=== PATIENT | male | born 1940 | race Caucasian/White ===

== ENCOUNTER 2018-06-23 11:19 | Emergency (ER) | payer MEDICARE ==
[2018-06-23 13:47] LABS: #Eosinphils 0.1 thou/uL (0.0-0.7); #Monocytes 0.5 thou/uL (0.11-0.59); #Neutrophils 3.9 thou/uL (1.40-6.50); %Basophils 0.3 % (0.0-1.0); %Eosinophils 1.2 % (0.0-10.0); %Lymphocytes 18.3 % (21.0-51.0); %Monocytes 8.7 % (0.0-10.0); %Neutrophils 71.5 % (42.0-75.0); Hemoglobin 11.5 g/dL (14.0-18.0); Mean Corpuscular HGB CONC 32.9 g/dL (32.0-36.0); Mean Corpuscular Hemoglobin 33.1 pg (27.0-31.0); Mean Platelet Volume 6.7 fL (7.4-10.4); Platelet Count 187 thou/uL (130-400); RBC Distribution Width 12.8 % (11.5-14.5); Red Blood Cell (RBC) Count 3.49 mill/uL (4.70-6.10); White Blood Cell (WBC) Count 5.5 thou/uL (4.8-10.8)
[2018-06-23 14:09] LABS: ALT (SGPT) 20 U/L (8-55); AST (SGOT) 19 U/L (5-34); Alkaline Phosphatase 98 U/L (40-150); Anion Gap 12 mmol/L (10-20); BUN (Urea Nitrogen) 18 mg/dL (8.4-25.7); Bilirubin, Total 1.4 mg/dL (0.2-1.2); CRP (Inflammatory) Less than 0.50 mg/dL (= or < 0.5); Calc. Creatinine Clearance 0 mL/min (70-130); Calcium 9.4 mg/dL (7.8-10.44); Carbon Dioxide 28 mmol/L (23-31); Chloride 101 mmol/L (98-107); Estimated GFR-MDRD Greater than 90; Globulin 2.3 g/dL (2.4-3.5); Glucose 89 mg/dL (83-110); Potassium 3.9 mmol/L (3.5-5.1); Protein, Total 6.3 g/dL (5.8-8.1); Sodium 137 mmol/L (136-145)
--- NOTE | 2018-06-23 14:11 | RAD ---
THREE VIEWS LUMBOSACRAL SPINE: COMPARISON: None. HISTORY: Back pain for 4 months. FINDINGS: Three views lumbosacral spine show a wedge-compression deformity of the L1, L3, and L4 vertebral bodi es. The L1 vertebral body demonstrates approximately 75% height loss. The L3 and L4 vertebral ene s demonstrate approximately 50% height loss. No significant subluxation of the vertebral bodies is se en. Small osteophytes are seen throughout the lumbar spine. Vascular calcifications are seen. IMPRESSION: Wedge compression deformities of L1, L3, and L4 are likely secondary to chronic compression deformity . POS: [facility]
[2018-06-23] MEDS ORDERED: HYDROcodone/Acetaminophen 5/325 mg Tablet ONE (14:29)
[2018-06-23] MEDS ORDERED: Bacitracin Zinc 1 Packet ONE (14:40)
== END 2018-06-23 14:23 | disposition home or self-care (01) ==
LOC: ERS 11:19
DX: I87.2 Venous insufficiency (chronic) (peripheral) (principal); M54.5 Low back pain; I25.10 Atherosclerotic heart disease of native coronary artery without angina pectoris; I25.2 Old myocardial infarction; I48.91 Unspecified atrial fibrillation; I11.0 Hypertensive heart disease with heart failure; I50.9 Heart failure, unspecified; E78.5 Hyperlipidemia, unspecified; Z87.891 Personal history of nicotine dependence; Z79.899 Other long term (current) drug therapy
CPT/HCPCS: 36415; 72100; 80053; 85025; 85652; 86140

== ENCOUNTER 2018-07-01 09:03 | Outpatient (CLI) | payer MEDICARE ==
[2018-07-01] MEDS ORDERED: Sodium Chloride 0.9% 15 ML NEB ONE (10:00)
--- NOTE | 2018-07-02 07:10 | HP ---
DATE OF SERVICE: 07/01/2018 HISTORY OF PRESENT ILLNESS: Ms. Rut Dejesus is a very pleasant 78-year-old who presents to the [facility] for evaluation of an ulceration of the left anterior lower leg. The patient and his wif e state that Mr. Dejesus was being seen in the Emergency Department for back pain and the ulceration o f the left lower leg was noted. At this time, arrangements were made for the patient to be seen in [facility] [place]. The patient's states that for the past 2 weeks, the wound has been cleansed with Cetaphil and dressed with an antibiotic ointment followed by either a Band-Aid or more recently gauze secured with paper tape. The patient's states that the patient was prescribed co mpression garments several years ago which he uses on an intermittent basis. PAST MEDICAL HISTORY: 1. Coronary artery disease. 2. History of supraventricular tachycardia, status post ablation x5. 3. Osteoarthritis. 4. Ischemic cardiomyopathy. 5. History of ventricular tachycardia. 6. Hypothyroidism. 7. Hypertension. 8. Nephrolithiasis. 9. Reactive airway disease. PAST SURGICAL HISTORY: 1. Coronary artery bypass grafting x4/redo coronary artery bypass gafting. 2. Excision of right wrist ganglion. 3. Right knee arthroplasty. 4. Surgery for left olecranon bursitis. 5. Left ankle surgery. 6. Bilateral herniorrhaphy. 7. Pacemaker/defibrillator implantation. 8. Appendectomy/herniorrhaphy. MEDICATIONS: 1. Levothyroxine. 2. Amiodarone. 3. Coreg. 4. Clopidogrel. 5. Folic acid. 6. Lasix. 7. Spironolactone. 8. Methotrexate. 9. Atorvastatin. 10. Lisinopril. 11. Risedronate Sodium. 12. Multivitamin. 13. Vitamin D3. 14. Turmeric curcumin. 15. Probiotics. 16. Melatonin. ALLERGIES: No known diagnosed allergies. SOCIAL HISTORY: Significant for tobacco use in the past. The patient states that he smoked a pipe f or 25 years, but stopped smoking in 1984. The patient also admits to the consumption of 3-4 drinks p er day for the past 60 years. He states he is not consuming alcohol at the present time because of h is use of p.o. pain medication. FAMILY HISTORY: Significant for coronary artery disease. The patient's mother was diagnosed with co ronary artery disease. Family history is negative for diabetes mellitus. PHYSICAL EXAMINATION: VITAL SIGNS: Temperature 97.8, pulse 89, respirations 19, blood pressure 129/78. GENERAL: A 78-year-old gentleman sitting on chair in examination room in no acute distress. HEENT: Normocephalic, atraumatic. NECK: No nuchal rigidity. CHEST: Clear to auscultation. CARDIAC: Regular rate and rhythm. ABDOMEN: Soft. EXTREMITIES: An ulceration of the left anterior lower leg is present which measures approximately 1. 1 x 1.8 cm. Granulation tissue is present within the wound margins. Nonviable tissue present within the wound margins was debrided with an excisional full-thickness debridement. No purulent drainage is associated with the wound. No erythema of the skin surrounding the wound is present. No macerati on of the skin of the periwound is noted. A posterior tibial pulse is palpable on the left. Mild to moderate edema of the left foot and lower leg is present on exam today. NEUROLOGIC: Grossly nonfocal. ASSESSMENT AND PLAN: 1. Chronic venous hypertension with ulceration, Medihoney, 4 x 4s, ABD, Webril, and 3M Coban 2-layer compression system will be applied to the ulceration of the left anterior lower leg today. I will s ee Mr. Dejesus again in 1 week. No antibiotics will be prescribed today based upon the appearance of the wound. 2. Coronary artery disease. 3. History of supraventricular tachycardia, status post ablation x5. 4. Osteoarthritis. 5. Ischemic cardiomyopathy. 6. History of ventricular tachycardia. 7. Hypothyroidism. 8. Nephrolithiasis. 9. Reactive airway disease. 10. Hypertension.
== END 2018-07-01 09:04 | disposition home or self-care (01) ==
LOC: WCC 09:03
PROVIDERS: ATTEND Family Medicine
DX: I87.312 Chronic venous hypertension (idiopathic) with ulcer of left lower extremity (principal); L97.929 Non-pressure chronic ulcer of unspecified part of left lower leg with unspecified severity; I25.10 Atherosclerotic heart disease of native coronary artery without angina pectoris; M19.90 Unspecified osteoarthritis, unspecified site; I25.5 Ischemic cardiomyopathy; E03.9 Hypothyroidism, unspecified; N20.0 Calculus of kidney; J45.909 Unspecified asthma, uncomplicated; I10 Essential (primary) hypertension; Z86.79 Personal history of other diseases of the circulatory system
CPT/HCPCS: A4218

== ENCOUNTER 2018-07-08 11:29 | Outpatient (CLI) | payer MEDICARE ==
[~2018-07-08 11:29] MED LIST: Sodium Chloride 0.9% 15 ML NEB ONE
--- NOTE | 2018-07-08 11:43 | PRG ---
DATE OF SERVICE: 07/08/2018 HISTORY: Mr. Rut Dejesus is a very pleasant 78-year-old gentleman who presents to the [facility] for evaluation of an ulceration of the left anterior lower leg. The patient and his morenita gorman stated that Mr. Dejesus was being seen in the Emergency Department for back pain and the ulceratio n of the left lower leg was noted. At this time, arrangements were made for the patient to be seen i n the [facility]. Prior to being seen in the Wound Center, the patient's stated th e wound had been cleansed with Cetaphil and dressed with an antibiotic ointment followed by either a Band-Aid or subsequently gauze secured with paper tape for the 2 weeks prior to the patient's initial visit. The patient's stated that the patient was prescribed compression garments several years ago which he uses on an intermittent basis. After being seen in the Wound Center, Medihoney, 4 x 4s , ABD, Webril, and 3M Coban 2 layer compression system were applied to the ulceration of the left ant erior lower leg. PHYSICAL EXAMINATION: VITAL SIGNS: Temperature 97.8, pulse 84, respirations 19, blood pressure 111/56. EXTREMITIES: An ulceration of the left anterior lower leg is present which measures approximately 0. 8 x 0.6 cm. The dimensions of the wound at the time of the patient's visit on 07/01/2018 were approx imately 1.1 x 1.8 cm. Granulation tissue is present within the wound margins. Nonviable tissue pres ent within the wound margins was debrided with an excisional full-thickness debridement. No purulent drainage is associated with the wound. No erythema of the skin surrounding the wound is present. N o maceration of the skin of the periwound is noted. A posterior tibial pulse is easily palpable on t he left. Mild to moderate edema of the left foot and lower leg is again present on today's exam. ASSESSMENT AND PLAN: 1. Chronic venous hypertension with ulceration. Medihoney, 4 x 4s, Webril, and 3M Coban 2-layer com pression system will be applied to the ulceration of the left anterior lower leg today. I will see Radha Dejesus again in 1 week. 2. Coronary artery disease. 3. History of supraventricular tachycardia, status post ablation x5. 4. Osteoarthritis. 5. Ischemic cardiomyopathy. 6. History of ventricular tachycardia. 7. Hypothyroidism. 8. Nephrolithiasis. 9. Reactive airway disease. 10. Hypertension.
== END 2018-07-08 11:30 | disposition home or self-care (01) ==
LOC: WCC 11:29
PROVIDERS: ATTEND Family Medicine
DX: I87.312 Chronic venous hypertension (idiopathic) with ulcer of left lower extremity (principal); L97.929 Non-pressure chronic ulcer of unspecified part of left lower leg with unspecified severity; I25.10 Atherosclerotic heart disease of native coronary artery without angina pectoris; M19.90 Unspecified osteoarthritis, unspecified site; I25.5 Ischemic cardiomyopathy; E03.9 Hypothyroidism, unspecified; N20.0 Calculus of kidney; J45.909 Unspecified asthma, uncomplicated; I10 Essential (primary) hypertension; Z98.890 Other specified postprocedural states
CPT/HCPCS: 11042

== ENCOUNTER 2018-07-15 10:44 | Outpatient (CLI) | payer MEDICARE ==
--- NOTE | 2018-07-15 11:27 | PRG ---
DATE OF SERVICE: 07/15/2018 HISTORY: Mr. Rut Dejesus is a very pleasant 78-year-old gentleman who presents to the [facility] for evaluation of an ulceration of the left anterior lower leg. The patient and his morenita gorman stated that Mr. Dejesus was being seen in the Emergency Department for back pain and the ulceratio n of the left lower leg was noted. At this time, arrangements were made for the patient to be seen i the [facility]. Prior to being seen in the Wound Center, the patient's stated th e wound has been cleansed with Cetaphil and dressed with an antibiotic ointment followed by either a Band-Aid or subsequently gauze secured with paper tape for the 2 weeks prior to being seen in the [facility]. The patient's stated that the patient was prescribed compression garments several ye ars ago which he uses on an intermittent basis. After being seen in the Wound Center, Medihoney, 4 x 4s, ABD, Webril, and 3M Coban 2 layer compression system were applied to the ulceration of the left anterior lower leg. The patient received dressing changes of Medihoney on a weekly basis in conjunct ion with the 3M Coban 2 layer compression system. PHYSICAL EXAMINATION: VITAL SIGNS: Temperature 98.1, pulse 91, respirations 18, blood pressure 124/62. EXTREMITIES: The ulceration of the left anterior lower leg has healed completely. A posterior tibia l pulse is palpable on the left. Mild to moderate edema of the left foot and lower leg is again pres ent on exam today. ASSESSMENT AND PLAN: 1. Chronic venous hypertension with ulceration. As stated above, the ulceration has healed complete ly and Mr. Dejesus will be discharged from clinic today with followup on a p.r.n. basis. The patient states he will resume utilizing his compression garments consistently. 2. Coronary artery disease. 3. History of supraventricular tachycardia, status post ablation x5. 4. Osteoarthritis. 5. Ischemic cardiomyopathy. 6. History of ventricular tachycardia. 7. Hypothyroidism. 8. Nephrolithiasis. 9. Reactive airway disease. 10. Hypertension.
== END 2018-07-15 10:45 | disposition home or self-care (01) ==
LOC: WCC 10:44
PROVIDERS: ATTEND Family Medicine
DX: I87.312 Chronic venous hypertension (idiopathic) with ulcer of left lower extremity (principal); L97.929 Non-pressure chronic ulcer of unspecified part of left lower leg with unspecified severity; I25.10 Atherosclerotic heart disease of native coronary artery without angina pectoris; M19.90 Unspecified osteoarthritis, unspecified site; I25.5 Ischemic cardiomyopathy; E03.9 Hypothyroidism, unspecified; N20.0 Calculus of kidney; J45.909 Unspecified asthma, uncomplicated; I10 Essential (primary) hypertension
CPT/HCPCS: 97602

== ENCOUNTER 2018-08-26 16:24 | Observation (INO) | payer MEDICARE ==
[2018-08-26 18:17] LABS: #Lymphocytes 1.1 thou/uL (1.20-3.40); #Monocytes 0.4 thou/uL (0.11-0.59); #Neutrophils 2.2 thou/uL (1.40-6.50); %Basophils 0.3 % (0.0-1.0); %Lymphocytes 29.7 % (21.0-51.0); %Monocytes 11.3 % (0.0-10.0); %Neutrophils 57.8 % (42.0-75.0); Hemoglobin 10.7 g/dL (14.0-18.0); Mean Corpuscular HGB CONC 34.6 g/dL (32.0-36.0); Mean Platelet Volume 7.1 fL (7.4-10.4); Platelet Count 169 thou/uL (130-400); RBC Distribution Width 13.7 % (11.5-14.5); Red Blood Cell (RBC) Count 3.07 mill/uL (4.70-6.10); White Blood Cell (WBC) Count 3.8 thou/uL (4.8-10.8)
[2018-08-26 18:37] LABS: ALT (SGPT) 12 U/L (8-55); AST (SGOT) 15 U/L (5-34); Albumin 4.2 g/dL (3.4-4.8); Alkaline Phosphatase 74 U/L (40-150); Anion Gap 11 mmol/L (10-20); BUN (Urea Nitrogen) 33 mg/dL (8.4-25.7); Bilirubin, Total 1.2 mg/dL (0.2-1.2); Calc. Creatinine Clearance 0 mL/min (70-130); Calcium 9.3 mg/dL (7.8-10.44); Carbon Dioxide 32 mmol/L (23-31); Chloride 99 mmol/L (98-107); Estimated GFR-MDRD 42; Globulin 2.3 g/dL (2.4-3.5); Glucose 98 mg/dL (83-110); Potassium 4.2 mmol/L (3.5-5.1); Protein, Total 6.5 g/dL (5.8-8.1); Sodium 138 mmol/L (136-145)
[2018-08-26 18:42] LABS: CKMB 1.5 ng/mL (0-6.6)
[2018-08-26] MEDS ORDERED: Aspirin 325 MG TAB ONE (19:39)
--- NOTE | 2018-08-26 19:50 | RAD ---
FRONTAL AND LATERAL IMAGING OF THE CHEST: Date: 08-26-18 Comparison: 06-16-07 History: Weight loss, pain around defibrillator. FINDINGS: Multi-lead transvenous AICD noted, inserted via left subclavian approach. Midline sternotomy wires an d mediastinal clips are present. There is atherosclerotic calcification in the aortic arch. There is increased linear interstitial density with pulmonary hyperinflation, stable. No pneumothorax, pleural fluid, lobar consolidation or alveolar edema. The lateral examination demonstrates evidence of fract ure deformities of upper lumbar spine and at the thoracolumbar junction, not well characterized on th is examination, of indeterminate age. IMPRESSION: No acute findings - stable appearance of the chest. POS: [facility]
[2018-08-26] MEDS ORDERED: Acetaminophen 325 MG TAB PO PRN (20:42)
[2018-08-26] MEDS ORDERED: Ondansetron PF 4 MG/2 ML Vial IVP PRN (20:42)
[2018-08-26] MEDS ORDERED: Nitroglycerin 0.4 MG TAB (25 Tab Bottle) PO PRN (20:42)
[2018-08-26] MEDS ORDERED: Ondansetron ODT 4 MG TAB PO PRN (20:42)
[2018-08-26] MEDS ORDERED: Senokot S 8.6-50 MG TAB PO PRN (20:42)
[2018-08-26] MEDS ORDERED: Bisacodyl 5 MG TAB PO PRN (20:42)
[2018-08-26] MEDS ORDERED: Sodium Chloride 0.9% 1,000 ML IV SCH (20:45)
[2018-08-26] MEDS ORDERED: Atorvastatin Calcium 40 MG TAB PO SCH (21:00)
[2018-08-26] MEDS ORDERED: Famotidine 20 MG TAB PO SCH (21:00)
[2018-08-26] MEDS ORDERED: Famotidine/PF 20 mg/2ml Vial SLOW IVP SCH (21:00)
[2018-08-26 21:26] VITALS: BMI 27.3
[2018-08-26 22:11] LABS: #Lymphocytes 1.1 thou/uL (1.20-3.40); #Monocytes 0.3 thou/uL (0.11-0.59); #Neutrophils 2.2 thou/uL (1.40-6.50); %Basophils 0.4 % (0.0-1.0); %Lymphocytes 29.5 % (21.0-51.0); %Monocytes 8.5 % (0.0-10.0); %Neutrophils 60.5 % (42.0-75.0); Mean Corpuscular HGB CONC 34.7 g/dL (32.0-36.0); Mean Corpuscular Hemoglobin 35.3 pg (27.0-31.0); Mean Platelet Volume 7.1 fL (7.4-10.4); Platelet Count 155 thou/uL (130-400); RBC Distribution Width 13.8 % (11.5-14.5); Red Blood Cell (RBC) Count 2.85 mill/uL (4.70-6.10); White Blood Cell (WBC) Count 3.6 thou/uL (4.8-10.8)
[2018-08-26] MEDS: Folic Acid 1 MG TAB PO SCH (22:15)
[2018-08-26 22:37] LABS: Iron 49 ug/dL (65-175); Iron Binding Capacity, Total 264 mcg/dL (261-462)
[2018-08-26 23:08] LABS: Vitamin B12 322 pg/mL (211-911)
[2018-08-26] MEDS ORDERED: Simethicone Chewable 80 MG TAB PO PRN (23:19)
[2018-08-27 01:05] LABS: Folate (Folic Acid) Greater than 76.00 ng/mL (7.0-31.4)
[2018-08-27 01:28] LABS: Troponin I 0.011 ng/mL (< 0.028)
[2018-08-27] MEDS: HYDROcodone/Acetaminophen 5/325 mg Tablet PO PRN ×2 (02:10→09:21)
[2018-08-27 02:26] LABS: #Lymphocytes 1.2 thou/uL (1.20-3.40); #Monocytes 0.4 thou/uL (0.11-0.59); #Neutrophils 2.7 thou/uL (1.40-6.50); %Basophils 0.2 % (0.0-1.0); %Eosinophils 0.9 % (0.0-10.0); %Lymphocytes 27.3 % (21.0-51.0); %Monocytes 8.5 % (0.0-10.0); %Neutrophils 63.1 % (42.0-75.0); Hemoglobin 10.8 g/dL (14.0-18.0); Mean Corpuscular HGB CONC 34.3 g/dL (32.0-36.0); Mean Corpuscular Hemoglobin 35.2 pg (27.0-31.0); Mean Platelet Volume 6.9 fL (7.4-10.4); Platelet Count 166 thou/uL (130-400); RBC Distribution Width 13.5 % (11.5-14.5); Red Blood Cell (RBC) Count 3.07 mill/uL (4.70-6.10); White Blood Cell (WBC) Count 4.3 thou/uL (4.8-10.8)
[2018-08-27 02:51] LABS: Troponin I 0.018 ng/mL (< 0.028)
[2018-08-27 02:54] LABS: Anion Gap 10 mmol/L (10-20); BUN (Urea Nitrogen) 29 mg/dL (8.4-25.7); BUN/Creatinine Ratio 19.46; Calc. Creatinine Clearance 50 mL/min (70-130); Calcium 9.3 mg/dL (7.8-10.44); Carbon Dioxide 30 mmol/L (23-31); Cardiac Risk 3.1 (Less than 4.5); Chloride 101 mmol/L (98-107); Cholesterol 122 mg/dl (< 200 Desired); Estimated GFR-MDRD 46; Glucose 102 mg/dL (83-110); HDL Cholesterol 39 mg/dL (>60 Neg Risk); LDL Cholesterol, Calculated 55 mg/dL; Phosphorus 3.6 mg/dL (2.3-4.7); Potassium 3.9 mmol/L (3.5-5.1); Sodium 137 mmol/L (136-145); Triglycerides 139 mg/dL (Less than 150)
[2018-08-27] MEDS ORDERED: Iron Sucrose Complex 200 MG in Sodium Chloride 0.9% 250 ML 250 ML IVPB SCH (04:45)
[2018-08-27] MEDS ORDERED: Iron, Sodium Ferric Gluconate 250 MG in Sodium Chloride 0.9% 250 ML 250 ML IVPB SCH (06:00)
--- NOTE | 2018-08-27 07:49 | HP ---
CHIEF COMPLAINT: Left-sided chest soreness. HISTORY OF PRESENT ILLNESS: This is a 78-year-old pleasant male with a past medical history of coronary artery disease, CHF, DE, atrial fibrillation, status post AICD since 2006, hyperlipidemia, hypertension, osteoarthritis, chronic back pain, and scoliosis, presenting with left-sided soreness. Per the patient, the soreness is around where his pacemaker is. The patient states that the pain is intermittent and it has been ongoing for the past week and pressing around the region makes the pain worse. Since the pain has not been resolving, it prompted him to come to the ED to be evaluated because the patient states that in 1992, he had chest pain and he had to go to an urgent care center, and when he was there, that is when a physician found that he had a serious heart disease. Therefore, he was transferred to [facility] and that is when he met Dr. Gann, who performed open heart surgery on him and saved his life. At this point, the patient states that chest pain has resolved and he denies any fever, cough, dizziness, abdominal pain, shortness of breath, dysuria, hematuria, hematochezia, or melena. Of note, the patient was seen in our hospital on 12/14/2014 for lightheadedness and near syncope and during that time, the patient was having multiple episodes of nonsustained ventricular tachycardia. The patient was transferred to [facility] in [place] for higher level of care during that hospital visit, and the patient required 3D ablation for persistent ventricular tachycardias. The patient's previous echo, which was done, showed that the patient had left ventricular ejection fraction of 30% with inferior akinesis, mild mitral regurgitation. Cardiac catheterization was done in 2014, which showed left anterior descending 100% occluded proximally, the saphenous vein graft to the LAD was approximately 50% narrowed, so the patient had to get like CABG revision. REVIEW OF SYSTEMS: Positive for chest discomfort, otherwise as documented in the HPI. All other systems were reviewed and are negative. PAST MEDICAL HISTORY: Coronary artery disease, congestive heart failure, DE in the past, atrial fibrillation, AICD placement, hyperlipidemia, hypertension, osteoarthritis, chronic back pain, scoliosis. FAMILY HISTORY: Reviewed and noncontributory to today's visit. PAST SURGICAL HISTORY: The patient had right knee replacement, left leg repair, appendectomy, CABG x4, status post cardiac arrest in 1992, hernia repair x3, hemorrhoids, CABG x3 in July 2016, and 4 ablations done. PSYCHIATRIC HISTORY: No previous psych history. SOCIAL HISTORY: The patient drinks occasionally. The patient denies drug use. The patient is a former tobacco user, smoked cigarettes, the patient quit more than 10 years ago. Per the patient's , the patient has been drinking a lot during the night to go to sleep. The patient drinks [place]. KNOWN ALLERGIES: The patient is allergic to cephalosporins, methacarb. CURRENT MEDICATIONS: The patient takes: 1. Lasix 40 mg. 2. Spironolactone 25 mg. 3. Folic acid 2.5 mg. 4. Methotrexate 2.5 mg. 5. Clopidogrel 75 mg. 6. Carvedilol 12.5 mg. 7. Atorvastatin 40 mg. 8. Levothyroxine 50 mcg. 9. Amiodarone 100 mg. 10. Entresto 24/26 mg. PHYSICAL EXAMINATION: VITAL SIGNS: Blood pressure is 92/55, pulse of 70, respiratory rate of 18, temperature of 98.1, and O2 saturation of 94 on room air. GENERAL: The patient is awake, alert, and oriented x3, not in acute distress. The patient is very pleasant, appears his stated age. HEENT: Normocephalic and atraumatic. Pupils are equally round and reactive to light. Mucous membranes are moist. Extraocular movements are intact. No scleral icterus. No conjunctival pallor. NECK: Trachea is midline. Full range of motion. No JVD is noted. Supple. LUNGS: Clear to auscultation bilaterally. No wheezing, no rales, no rhonchi is appreciated. CARDIAC: Positive S1 and S2. Regular rate and rhythm. No murmurs, no gallops, no rubs appreciated. ABDOMEN: Soft, nontender, and nondistended. Positive bowel sounds in all quadrants. EXTREMITIES: The patient has 5/5 upper extremity strength and 5/5 lower extremity strength. The patient also has 1+ pitting edema of the lower extremities. Good pulses bilaterally. NEUROLOGIC: Cranial nerves 2 through 12 grossly intact. No neurologic deficits noted. SKIN: Warm, dry, and intact. PSYCHIATRIC: The patient is awake, alert, and oriented x3. Normal affect. DIAGNOSTIC STUDIES: EKG that was done shows AV dual-paced rhythm. LABORATORY DATA: WBC is 3.8, hemoglobin is 10.7, hematocrit is 31.1, and platelet count is 169,000. Sodium is 138, potassium is 4.2, chloride is 99, carbon dioxide of 32, anion gap of 11, BUN is 33, and creatinine is 1.6. Iron is 49 and TIBC 264. AST is 15 and ALT is 12. ASSESSMENT AND PLAN: This is a 78-year-old male with multiple comorbidities and extensive cardiac history, being admitted for; 1. Left-sided chest discomfort. At this point, we will rule out acute coronary syndrome. We have ordered troponins and trending troponins if troponins have been negative x2. We have ordered an echo to follow up on . We have also consulted Cardiology and we will follow up Cardiology's recommendation. 2. Acute kidney injury, likely due to diuretic use and dehydration. The patient's baseline creatinine is 0.82. At this point, it has been elevated to 1.6. We will do the patient gentle hydration and we will get renal panel. We will follow up on renal panel and we will monitor the patient's morning BMP, and we will hold the patient's diuretics at this time. 3. Macrocytic anemia, likely due to a combination of iron deficiency and B12 deficiency. At this point, we have ordered anemia panel. We will start the patient on Venofer and B12 supplements. 4. History of coronary artery disease. We will continue the patient on home medications. 5. Deep venous thrombosis and gastrointestinal prophylaxis. 6. History of hypertension, hyperlipidemia, and arthritis. We will continue the patient on home medications. Job ID: [id number]
[2018-08-27] MEDS ORDERED: Cyanocobalamin (Vitamin B-12) 1,000 MCG TAB PO SCH (09:00)
[2018-08-27] MEDS ORDERED: Enoxaparin Sodium 30 MG/0.3 ML SYRINGE SC SCH (09:00)
[2018-08-27] MEDS ORDERED: Clopidogrel Bisulfate 75 MG TAB PO SCH (09:00)
[2018-08-27] MEDS ORDERED: Aspirin 325 MG TAB PO SCH (09:00)
[2018-08-27] MEDS ORDERED: ADENOSINE 60 MG/20 ML VIAL ONE (09:03)
[2018-08-27] MEDS ORDERED: Sodium Chloride 0.9% 1,000 ML IV SCH (09:17)
[2018-08-27] MEDS: Carvedilol 6.25 MG TAB PO SCH ×2 (13:16→18:27)
[2018-08-27] MEDS: Folic Acid 1 MG TAB PO SCH (13:17)
--- NOTE | 2018-08-27 14:04 | NM ---
CARDIAC SPECT: CLINICAL HISTORY: 78-year-old male with chest pain, coronary artery disease, NC, CABG, CHF, atrial fibrillation, hypert ension, and dyslipidemia. TECHNIQUE: A myocardial perfusion scan was performed using the single isotope one day protocol with technetium-9 9m sestamibi. 10 mCi were injected intravenously for the rest exam followed by 31 mCi for the stress exam. Pharmacologic stress with Adenosine was monitored and interpreted by Estelita Michaud NP. FINDINGS: There are large fixed defects involving the inferior and lateral denson. No reversible defects are see n. GATED SPECT LVEF: 26%. WALL MOTION EXAM: Global hypokinesis with severe inferolateral wall hypokinesis. IMPRESSION: 1. No evidence of reversible ischemia. 2. Scarring of lateral and inferior denson. POS: [facility]
[2018-08-27 17:01] LABS: Anion Gap 9 mmol/L (10-20); BUN (Urea Nitrogen) 22 mg/dL (8.4-25.7); Calc. Creatinine Clearance 67 mL/min (70-130); Calcium 9.1 mg/dL (7.8-10.44); Carbon Dioxide 31 mmol/L (23-31); Chloride 105 mmol/L (98-107); Estimated GFR-MDRD 64; Glucose 90 mg/dL (83-110); Potassium 4.1 mmol/L (3.5-5.1); Sodium 141 mmol/L (136-145)
[2018-08-27 17:24] VITALS: BP 91/52; TEMP 98.3
--- NOTE | 2018-08-27 18:35 | PRG ---
DATE OF SERVICE: 08/27/2018 SUBJECTIVE: Mr. Dejesus is feeling better. He has not had any further chest pain. He was admitted to the hospital yesterday with some atypical chest pain, left lateral. OBJECTIVE: VITAL SIGNS: Blood pressure 107/55, pulse 72 and regular. LUNGS: Clear. CARDIAC: Normal S1. Normal S2. ABDOMEN: Soft and nontender. EXTREMITIES: Moderate edema. inferior scar with no ischemia. ASSESSMENT: 1. Chest pain, atypical for angina. 2. Bypass on 2 occasions. 3. Renal failure with creatinine 1.61 yesterday, 1.49 today. PLAN: 1. Reduce torsemide to 20 mg twice a day starting tomorrow. 2. . 3. We will check defibrillator. 4. If creatinine is continuing to improve, he can be released home. 5. Increase Entresto. Job ID: [id number]
[2018-09-02] MEDS ORDERED: Methotrexate Sodium 2.5 MG TAB PO SCH (09:00)
== END 2018-08-27 18:29 | disposition home or self-care (01) ==
LOC: ERS 16:24 → 2SW 21:15
PROVIDERS: ADMIT Family Medicine; ATTEND Family Medicine
DX: R07.89 Other chest pain (principal); E78.5 Hyperlipidemia, unspecified; M19.90 Unspecified osteoarthritis, unspecified site; I11.0 Hypertensive heart disease with heart failure; I50.9 Heart failure, unspecified; G89.29 Other chronic pain; M54.9 Dorsalgia, unspecified; M41.9 Scoliosis, unspecified; I48.91 Unspecified atrial fibrillation; I25.2 Old myocardial infarction; N17.9 Acute kidney failure, unspecified; D53.9 Nutritional anemia, unspecified; Z95.810 Presence of automatic (implantable) cardiac defibrillator; Z87.891 Personal history of nicotine dependence; Z88.8 Allergy status to other drugs, medicaments and biological substances; Z88.1 Allergy status to other antibiotic agents; Z79.83 Long term (current) use of bisphosphonates; Z79.02 Long term (current) use of antithrombotics/antiplatelets; Z79.899 Other long term (current) drug therapy
CPT/HCPCS: 71046; 78452; 80048; 80053; 80061; 80069; 82553; 82607; 82746; 83540; 83550; 84484 ×3; 85025 ×3; 93005; 93017; 93306; 94760; 96360; 96361 ×2; 99285; A9500; G0378 ×2; 36415; J0153; J2916; J7050

== ENCOUNTER 2019-01-09 12:28 | Observation (INO) | payer MEDICARE ==
--- NOTE | 2019-01-09 13:16 | RAD ---
CHEST 1 VIEW: Date; 01/09/19 INDICATION: Chest pain. COMPARISON: Prior exam dated 08/26/18. FINDINGS: There is stable cardiomegaly. The lungs are clear. AICD post CABG change is stable. No pleural effusi on or pneumothorax evident. IMPRESSION: Stable cardiomegaly. No definite acute cardiopulmonary abnormality. POS: [facility]
[2019-01-09 13:22] LABS: ALT (SGPT) 13 U/L (8-55); AST (SGOT) 15 U/L (5-34); Albumin 4.3 g/dL (3.4-4.8); Alkaline Phosphatase 66 U/L (40-150); Anion Gap 13 mmol/L (10-20); BUN (Urea Nitrogen) 15 mg/dL (8.4-25.7); Bilirubin, Total 0.9 mg/dL (0.2-1.2); Calc. Creatinine Clearance 0 mL/min (70-130); Calcium 9.8 mg/dL (7.8-10.44); Carbon Dioxide 33 mmol/L (23-31); Chloride 101 mmol/L (98-107); Estimated GFR-MDRD 65; Globulin 2.3 g/dL (2.4-3.5); Glucose 117 mg/dL (83-110); Lipase 38 U/L (8-78); Potassium 3.5 mmol/L (3.5-5.1); Protein, Total 6.6 g/dL (5.8-8.1); Sodium 143 mmol/L (136-145)
[2019-01-09 13:25] LABS: Hemoglobin 11.8 g/dL (14.0-18.0); Mean Corpuscular HGB CONC 32.9 g/dL (32.0-36.0); Mean Corpuscular Hemoglobin 34.5 pg (27.0-31.0); Mean Platelet Volume 6.7 fL (7.4-10.4); Platelet Count 197 thou/uL (130-400); RBC Distribution Width 12.5 % (11.5-14.5); Red Blood Cell (RBC) Count 3.43 mill/uL (4.70-6.10); White Blood Cell (WBC) Count 3.6 thou/uL (4.8-10.8)
[2019-01-09 13:31] LABS: #Lymphocytes 0.9 thou/uL (1.20-3.40); #Monocytes 0.4 thou/uL (0.11-0.59); #Neutrophils 2.3 thou/uL (1.40-6.50); %Basophils 1.2 % (0.0-1.0); %Lymphocytes 24.5 % (21.0-51.0); %Neutrophils 63.3 % (42.0-75.0); Platelet Morphology Comment Appears Adequate
[2019-01-09] MEDS ORDERED: Furosemide 40 MG/4 ML VIAL ONE (13:46)
[2019-01-09] MEDS ORDERED: Nitroglycerin 2% Ointment 1 INCH/1 GM Packet ONE (13:46)
[2019-01-09] MEDS ORDERED: HYDROcodone/Acetaminophen 5/325 mg Tablet PO PRN (14:18)
[2019-01-09] MEDS ORDERED: Aspirin 325 mg Enteric Coated Tablet PO SCH (14:30)
--- NOTE | 2019-01-09 15:15 | HP ---
PRIMARY CARE PROVIDER: Dr. Carmichael in [place]. PROFILING MACHINE OPERATOR: Dr. Gann. HISTORY OF PRESENT ILLNESS: The patient complains of left mammary area chest pain lasted about 1-1/2 hours a day about 5 minutes yesterday, described more as aching than anything else. No shortness of breath, nausea, sweats, or radiation. He says it did make him nervous. PAST MEDICAL HISTORY: Complicated. He has coronary artery disease; cardiomyopathy, 20% to 25%; paroxysmal atrial fibrillation; AICD placement; dyslipidemia; hypertension; osteoarthritis; chronic back pain. CURRENT MEDICATIONS: 1. Spironolactone 25 mg a day. 2. Plavix 75 mg a day. 3. Atorvastatin 40 mg a day. 4. Levothyroxine 50 mcg a day. 5. Amiodarone 100 mg once a day. 6. Folic acid 2 mg two times a day. 7. Torsemide 20 mg twice a day. 8. Methotrexate 12.5 mg once a day Thursday. 9. [place] 5/325 one every 4 hours as needed for pain, three a day limit. 10. Entresto 49/51 one p.o. b.i.d. and some [id number] medicines. ALLERGIES: 1. CEPHALOSPORINS. 2. METHOCARBAMOL. PAST SURGICAL HISTORY: Right total knee replacement, left leg surgery, appendectomy, coronary artery bypass graft done in 1992 and 2016, hernia repair x3, hemorrhoidectomy. He has had 4 ablations for atrial fibrillation. FAMILY HISTORY: Significant for multiple members with coronary artery disease. SOCIAL HISTORY: . at bedside. Full code status. She is a next of kin. Has occasional alcohol. Quit smoking greater than 10 years ago. REVIEW OF SYSTEMS: GENERAL: No headaches, dizziness, fainting. EYES: Recent cataract surgery. No double vision, flashing lights, some blurring. EARS, NOSE, AND THROAT: He has had a runny nose. No bleeding. Clear fluid. No ear pain or drainage. No trouble swallowing. CARDIAC: No pressure, chest pain. No orthopnea. No paroxysmal nocturnal dyspnea. RESPIRATION: No cough, wheezing, or asthma. GASTROINTESTINAL: He has soft, but not fluid stools. He takes a probiotic. He has no nausea, vomiting, or abdominal pain. Several days ago, he regurgitated 2 hours after a meal and there were large chunks of food. He apparently does not chew his food well. GENITOURINARY: No hematuria, dysuria. MUSCULOSKELETAL: Occasional swelling in the left leg post vein donation for coronary artery bypass graft. Otherwise, no pain or swelling. NEUROLOGICAL: No strokes, seizures, or focal weakness. PSYCHIATRIC: No anxiety or depression. SKIN: Bruises easily. No rash. HEME/LYMPH: No tender or swollen lymph nodes in the axilla, inguinal, or cervical area. BACK: He has had three compression fractures. He has chronic back pain. Feels better. Sleeping in a recliner. He has been told to sleep on his back with his legs elevated. PHYSICAL EXAMINATION: GENERAL: Alert, oriented, cooperative pleasant gentleman. VITAL SIGNS: Blood pressure 126/68, pulse 63, respirations 18, room air sat 97%, temperature 98.1. HEAD, EYES, EARS, NOSE, AND THROAT: Revealed pupils equal and round with implants. Extraocular movements are intact. Sclerae are white. Tympanic membranes are clear. Nose clear. Oral mucous membranes are wet. He has multiple missing teeth. NECK: No jugular venous distention, adenopathy, or thyromegaly. CHEST: Clear to auscultation and percussion with no focal findings. HEART: Regular rate and rhythm. First and second heart sounds clear. No murmurs or gallops. ABDOMEN: Soft. Bowel sounds normal. No hepatosplenomegaly. No mass. No rebound. No bruits. EXTREMITIES: Reveal no cyanosis, clubbing, or edema. He does have some skin changes of vascular stasis on his left lower leg. PULSES: Carotid, radial, femoral, and dorsalis pedis pulses are intact and symmetric. SKIN: Warm and dry with bruises on his forearms. HEME/LYMPH: No tender or swollen lymph nodes in the axilla, inguinal, cervical area. No petechial hemorrhages. NEUROLOGICAL: Cranial nerves 2 through 12 are intact. Deep tendon reflexes symmetric. Moves all extremities. IMAGING: Chest x-ray; no cardiomegaly, CHF, or infiltrate, reviewed by me. EKG; biventricular pacemaker, reviewed by me. LABORATORY DATA: White cell count 3.6, hemoglobin 11.8, platelet count 197,000. Comprehensive metabolic profile normal except for a glucose of 117, CO2 of 33. Cardiac enzymes; troponin 0.015. BNP 278. I reviewed his last echo within the last year, with a 20% to 25% EF. DIAGNOSES: Atypical chest pain; coronary artery disease; paroxysmal atrial fib; hypertension; cardiomyopathy, 20% to 25%; dyslipidemia; biventricular pacemaker. PLAN: 1. Continue aspirin. 2. Continue home medicines. 3. Serial enzymes. If his enzymes are normal, I suspect he can be discharged. I do not see any benefit to a stress test as he had a nonreversible for ischemia stress test done on 08/27/2018. Job ID: [id number]
[2019-01-09 16:15] VITALS: BMI 28.1
[2019-01-09 16:20] LABS: Troponin I 0.012 ng/mL (< 0.028)
[2019-01-09 19:17] LABS: Troponin I 0.012 ng/mL (< 0.028)
[2019-01-09] MEDS ORDERED: Torsemide 20 MG TAB PO SCH (21:00)
[2019-01-09] MEDS ORDERED: Atorvastatin Calcium 40 MG TAB PO SCH (21:00)
[2019-01-09] MEDS ORDERED: Sacubitril 49 MG/Valsartan 51 MG TABLET PO SCH (21:00)
[2019-01-09] MEDS: Folic Acid 1 MG TAB PO SCH (21:13)
[2019-01-10] MEDS ORDERED: Levothyroxine Sodium 50 MCG TAB PO SCH (06:00)
[2019-01-10] MEDS ORDERED: Multivit, Therapeutic 1 TAB PO SCH (09:00)
[2019-01-10] MEDS ORDERED: Torsemide 20 MG TAB PO SCH (09:00)
[2019-01-10] MEDS ORDERED: Spironolactone 25 MG TAB PO SCH (09:00)
[2019-01-10] MEDS ORDERED: Enoxaparin Sodium 40 MG/0.4 ML SYRINGE SC SCH (09:00)
[2019-01-10] MEDS ORDERED: Aspirin 325 mg Enteric Coated Tablet PO SCH (09:00)
[2019-01-10] MEDS ORDERED: Amiodarone 200 MG TAB PO SCH (09:00)
[2019-01-10] MEDS ORDERED: Sacubitril 49 MG/Valsartan 51 MG TABLET PO SCH ×2 (09:00)
[2019-01-10] MEDS ORDERED: Clopidogrel Bisulfate 75 MG TAB PO SCH (09:00)
[2019-01-10] MEDS: Folic Acid 1 MG TAB PO SCH (09:47)
--- NOTE | 2019-01-10 11:35 | PRG ---
DATE OF SERVICE: 01/10/2019 SUBJECTIVE: Mr. Dejesus came to the hospital with some left-sided chest pain. He said at this point feeling well. He had some upset stomach last week. He is feeling better now. No anginal chest pain. OBJECTIVE: VITAL SIGNS: His blood pressure 103/56, pulse 80. LUNGS: Clear. CARDIAC: Normal S1 and normal S2. ABDOMEN: Soft and nontender. EXTREMITIES: No edema. Defibrillator was interrogated. He has a very low burden of atrial fibrillation. His OptiVol is not elevated. ASSESSMENT: 1. Atypical chest pain. 2. Previous bypass on 2 different occasions. 3. History of left ventricular dysfunction. PLAN: 1. Okay to go home on current medical regimen. 2. Come and see us in office in 4 to 6 weeks. Job ID: [id number]
[2019-01-10 11:51] VITALS: BP 106/56; TEMP 98.4
--- NOTE | 2019-01-10 14:01 | DIS ---
DATE OF ADMISSION: 01/09/2019 DATE OF DISCHARGE: 01/10/2019 PRIMARY CARE PHYSICIAN: Dr. Yuli Carmichael. PRIMARY CLIENT ANALYST: Tahir Gann MD DISCHARGE DISPOSITION: Home. CONDITION AT THE TIME OF DISCHARGE: Stable and improved. DISCHARGE DIAGNOSIS: Chest pain, acute coronary syndrome ruled out. SECONDARY DISCHARGE DIAGNOSES: 1. History of coronary artery disease, status post coronary artery bypass grafting in the past. 2. History of cardiomyopathy, likely ischemic status post AICD placement in the past. 3. Paroxysmal atrial fibrillation. 4. Dyslipidemia. 5. Hypertension. 6. Osteoarthritis. 7. Chronic back pain. 8. Chronic alcohol use. DISCHARGE MEDICATIONS: Remain the same as admission medications. No changes were made. Please see admission history and physical dictated by Dr. Montelongo on 01/09/2019 for full list. IN-HOUSE CONSULTATION: Cardiology, Dr. Gann. PROCEDURES DONE IN THE HOSPITAL: Chest x-ray, which shows stable cardiomegaly without any acute cardiopulmonary abnormality. HISTORY OF PRESENTING ILLNESS: Mr. Dejesus is a 78-year-old male with above-mentioned past medical history, who came to the hospital with some left-sided chest pain. He had some upset stomach last week as well. By the time he drove over to the emergency room, his symptoms have resolved. He was found to be hemodynamically stable in the emergency room with normal EKG and normal cardiac enzymes. Given his history of coronary artery disease, he was admitted overnight to evaluate and rule out ACS. Please see admission history and physical dictated by Dr. Montelongo from the date of admission. HOSPITAL COURSE: The patient remained asymptomatic throughout the rest of his hospitalization. Serial cardiac enzymes were trended and they were negative. Home medications were restarted and Dr. Gann was consulted. Dr. Gann has seen the patient this morning and he is back to his baseline. His chest pain was diagnosed as atypical. No changes were made in the medication. Dr. Gann has cleared him for discharge with outpatient followup. I have seen and examined the patient prior to discharge. Discussed his care with his and patient. He drinks heavily and he has been encouraged very strongly to cut back on his alcohol intake and monitor fluid restriction in long-term. PHYSICAL EXAMINATION: VITAL SIGNS: This morning, vital signs, temperature 98.4, pulse of 73, respirations 18, saturating 96% on room air, blood pressure 106/56. GENERAL: No acute distress. Awake, alert, and oriented x3. CHEST: Clear to auscultation bilaterally. HEART: Rhythm is regular. EXTREMITIES: Free of any cyanosis, clubbing, or edema. He has chronic lower extremity erythema since his coronary artery bypass vein grafting in his legs. It is more pronounced in the red lower extremity and to a certain extent, a small patch in the right lower extremity. The patient reports it is chronic. Job ID: [id number]
== END 2019-01-10 14:17 | disposition home or self-care (01) ==
LOC: ERS 12:28 → 2SW 13:44
PROVIDERS: ADMIT Internal Medicine; ATTEND Internal Medicine
DX: R07.89 Other chest pain (principal); I25.10 Atherosclerotic heart disease of native coronary artery without angina pectoris; I42.9 Cardiomyopathy, unspecified; I48.0 Paroxysmal atrial fibrillation; E78.5 Hyperlipidemia, unspecified; I10 Essential (primary) hypertension; M19.90 Unspecified osteoarthritis, unspecified site; G89.29 Other chronic pain; M54.9 Dorsalgia, unspecified; Z79.02 Long term (current) use of antithrombotics/antiplatelets; Z79.899 Other long term (current) drug therapy; Z88.1 Allergy status to other antibiotic agents; Z88.8 Allergy status to other drugs, medicaments and biological substances; Z95.810 Presence of automatic (implantable) cardiac defibrillator; Z95.1 Presence of aortocoronary bypass graft
CPT/HCPCS: 71045; 80053; 83690; 83880; 84484 ×2; 85025; 93005; 94760 ×2; 96374; 99285; G0378; 36415; J1940

== ENCOUNTER 2019-01-31 09:17 | Outpatient (CLI) | payer MEDICARE ==
--- NOTE | 2019-01-31 10:04 | CT ---
LUMBAR SPINE CT WITHOUT CONTRAST: DATE: 01/31/2019. COMPARISON: None available. HISTORY: Back pain, lumbar spine fracture. TECHNIQUE: Axial CT imaging at 2 mm intervals through the lumbar spine with coronal and sagittal reformatted micheal ging. FINDINGS: The bones are demineralized, limiting assessment for nondisplaced fracture. Evaluation for central canal and/or neural foraminal stenosis is limited on routine CT examination. Partially imaged abdominal aorta is markedly abnormal, demonstrating multifocal atherosclerotic calci fication, marked tortuosity, and evidence of multifocal aneurysmal dilation. Abdominal aorta measures at least 4.8 cm transverse dimension on image 77 and up to 4.4 cm in transverse dimension di stally, consistent with extensive prominent abdominal aortic aneurysm formation. There is a nonspecific sclerotic focus within the anterior aspect of the sacrum on the right measurin g 1.4 cm. This likely represents a benign bone island in the absence of metastatic disease/personal history of malignancy. No significant anterolisthesis or retrolisthesis noted. Anterior wedge compression fracture noted at T12 with approximately 25% loss of vertebral body height anteriorly, likely old. There is an L1 burst fracture with severe anterior loss of vertebral body height, measuring at least 80%. There is a burst fracture of L3 with mild retropulsion, primarily involving the superior endplate, wi th at least 70% loss of vertebral body height centrally. There is a burst fracture of L4 with mild retropulsion, primarily involving the superior endplate, wi th at least 60-70% loss of vertebral body height centrally. No evidence for fracture of L2 or L5 vertebral bodies. T12-L1: There is disc space narrowing and bilateral facet hypertrophy. No osseous cause of significan t central canal or neural foraminal stenosis. L1-2: There is disc space narrowing and vacuum disc formation. Osseous retropulsion associated with L 1 fracture causes mild moderate central canal stenosis. Moderate bilateral neural foraminal stenosis. L2-3: There is disc space narrowing with disc osteophyte complex causing probable moderate central ca nal stenosis. Bilateral facet hypertrophy with moderate bilateral neural foraminal stenosis. L3-4: There is disc space narrowing and vacuum disc formation with bilateral facet hypertrophy. Moder ate/severe bilateral neural foraminal stenosis. Moderate central canal stenosis. L4-5: Prominent facet hypertrophy and hypertrophy of the ligamentum flavum with moderate right and se joni left neural foraminal stenosis. Moderate/severe central canal stenosis suspected. L5-S1: Bilateral facet hypertrophy with moderate bilateral neural foraminal stenosis. IMPRESSION: 1. Severe multilevel degenerative change. Multiple fracture deformities, including T12, L1, L3, and L 4. 2. Extensive abnormalities involving the abdominal aorta including multifocal prominent aneurysmal di latation, incompletely assessed on this exam. CT angiogram of abdomen and pelvis is advised. CODE T Transcribed Date/Time: 01/31/2019 10:36 AM
--- NOTE | 2019-01-31 13:30 | NM ---
Whole body bone scan: 01/31/2019 HISTORY: Compression fractures of the lumbar spine. TECHNIQUE: Anterior and posterior whole-body imaging is obtained following the intravenous administra tion of 33 mCi technetium 99m labeled MDP. FINDINGS: Physiologic activity noted within the region of the kidneys and urinary bladder. There is i ncreased radiotracer activity overlying the maxillary region on the right, presumably on the basis of sinus disease. No pelvic abnormality or long bone abnormality. No calvarial lesion. There are 3 areas of increased horizontal diffuse vertebral body radiotracer activity within the lumb ar spine consistent with the fracture deformities noted on recent CT examination at L1, L3, and L4. There is a focus of increased radiotracer activity within the medial aspect of the left 11th rib, lik miranda on the basis of a rib fracture. There is an area of photopenia in the region of the right knee suggesting arthroplasty. Focus of photopenia also noted overlying the left chest which may be associa cyril with a pacing generator IMPRESSION: There are foci of radiotracer activity within the lumbar spine consistent with fractures of L1, L3, and L4 noted on recent CT. Focus of increased radiotracer activity within the medial aspect of the right 11th rib is likely on the basis of fracture. This could be further assessed via r adiographs or CT. Probable maxillary sinus disease on the right.
== END 2019-01-31 09:18 | disposition home or self-care (01) ==
LOC: CT 09:17
PROVIDERS: ATTEND Nurse Practitioner Family
DX: S32.010A Wedge compression fracture of first lumbar vertebra, initial encounter for closed fracture (principal)
CPT/HCPCS: 72131; 78306; A9503

== ENCOUNTER 2019-07-11 10:57 | Emergency (ER) | payer MEDICARE ==
[2019-07-11 12:00] LABS: #Lymphocytes 0.8 thou/uL (1.20-3.40); #Monocytes 0.5 thou/uL (0.11-0.59); #Neutrophils 3.3 thou/uL (1.40-6.50); %Basophils 0.6 % (0.0-1.0); %Eosinophils 0.9 % (0.0-10.0); %Lymphocytes 16.9 % (21.0-51.0); %Monocytes 10.7 % (0.0-10.0); Hemoglobin 10.8 g/dL (14.0-18.0); Mean Corpuscular HGB CONC 35.6 g/dL (32.0-36.0); Mean Corpuscular Hemoglobin 37.4 pg (27.0-31.0); Mean Platelet Volume 7.1 fL (7.4-10.4); Platelet Count 145 thou/uL (130-400); Red Blood Cell (RBC) Count 2.89 mill/uL (4.70-6.10); White Blood Cell (WBC) Count 4.6 thou/uL (4.8-10.8)
[2019-07-11 12:14] LABS: ALT (SGPT) 18 U/L (8-55); AST (SGOT) 18 U/L (5-34); Albumin 4.3 g/dL (3.4-4.8); Alkaline Phosphatase 57 U/L (40-110); Anion Gap 12 mmol/L (10-20); BUN (Urea Nitrogen) 28 mg/dL (8.4-25.7); Bilirubin, Total 0.7 mg/dL (0.2-1.2); CK (CPK) 30 U/L (30-200); Calc. Creatinine Clearance 0 mL/min (70-130); Calcium 9.6 mg/dL (7.8-10.44); Carbon Dioxide 28 mmol/L (23-31); Chloride 103 mmol/L (98-107); Estimated GFR-MDRD 40; Glucose 110 mg/dL (83-110); Potassium 4.4 mmol/L (3.5-5.1); Protein, Total 6.3 g/dL (5.8-8.1); Sodium 139 mmol/L (136-145)
--- NOTE | 2019-07-11 14:42 | RAD ---
UPRIGHT PORTABLE CHEST 1 VIEW: Date: 07/11/19 HISTORY: Syncope. COMPARISON: 01/09/19. FINDINGS: Minimal cardiomegaly. Postop midline sternotomy. Left ICD. No confluent pneumonia, overt edema, or pl eural effusion. IMPRESSION: Stable chest. Atherosclerosis of aorta. No significant new process. POS: [facility]
== END 2019-07-11 14:26 | disposition home or self-care (01) ==
LOC: ERS 10:57
DX: R42 Dizziness and giddiness (principal); I25.2 Old myocardial infarction; I11.0 Hypertensive heart disease with heart failure; I50.9 Heart failure, unspecified; E78.5 Hyperlipidemia, unspecified; I48.91 Unspecified atrial fibrillation; Z87.891 Personal history of nicotine dependence; Z79.899 Other long term (current) drug therapy
CPT/HCPCS: 36415; 71045; 80053; 82550; 84484; 85025; 93005; 94760

== ENCOUNTER 2019-07-11 21:08 | Inpatient (IN) | payer MEDICARE ==
[2019-07-11 21:38] LABS: #Lymphocytes 0.8 thou/uL (1.20-3.40); #Monocytes 0.6 thou/uL (0.11-0.59); #Neutrophils 4.9 thou/uL (1.40-6.50); %Basophils 0.2 % (0.0-1.0); %Eosinophils 0.5 % (0.0-10.0); %Lymphocytes 13.1 % (21.0-51.0); %Monocytes 9.6 % (0.0-10.0); %Neutrophils 76.7 % (42.0-75.0); Hemoglobin 11.3 g/dL (14.0-18.0); Mean Corpuscular HGB CONC 34.4 g/dL (32.0-36.0); Mean Corpuscular Hemoglobin 36.4 pg (27.0-31.0); Mean Platelet Volume 7.2 fL (7.4-10.4); Platelet Count 177 thou/uL (130-400); RBC Distribution Width 13.2 % (11.5-14.5); White Blood Cell (WBC) Count 6.3 thou/uL (4.8-10.8)
--- NOTE | 2019-07-11 21:40 | RAD ---
"PRELIMINARY REPORT" FRONTAL VIEW CHEST: Comparison: Earlier same day CLINICAL HISTORY: Defibrillator activation FINDINGS: Cardiomediastinal silhouette is stable appearing. Left-sided AICD remains in place. Bilateral perihil ar vascular congestion noted. Pleural-based density is present at the left lower hemithorax obscuring left lateral costophrenic sulcus. Para impression bilateral vascular congestion and left pl eural effusion. Transcribed Date/Time: 07/11/2019 9:46 PM
[2019-07-11 21:55] LABS: ALT (SGPT) 21 U/L (8-55); AST (SGOT) 21 U/L (5-34); Albumin 4.5 g/dL (3.4-4.8); Alkaline Phosphatase 63 U/L (40-110); Anion Gap 12 mmol/L (10-20); BUN (Urea Nitrogen) 28 mg/dL (8.4-25.7); Bilirubin, Total 0.8 mg/dL (0.2-1.2); Calc. Creatinine Clearance 0 mL/min (70-130); Calcium 9.7 mg/dL (7.8-10.44); Carbon Dioxide 27 mmol/L (23-31); Chloride 104 mmol/L (98-107); Estimated GFR-MDRD 41; Globulin 2.4 g/dL (2.4-3.5); Glucose 86 mg/dL (83-110); Potassium 4.2 mmol/L (3.5-5.1); Protein, Total 6.9 g/dL (5.8-8.1); Sodium 139 mmol/L (136-145)
[2019-07-11] MEDS ORDERED: Aspirin Chewable 81 MG TAB ONE (22:52)
[2019-07-11] MEDS ORDERED: Amiodarone 200 MG TAB PO SCH (23:00)
--- NOTE | 2019-07-11 23:19 | PDOC.EVN ---
Event Note - Event Note Event Note: [id number] HP
--- NOTE | 2019-07-11 23:51 | HP ---
CHIEF COMPLAINT: AICD shocked him. HISTORY OF PRESENT ILLNESS: Mr. Dejesus is a 79-year-old male, who presents after AICD shocked him at home around 7 p.m. The patient reported that he had a near syncopal episode while sitting, then 4 minutes later, the AICD shocked him. The patient was earlier seen today for syncopal episode in the emergency room. Currently, he denies any chest pain, palpitations, or shortness of breath. An interrogation was done and the patient was found to have V-tach. PAST MEDICAL HISTORY: 1. Coronary artery disease. 2. Congestive heart failure. 3. Myocardial infarction. 4. Atrial fibrillation. 5. AICD. 6. Hyperlipidemia. 7. Hypertension. 8. Osteoarthritis. 9. Chronic back pain. 10. Scoliosis. PAST SURGICAL HISTORY: 1. Knee surgery. 2. Coronary artery bypass graft surgery x4, status post cardiac arrest. 3. Hernia repair x3. 4. Four ablations. SOCIAL HISTORY: Drinks less than 5 drinks per day. He is a former smoker. FAMILY HISTORY: Reviewed and noncontributory. HOME MEDICATIONS: Please see home medication reconciliation form for updated medications. ALLERGIES: HE IS ALLERGIC TO CEPHALOSPORINS AND METHOCARBAMOL. REVIEW OF SYSTEMS: Review of 14 systems negative except what is mentioned in the history of present illness. PHYSICAL EXAMINATION: GENERAL: The patient is awake, alert, does not appear to be in acute distress. VITAL SIGNS: Blood pressure 118/55, pulse is 86, respiratory rate is 17, pulse oximetry 99% on room air, temperature 97.9. HEAD AND NECK: Normocephalic, atraumatic. NECK: Supple. No JVD. CHEST: Fair bilateral air entry. HEART: S1, S2. Regular. ABDOMEN: Soft, nontender. Bowel sounds present. NEUROLOGIC: Awake, alert, oriented x3. PSYCHIATRIC: Normal mood. EXTREMITIES: No clubbing or cyanosis. LABORATORY DATA: BUN is 28, creatinine 1.6, hemoglobin 11.3. Troponin 0.027. EKG showed AV dual paced rhythm. No ST changes. ASSESSMENT: 1. Status post ventricular tachycardia. 2. Syncope. 3. Coronary artery disease. 4. Chronic kidney disease. 5. Congestive heart failure. 6. History of myocardial infarction. 7. Hyperlipidemia. 8. Hypertension. PLAN: 1. Admit. 2. Telemetry monitoring. 3. Serial cardiac enzymes. 4. Consult the patient's sliver lap tender for evaluation and further management. 5. Reconcile home medications. 6. Deep venous thrombosis prophylaxis as appropriate. 7. Expected length of stay at least 1 midnight if the patient is stable and further workup negative. Job ID: [id number]
[2019-07-12 01:07] LABS: Troponin I Less than 0.010 ng/mL (< 0.028)
[2019-07-12 01:25] VITALS: BMI 28.0
[2019-07-12 03:56] LABS: Troponin I Less than 0.010 ng/mL (< 0.028)
[2019-07-12] MEDS: Aspirin 325 mg Enteric Coated Tablet PO SCH (08:25)
[2019-07-12] MEDS: Amiodarone 200 MG TAB PO SCH ×2 (10:54→20:02)
[2019-07-12 11:43] LABS: Anion Gap 10 mmol/L (10-20); BUN (Urea Nitrogen) 21 mg/dL (8.4-25.7); Calc. Creatinine Clearance 59 mL/min (70-130); Calcium 9.4 mg/dL (7.8-10.44); Carbon Dioxide 28 mmol/L (23-31); Chloride 104 mmol/L (98-107); Estimated GFR-MDRD 53; Glucose 100 mg/dL (83-110); Magnesium 1.9 mg/dL (1.6-2.6); Potassium 4.4 mmol/L (3.5-5.1); Sodium 138 mmol/L (136-145)
[2019-07-12] MEDS ORDERED: Artificial Tears 18 DROP/0.9 ML EA EYE PRN (13:06)
--- NOTE | 2019-07-12 18:13 | CON ---
DATE OF CONSULTATION: 07/12/2019 HISTORY OF PRESENT ILLNESS: I am seeing Mr. 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 His problems are: 1. Recurrent ventricular tachycardia with ATP and an ICD shock. a. History of recurrent ventricular tachycardia with a reasonable suppression with ATP and initially sotalol. 2. History of atrial arrhythmias. a. Atrial flutter ablation in 2005. b. Pulmonary venous isolation in 2011. c. AV narciso reentrant tachycardia, slow pathway modification. 3. Chronic systolic congestive heart failure with ischemic cardiomyopathy. a. Prior stent in March 2015. b. History of CABG in the past. 4. Status post dual-chamber ICD implant, post Bi-V upgrade on 07/03/2019, with a Medtronic Viva Quad device. ALLERGIES: 1. CEPHALEXIN. 2. METHOCARBAMOL. MEDICATIONS: At home included: 1. Methotrexate. 2. Folic acid. 3. Lipitor. 4. Clopidogrel. 5. Spironolactone. 6. Amiodarone 100 mg a day. 7. Hydrocodone. 8. Levothyroxine. 9. Ferrous sulfate. 10. Torsemide. 11. Sacubitril calcium. 12. Bacillus coagulans. 13. Turmeric. 14. Cholecalciferol. 15. Multivitamin. 16. Memantine/Namenda. SUBJECTIVE: Mr. Dejesus is here due to an ICD shock. He went to the ER with palpitations, eventually received a defibrillator shock around 7 p.m. ICD was interrogated, found indeed to have an adequate detection and attempted pace termination with eventual shock termination of device. He did have a syncopal spell with that. He has no PND or orthopnea. No signs of angina. No fever, chills, or cough. No stroke-like symptoms. No neurological deficits. No bleeding issues are noted. Rest of 12-point systems is unremarkable. PAST MEDICAL HISTORY: As above. Also, includes hyperlipidemia, hypertension, osteoarthritis, chronic back pain, and scoliosis. PAST SURGICAL HISTORY: Significant for knee surgery, bypass grafting surgery x4 vessels, hernia repair x3, and 4 prior ablations as above. SOCIAL HISTORY: The patient drinks normally. Denies smoking, EtOH, or drug abuse. FAMILY HISTORY: Not contributory. OBJECTIVE DATA: VITAL SIGNS: Blood pressure is 155, heart rate 72, respirations 16, temperature 97.6 degrees Fahrenheit. GENERAL: Alert and oriented man, in no apparent distress. NECK: Supple. Jugular veins are not distended. CHEST: Coarse without crackles. HEART: Sounds are regular to rate and rhythm. No murmur or gallop. ABDOMEN: Benign. Bowel sounds positive. EXTREMITIES: Lower extremities without edema, clubbing, or cyanosis. Pulses are adequate. Skin discoloration of lower extremity heath is noted on both legs. NEUROLOGIC: The patient is nonfocal. MUSCULOSKELETAL: No joint swelling or deformity. SKIN: Without rash. Precordial ICD insertion site is well healed. DATABASE: ICD interrogation reviewed revealing a Medtronic Viva Quad [employer]-D device with longevity 3.2 years. Lead parameters are adequate with sensing 1.3 and 7.9 mV respectively. LV threshold is 1.625 V at 0.8 milliseconds. The fast VT zone noted VT zone at 3 episodes, 16 nonsustained episodes are seen. 1/6 shock termination and 5/6 ATP pace termination are seen since last check in April. Interrogation of the actual events revealed true ventricular tachycardia with clear VA dissociation with cycle lengths up to 290 milliseconds with intermittent success of ATP therapies seen. The EKG on admit shows atrioventricular paced rhythm. The QTc is 510 milliseconds. LABORATORY DATA: White cell count 6.3, hemoglobin 11.3, platelet count is 177. Sodium 138, potassium 4.4, BUN 21, creatinine 1.3. The troponin levels 0.01 x 2. The chest x-ray shows cardiomegaly, pleural-based density, bilateral vascular congestion, and left pleural effusion. ASSESSMENT AND PLAN: Mr. Dejesus is a pleasant 79-year-old man with prior history of congestive heart failure, ischemic cardiomyopathy, reduced left ventricular ejection fraction on last echo, LVEF is at 20% to 25. Previously maintained on sotalol. More recently changed to amiodarone at a low-dose. Now, had a flare-up of his ventricular tachycardia episodes. At this point, I do not see the exact reason for his exacerbation, possibly mild fluid overload is either a possibility, although on clinical exam, it is not very impressive. Optimal measurements also at baseline. He has been in the past suppressed with very low-dose amiodarone. I agree with the increase on the amiodarone for 400 twice a day. IV loading is a consideration if further ventricular tachycardia episodes continue. Monitor QT interval and proarrhythmia. I defer the assessment of need for ischemic evaluation to Dr. Gann's opinion. Future options could also include ventricular tachycardia ablation, although advanced age may put him at some risk of this procedure, but definite consideration if the ventricular tachycardia episode do not sufficiently suppressed with the current regimen. Bi-V ICD otherwise with adequate function. Continue routine monitoring. Heart failure therapy as per Dr. Gann. Thank you again for allowing me to participate in care this patient. Job ID: [id number] [facility]
[2019-07-12] MEDS ORDERED: Potassium Chloride 20 MEQ TAB PO SCH (18:45)
[2019-07-12] MEDS ORDERED: Furosemide 40 MG/4 ML VIAL SLOW IVP SCH (18:45)
[2019-07-12] MEDS: Torsemide 20 MG TAB PO SCH (20:01)
[2019-07-12] MEDS: Folic Acid 1 MG TAB PO SCH (20:02)
[2019-07-12] MEDS: Atorvastatin Calcium 40 MG TAB PO SCH (20:04)
[2019-07-12] MEDS: Ferrous Sulfate 325 MG TAB PO SCH (20:04)
[2019-07-12] MEDS ORDERED: Sacubitril 49 MG/Valsartan 51 MG TABLET PO SCH (21:00)
[2019-07-13] MEDS: Multivit, Therapeutic 1 TAB PO SCH (08:16)
[2019-07-13] MEDS: Spironolactone 25 MG TAB PO SCH (08:16)
[2019-07-13] MEDS: Folic Acid 1 MG TAB PO SCH ×2 (08:17→19:55)
[2019-07-13] MEDS: Aspirin 325 mg Enteric Coated Tablet PO SCH (08:17)
[2019-07-13] MEDS: Clopidogrel Bisulfate 75 MG TAB PO SCH (08:17)
[2019-07-13] MEDS: Ferrous Sulfate 325 MG TAB PO SCH ×2 (08:17→19:56)
[2019-07-13] MEDS: Levothyroxine Sodium 50 MCG TAB PO SCH (08:17)
[2019-07-13] MEDS: Torsemide 20 MG TAB PO SCH ×2 (08:18→19:55)
[2019-07-13] MEDS: Sacubitril 49 MG/Valsartan 51 MG TABLET PO SCH ×2 (08:50→19:55)
[2019-07-13] MEDS ORDERED: Amiodarone 200 MG TAB PO SCH (09:00)
--- NOTE | 2019-07-13 09:20 | PRG ---
DATE OF SERVICE: 07/13/2019 SUBJECTIVE: Mr. Dejesus is doing well today. He had a good diuresis with intravenous Lasix last night. Only a liter of output is recorded, but he said "I was up all night urinating." I suspect he would diurese more. He has no chest pain or pressure. OBJECTIVE: VITAL SIGNS: His blood pressure 116/64, he was 93/55 earlier, pulse 72. LUNGS: Clear. CARDIAC: Normal S1, normal S2. ABDOMEN: Soft, nontender. EXTREMITIES: Mild edema on the left. Minimal edema in the right lower extremity. ASSESSMENT: 1. Ventricular tachycardia prompting defibrillator discharge. 2. Did have a monomorphic episode of ventricular tachycardia yesterday with very rapid rate of 217 beats yesterday afternoon. 3. Coronary artery disease with previous bypass surgery, redo bypass done 09/16/2015. PLAN: 1. Increase amiodarone. 2. Continue heart failure medicines. 3. At this point, I have not recommended a repeat cardiac catheterization. It is not clear to me what else could be really done to revascularize. The patient has already had repeat bypass surgery. He has distal atherosclerosis. We will increase amiodarone and treat medically at this time. Job ID: [id number]
--- NOTE | 2019-07-13 11:15 | PDOC.CPN ---
- Subjective Date: 07/13/19 (EP FOLLOW UP NOTE) Time: 11:13 Interval history: history of VT suppressed with low dose amiodarone. Recurrence of VT resulting in shocks from AICD. Presented to ER for evaluation. Feels well this AM. no recurrent VT overnight. No compliants this AM - Review of Systems General: denies: fever/chills, weight/appetite/sleep changes, night sweats, fatigue Respiratory: denies: cough, congestion, shortness of breath, exercise intolerance Cardiovascular: denies: chest pain, palpitation, edema, paroxysmal nocturnal dyspnea, orthopnea Gastrointestinal: denies: nausea, vomiting, diarrhea, constipation, abd pain, GI bleeding Musculoskeletal: denies: pain, tenderness, stiffness, swelling, arthritis/ arthralgias Neurological: denies: numbness, syncope, seizure, weakness - Objective Allergies/Adverse Reactions: Allergies Allergy/AdvReac Type Severity Reaction Status Date / Time cephalexin Allergy Verified 01/09/19 19:09 methocarbamol Allergy Verified 01/09/19 19:09 Visit Medications: Current Medications Amiodarone HCl (Cordarone) 400 mg PO TID [facility] Last Admin: 07/13/19 08:17 Dose: 400 mg Artificial Tears (Tears Naturale) 1 drop EA EYE QIDPRN PRN PRN Reason: . Last Admin: 07/12/19 18:02 Dose: 1 drop Aspirin (Ecotrin) 325 mg PO DAILY [facility] Last Admin: 07/13/19 08:17 Dose: 325 mg Atorvastatin Calcium (Lipitor) 40 mg PO QPM [facility] Last Admin: 07/12/19 20:04 Dose: 40 mg Cholecalciferol (Vitamin D3) 2,000 units PO DAILY [facility] Last Admin: 07/13/19 08:16 Dose: 2,000 units Clopidogrel Bisulfate (Plavix) 75 mg PO DAILY [facility] Last Admin: 07/13/19 08:17 Dose: 75 mg Ferrous Sulfate (Feosol) 325 mg PO BID [facility] Last Admin: 07/13/19 08:17 Dose: 325 mg Folic Acid (Folvite) 4 mg PO BID [facility] Last Admin: 07/13/19 08:17 Dose: 4 mg Levothyroxine Sodium (Synthroid) 100 mcg PO DAILY [facility] Last Admin: 07/13/19 08:17 Dose: 100 mcg Memantine (Namenda) 5 mg PO BID [facility] Last Admin: 07/13/19 08:17 Dose: 5 mg Multivitamins (Theragran) 1 tab PO DAILY [facility] Last Admin: 07/13/19 08:16 Dose: 1 tab Sacubitril/Valsartan (Entresto 49 Mg-51 Mg Tablet) 1 tab PO BID [facility] Last Admin: 07/13/19 08:50 Dose: 1 tab Spironolactone (Aldactone) 25 mg PO DAILY [facility] Last Admin: 07/13/19 08:16 Dose: 25 mg Torsemide (Demadex) 20 mg PO BID [facility] Last Admin: 07/13/19 08:18 Dose: 20 mg Vital Signs & Weight: Vital Signs Temp Pulse Resp BP BP Pulse Ox 07/13/19 07:31 98.1 F 72 18 116/64 100 07/13/19 04:00 97.8 F 80 18 93/55 L 100 07/12/19 23:30 71 102/55 L Weight 199 lb 5 oz - Physical Exam General: alert & oriented x3, appears well, no apparent distress HEENT: mucus membranes moist, normocephaly Neck: supple neck, midline trachea, no JVD/HJR, no masses, no bruit, no lymphadenopathy, no thromegaly Cardiac: regular rate and rhythm, no murmur, regular rate, regular rhythm Lungs: clear to auscultation, normal breath sounds, normal exam, no wheeze, rales, rhonchi Neuro: grossly intact Abdomen: unremarkable - Labs Result Diagrams: 07/11/19 21:26 07/12/19 11:04 Troponin/CKMB Troponin I Less than 0.010 ng/mL (< 0.028) 07/12/19 03:09 - Telemetry Sinus rhythms and dysrhythmias: sinus rhythm - Assessment/Plan Assessment/Plan: 1. Recurrent ventricular tachycardia with ICD shocks. a. History of ventricular tachycardia with a reasonable suppression with ATP and initially sotalol then low dose amiodarone 2. Bi-V ICD 07/03/2019, Medtronic Viva Quad device. Device functioning normally 3. Chronic amiodarone therapy to suppress VT Recurrent VT, low suspicion for ischemia. K and Mg levels WNL. Increasing amiodarone for improved VT suppression. Recommend 20mg PO TID x 7 days, 200mg BID x7 days, then 200mg daily thereafter.
[2019-07-13] MEDS: Amiodarone 200 MG TAB PO SCH ×2 (16:51→19:57)
[2019-07-13] MEDS: Atorvastatin Calcium 40 MG TAB PO SCH (19:56)
--- NOTE | 2019-07-14 09:25 | PDOC.HOSPP ---
- Subjective Encounter Date: 07/13/19 Encounter Time: 10:30 Subjective: pt up in bed no complains. He did have some v tach last night - Objective Vital Signs & Weight: Vital Signs (12 hours) Temp Pulse Resp BP Pulse Ox 07/14/19 08:00 98 07/14/19 07:42 98.1 F 69 18 92/54 L 96 07/14/19 03:32 98.0 F 78 14 86/54 L 95 Weight Weight 198 lb 11.2 oz I&O: 07/13/19 07/14/19 07/15/19 06:59 06:59 06:59 Intake Total 1200 1060 Output Total 1040 Balance 160 1060 Result Diagrams: 07/11/19 21:26 07/12/19 11:04 Hospitalist ROS - Review of Systems Respiratory: denies: cough, dry, shortness of breath, hemoptysis, SOB with excertion, pleuritic pain, sputum, wheezing, other Cardiovascular: denies: chest pain, palpitations, orthopnea, paroxysmal noc. dyspnea, edema, light headedness, other Gastrointestinal: denies: nausea, vomiting, abdominal pain, diarrhea, constipation, melena, hematochezia, other - Medication Medications: Active Medications Generic Name Dose Route Start Last Admin Trade Name Freq PRN Reason Stop Dose Admin Amiodarone HCl 200 mg 07/13/19 17:00 07/13/19 19:57 Cordarone PO 200 mg TID THADDEUS Administration Artificial Tears 1 drop 07/12/19 13:06 07/12/19 18:02 Tears Naturale EA EYE 1 drop QIDPRN PRN Administration . Aspirin 325 mg 07/12/19 09:00 07/13/19 08:17 Ecotrin PO 325 mg DAILY THADDEUS Administration Atorvastatin Calcium 40 mg 07/12/19 21:00 07/13/19 19:56 Lipitor PO 40 mg QPM THADDEUS Administration Cholecalciferol 2,000 units 07/13/19 09:00 07/13/19 08:16 Vitamin D3 PO 2,000 units DAILY THADDEUS Administration Clopidogrel Bisulfate 75 mg 07/13/19 09:00 07/13/19 08:17 Plavix PO 75 mg DAILY THADDEUS Administration Ferrous Sulfate 325 mg 07/12/19 21:00 07/13/19 19:56 Feosol PO 325 mg BID THADDEUS Administration Folic Acid 4 mg 07/12/19 21:00 07/13/19 19:55 Folvite PO 4 mg BID THADDEUS Administration Levothyroxine Sodium 100 mcg 07/13/19 09:00 07/13/19 08:17 Synthroid PO 100 mcg DAILY THADDEUS Administration Memantine 5 mg 07/12/19 21:00 07/13/19 19:55 Namenda PO 5 mg BID THADDEUS Administration Multivitamins 1 tab 07/13/19 09:00 07/13/19 08:16 Theragran PO 1 tab DAILY THADDEUS Administration Sacubitril/Valsartan 1 tab 07/13/19 09:00 07/13/19 19:55 Entresto 49 Mg-51 Mg Tablet PO 1 tab BID THADDEUS Administration Spironolactone 25 mg 07/13/19 09:00 07/13/19 08:16 Aldactone PO 25 mg DAILY THADDEUS Administration Torsemide 20 mg 07/12/19 21:00 07/13/19 19:55 Demadex PO 20 mg BID THADDEUS Administration - Exam ENT: negative: normocephalic atraumatic, no oropharyngeal lesions, moist mucosa , dry oral mucosa Neck: negative: supple, symmetric, no JVD, no thyromegaly, no lymphadenopathy, no carotid bruit, JVD Heart: negative: RRR, no murmur, no gallops, no rubs, normal peripheral pulses, irregular, diminshed peripheral pulses, murmur present, II/IV, III/IV Respiratory: negative: CTAB, no wheezes, no rales, no ronchi, normal chest expansion, no tachypnea, normal percussion, rales, rhonchi, tachypneic, wheezes Hosp A/P (1) V tach Code(s): I47.2 - VENTRICULAR TACHYCARDIA Status: Acute (2) CAD (coronary artery disease), [place] coronary artery Code(s): I25.10 - ATHSCL HEART DISEASE OF [place] CORONARY ARTERY W/O ANG PCTRS Status: Chronic (3) HLD (hyperlipidemia) Code(s): E78.5 - HYPERLIPIDEMIA, UNSPECIFIED Status: Chronic (4) Hypertension Code(s): I10 - ESSENTIAL (PRIMARY) HYPERTENSION Status: Chronic - Plan pt on higher dose of amio. EP to see pt. discharge when ok with cardio
--- NOTE | 2019-07-14 09:27 | PDOC.HOSPP ---
- Subjective Encounter Date: 07/12/19 Encounter Time: 11:30 Subjective: pt up in bed no complains - Objective Vital Signs & Weight: Vital Signs (12 hours) Temp Pulse Resp BP Pulse Ox 07/14/19 08:00 98 07/14/19 07:42 98.1 F 69 18 92/54 L 96 07/14/19 03:32 98.0 F 78 14 86/54 L 95 Weight Weight 198 lb 11.2 oz I&O: 07/13/19 07/14/19 07/15/19 06:59 06:59 06:59 Intake Total 1200 1060 Output Total 1040 Balance 160 1060 Result Diagrams: 07/11/19 21:26 07/12/19 11:04 Hospitalist ROS - Review of Systems Respiratory: denies: cough, dry, shortness of breath, hemoptysis, SOB with excertion, pleuritic pain, sputum, wheezing, other Cardiovascular: denies: chest pain, palpitations, orthopnea, paroxysmal noc. dyspnea, edema, light headedness, other Gastrointestinal: denies: nausea, vomiting, abdominal pain, diarrhea, constipation, melena, hematochezia, other - Medication Medications: Active Medications Generic Name Dose Route Start Last Admin Trade Name Freq PRN Reason Stop Dose Admin Amiodarone HCl 200 mg 07/13/19 17:00 07/13/19 19:57 Cordarone PO 200 mg TID THADDEUS Administration Artificial Tears 1 drop 07/12/19 13:06 07/12/19 18:02 Tears Naturale EA EYE 1 drop QIDPRN PRN Administration . Aspirin 325 mg 07/12/19 09:00 07/13/19 08:17 Ecotrin PO 325 mg DAILY THADDEUS Administration Atorvastatin Calcium 40 mg 07/12/19 21:00 07/13/19 19:56 Lipitor PO 40 mg QPM THADDEUS Administration Cholecalciferol 2,000 units 07/13/19 09:00 07/13/19 08:16 Vitamin D3 PO 2,000 units DAILY THADDEUS Administration Clopidogrel Bisulfate 75 mg 07/13/19 09:00 07/13/19 08:17 Plavix PO 75 mg DAILY THADDEUS Administration Ferrous Sulfate 325 mg 07/12/19 21:00 07/13/19 19:56 Feosol PO 325 mg BID THADDEUS Administration Folic Acid 4 mg 07/12/19 21:00 07/13/19 19:55 Folvite PO 4 mg BID THADDEUS Administration Levothyroxine Sodium 100 mcg 07/13/19 09:00 07/13/19 08:17 Synthroid PO 100 mcg DAILY THADDEUS Administration Memantine 5 mg 07/12/19 21:00 07/13/19 19:55 Namenda PO 5 mg BID THADDEUS Administration Multivitamins 1 tab 07/13/19 09:00 07/13/19 08:16 Theragran PO 1 tab DAILY THADDEUS Administration Sacubitril/Valsartan 1 tab 07/13/19 09:00 07/13/19 19:55 Entresto 49 Mg-51 Mg Tablet PO 1 tab BID THADDEUS Administration Spironolactone 25 mg 07/13/19 09:00 07/13/19 08:16 Aldactone PO 25 mg DAILY THADDEUS Administration Torsemide 20 mg 07/12/19 21:00 07/13/19 19:55 Demadex PO 20 mg BID THADDEUS Administration - Exam Neck: negative: supple, symmetric, no JVD, no thyromegaly, no lymphadenopathy, no carotid bruit, JVD Heart: negative: RRR, no murmur, no gallops, no rubs, normal peripheral pulses, irregular, diminshed peripheral pulses, murmur present, II/IV, III/IV Respiratory: negative: CTAB, no wheezes, no rales, no ronchi, normal chest expansion, no tachypnea, normal percussion, rales, rhonchi, tachypneic, wheezes Hosp A/P (1) V tach Code(s): I47.2 - VENTRICULAR TACHYCARDIA Status: Acute (2) CAD (coronary artery disease), [place] coronary artery Code(s): I25.10 - ATHSCL HEART DISEASE OF [place] CORONARY ARTERY W/O ANG PCTRS Status: Chronic (3) HLD (hyperlipidemia) Code(s): E78.5 - HYPERLIPIDEMIA, UNSPECIFIED Status: Chronic (4) Hypertension Code(s): I10 - ESSENTIAL (PRIMARY) HYPERTENSION Status: Chronic - Plan 07/12 pt up in bed no complains, will check electrolytes. cardio to see pt. 07/13pt on higher dose of amio. EP to see pt. discharge when ok with cardio
[2019-07-14] MEDS: Amiodarone 200 MG TAB PO SCH ×2 (09:31→15:16)
[2019-07-14] MEDS: Aspirin 325 mg Enteric Coated Tablet PO SCH (09:31)
[2019-07-14] MEDS: Clopidogrel Bisulfate 75 MG TAB PO SCH (09:32)
[2019-07-14] MEDS: Levothyroxine Sodium 50 MCG TAB PO SCH (09:33)
[2019-07-14] MEDS: Folic Acid 1 MG TAB PO SCH (09:33)
[2019-07-14] MEDS: Ferrous Sulfate 325 MG TAB PO SCH (09:33)
[2019-07-14] MEDS: Multivit, Therapeutic 1 TAB PO SCH (09:34)
[2019-07-14] MEDS: Sacubitril 49 MG/Valsartan 51 MG TABLET PO SCH (09:35)
[2019-07-14] MEDS: Spironolactone 25 MG TAB PO SCH (09:35)
[2019-07-14] MEDS: Torsemide 20 MG TAB PO SCH (09:35)
--- NOTE | 2019-07-14 14:05 | PRG ---
DATE OF SERVICE: 07/14/2019 SUBJECTIVE: Mr. Dejesus is doing well. No complaints. OBJECTIVE: VITAL SIGNS: Blood pressure 92/53, pulse 70. LUNGS: Clear. CARDIAC: Normal S1. Normal S2. ASSESSMENT: 1. Congestive heart failure, systolic, chronic, stable. 2. Ventricular tachycardia, suppressed on amiodarone. 3. Previous defibrillator. PLAN: Okay to go home. The only change in the medicine amiodarone 200 mg 3 times a day for 1 week, then 200 mg twice a day for 2 weeks, then 200 mg once a day. Job ID: [id number]
--- NOTE | 2019-07-14 14:07 | PDOC.CPN ---
- Subjective Date: 07/14/19 Time: 08:00 Interval history: EP PROGRESS NOTE: history of VT suppressed with low dose amiodarone. Recurrence of VT resulting in shocks from AICD. Presented to ER for evaluation. Feels well this AM. no recurrent VT overnight. No compliants this AM - Review of Systems General: denies: fever/chills, weight/appetite/sleep changes, night sweats, fatigue Cardiovascular: denies: chest pain, palpitation, edema, paroxysmal nocturnal dyspnea, orthopnea Gastrointestinal: denies: nausea, vomiting, diarrhea, constipation, abd pain, GI bleeding - Objective Allergies/Adverse Reactions: Allergies Allergy/AdvReac Type Severity Reaction Status Date / Time cephalexin Allergy Verified 01/09/19 19:09 methocarbamol Allergy Verified 01/09/19 19:09 Visit Medications: Current Medications Amiodarone HCl (Cordarone) 200 mg PO TID [facility] Last Admin: 07/14/19 09:31 Dose: 200 mg Artificial Tears (Tears Naturale) 1 drop EA EYE QIDPRN PRN PRN Reason: . Last Admin: 07/12/19 18:02 Dose: 1 drop Aspirin (Ecotrin) 325 mg PO DAILY [facility] Last Admin: 07/14/19 09:31 Dose: 325 mg Atorvastatin Calcium (Lipitor) 40 mg PO QPM [facility] Last Admin: 07/13/19 19:56 Dose: 40 mg Cholecalciferol (Vitamin D3) 2,000 units PO DAILY [facility] Last Admin: 07/14/19 09:31 Dose: 2,000 units Clopidogrel Bisulfate (Plavix) 75 mg PO DAILY [facility] Last Admin: 07/14/19 09:32 Dose: 75 mg Ferrous Sulfate (Feosol) 325 mg PO BID [facility] Last Admin: 07/14/19 09:33 Dose: 325 mg Folic Acid (Folvite) 4 mg PO BID [facility] Last Admin: 07/14/19 09:33 Dose: 4 mg Levothyroxine Sodium (Synthroid) 100 mcg PO 0600 [facility] Memantine (Namenda) 5 mg PO BID [facility] Last Admin: 07/14/19 09:34 Dose: 5 mg Multivitamins (Theragran) 1 tab PO DAILY [facility] Last Admin: 07/14/19 09:34 Dose: 1 tab Sacubitril/Valsartan (Entresto 49 Mg-51 Mg Tablet) 1 tab PO BID [facility] Last Admin: 10/17/19 09:35 Dose: 1 tab Spironolactone (Aldactone) 25 mg PO DAILY [facility] Last Admin: 07/14/19 09:35 Dose: 25 mg Torsemide (Demadex) 20 mg PO BID [facility] Last Admin: 07/14/19 09:35 Dose: 20 mg Vital Signs & Weight: Vital Signs Temp Pulse Resp BP Pulse Ox 07/14/19 11:56 98.5 F 72 18 92/53 L 96 07/14/19 11:21 98.5 F 72 92/23 L 96 07/14/19 08:00 98 07/14/19 07:42 98.1 F 69 18 92/54 L 96 07/14/19 03:32 98.0 F 78 14 86/54 L 95 Weight 198 lb 11.2 oz - Physical Exam General: alert & oriented x3, appears well, no apparent distress HEENT: mucus membranes moist, normocephaly Neck: supple neck, midline trachea, no JVD/HJR, no masses, no bruit, no lymphadenopathy, no thromegaly Cardiac: regular rate and rhythm Lungs: normal breath sounds Neuro: grossly intact Abdomen: unremarkable - Labs Result Diagrams: 07/11/19 21:26 07/12/19 11:04 Troponin/CKMB Troponin I Less than 0.010 ng/mL (< 0.028) 07/12/19 03:09 - Telemetry Sinus rhythms and dysrhythmias: sinus rhythm - Assessment/Plan Assessment/Plan: 1. Recurrent ventricular tachycardia with ICD shocks. a. History of ventricular tachycardia with a reasonable suppression with ATP and initially sotalol then low dose amiodarone 2. Bi-V ICD 07/03/2019, [employer] Viva Quad device. Device functioning normally 3. Chronic amiodarone therapy to suppress VT Recurrent VT, low suspicion for ischemia. K and Mg levels WNL. Increasing amiodarone for improved VT suppression. Recommend 20mg PO TID x 7 days, 200mg BID x7 days, then 200mg daily thereafter. OK for DC by EP. follow up appt scheduled and DC instructions entered in DC planning
[2019-07-14 14:58] VITALS: BP 90/53; TEMP 97.7
[2019-07-15] MEDS ORDERED: Levothyroxine Sodium 100 MCG TAB PO SCH (06:00)
--- NOTE | 2019-07-15 14:57 | DIS ---
DATE OF ADMISSION: 07/11/2019 DATE OF DISCHARGE: 07/14/2019 DISCHARGE DIAGNOSES: 1. Ventricular tachycardia, status post AICD firing. 2. Coronary artery disease. 3. Hyperlipidemia. 4. Hypertension. HOSPITAL COURSE: The patient is a 79-year-old male who initially presented to the hospital with syncope and dizziness; however, he was discharged home from the ER. However, when he went home, he had recurrent syncope and dizziness and at this time, his AICD fired, so he came into the ER for further evaluation. The patient's AICD was interrogated and he had about 16 to 17 beats of ventricular tachycardia and his AICD did fire. At this time, he was seen by Cardiology and Electrophysiology and his amiodarone antiarrhythmic was increased and he was observed over 24 hours. He had no events and at this time, he was safe to be discharged by Cardiology and by Electrophysiology. Per EP's note, his recurrent VT is low suspicion for ischemia. His potassium and magnesium levels were within normal limits. Again, amiodarone dose was increased to suppress the VT. His home dose will be 200 mg t.i.d. for 7 days and then 200 mg b.i.d. for 7 days and then 200 mg daily after. He will follow with EP and also with Cardiology. DISCHARGE MEDICATIONS: I did write a hand script for the last two doses of his amiodarone, the first two I did prescribe him in the computer. He is also going to continue his Entresto one tablet daily. Spironolactone, I decreased the dose to 12.5 daily due to his low blood pressure. Atorvastatin 40 mg daily. He is also on: 1. Clopidogrel 75 mg daily. 2. Levothyroxine 100 mcg daily. 3. Methotrexate 12.5 mg q.7 days. 4. Levaquin p.o. daily. 5. Torsemide 20 mg b.i.d. 6. Namenda 14 mg p.o. daily. PHYSICAL EXAMINATION: VITAL SIGNS: Temperature 98.5, pulse 72, respirations 18, 96% on room air, blood pressure 92/53. GENERAL: He is awake, alert, and oriented x3. Does not appear in distress. CV: S1 and S2 present. No murmurs, rubs, or gallops. ABDOMEN: Soft and nontender. Bowel sounds are present x2. Again, he will be discharged home and he will follow up with his primary and also EP and Cardiology. Job ID: [id number]
--- NOTE | 2019-07-16 14:05 | EKG ---
Test Reason : Blood Pressure : / mmHG Vent. Rate : 084 BPM Atrial Rate : 086 BPM P-R Int : 000 ms QRS Dur : 160 ms QT Int : 432 ms P-R-T Axes : 000 -72 068 degrees QTc Int : 510 ms AV dual-paced rhythm Biventricular pacemaker detected Abnormal ECG Confirmed by ZOIE LOZANO ([id number]), editor at large KIERAN HARRY ([id number]) on 07/16/2019 2:05:02 PM Referred By: Confirmed By:ZOIE LOZANO
== END 2019-07-14 15:36 | disposition home or self-care (01) | DRG 309 ==
LOC: ERS 21:08 → ERHOLD 22:15 → OBSVTOIN 22:15 → 2NO 07-12 01:20
PROVIDERS: ADMIT Internal Medicine; ATTEND Internal Medicine
PROC: 4B02XTZ Measurement of Cardiac Defibrillator, External Approach (ICD-10-PCS; principal; 2019-07-12)
DX: I47.2 Ventricular tachycardia (principal); I13.0 Hypertensive heart and chronic kidney disease with heart failure and stage 1 through stage 4 chronic kidney disease, or unspecified chronic kidney disease; I50.22 Chronic systolic (congestive) heart failure; I25.10 Atherosclerotic heart disease of native coronary artery without angina pectoris; I48.91 Unspecified atrial fibrillation; E78.5 Hyperlipidemia, unspecified; G89.29 Other chronic pain; M41.9 Scoliosis, unspecified; I73.9 Peripheral vascular disease, unspecified; N18.9 Chronic kidney disease, unspecified; E03.9 Hypothyroidism, unspecified; I25.5 Ischemic cardiomyopathy; M06.9 Rheumatoid arthritis, unspecified; Z96.651 Presence of right artificial knee joint; I25.2 Old myocardial infarction; Z95.810 Presence of automatic (implantable) cardiac defibrillator; Z95.1 Presence of aortocoronary bypass graft; Z90.49 Acquired absence of other specified parts of digestive tract; Z88.1 Allergy status to other antibiotic agents; Z88.8 Allergy status to other drugs, medicaments and biological substances; Z87.891 Personal history of nicotine dependence; Z79.02 Long term (current) use of antithrombotics/antiplatelets; Z79.891 Long term (current) use of opiate analgesic; Z79.899 Other long term (current) drug therapy; Z95.5 Presence of coronary angioplasty implant and graft
CPT/HCPCS: 36415; 36416; 71045; 80048; 80053; 82550; 83735; 84443; 84484; 85025; 93005; 94760; 96360; J1940

== ENCOUNTER 2019-11-25 12:36 | Observation (INO) | payer MEDICARE ==
[2019-11-25 13:32] LABS: #Lymphocytes 0.6 thou/uL (1.20-3.40); #Monocytes 0.4 thou/uL (0.11-0.59); #Neutrophils 4.4 thou/uL (1.40-6.50); %Basophils 0.5 % (0.0-1.0); %Eosinophils 0.7 % (0.0-10.0); %Lymphocytes 11.2 % (21.0-51.0); %Monocytes 7.7 % (0.0-10.0); %Neutrophils 79.9 % (42.0-75.0); Mean Corpuscular HGB CONC 34.3 g/dL (32.0-36.0); Mean Corpuscular Hemoglobin 34.5 pg (27.0-31.0); Mean Platelet Volume 7.4 fL (7.4-10.4); Platelet Count 172 thou/uL (130-400); RBC Distribution Width 13.6 % (11.5-14.5); Red Blood Cell (RBC) Count 3.19 mill/uL (4.70-6.10); White Blood Cell (WBC) Count 5.5 thou/uL (4.8-10.8)
[2019-11-25 14:01] LABS: Anion Gap 12 mmol/L (10-20); BUN (Urea Nitrogen) 18 mg/dL (8.4-25.7); Calc. Creatinine Clearance 0 mL/min (70-130); Carbon Dioxide 27 mmol/L (23-31); Chloride 103 mmol/L (98-107); Estimated GFR-MDRD 58; Potassium 4.1 mmol/L (3.5-5.1); Sodium 138 mmol/L (136-145)
[2019-11-25 14:02] LABS: ALT (SGPT) 32 U/L (8-55); AST (SGOT) 22 U/L (5-34); Albumin 4.5 g/dL (3.4-4.8); Alkaline Phosphatase 66 U/L (40-110); Bilirubin, Total 0.9 mg/dL (0.2-1.2); Calcium 9.4 mg/dL (7.8-10.44); Glucose 96 mg/dL (83-110); Protein, Total 6.5 g/dL (5.8-8.1)
--- NOTE | 2019-11-25 14:22 | RAD ---
EXAM: CHEST ONE VIEW HISTORY: Left arm discomfort. History of prior cardiac ablations. COMPARISON: 09/14/2019 FINDINGS: Triple lead left subclavian AICD device remains in place. Postsurgical changes related to CABG are ag ain noted. The cardiac silhouette is magnified by projection. Pulmonary vasculature is within normal limits. Stable pleural-based density left lung base with stable linear density is again seen p robably due to mild pleural and parenchymal scarring. Lungs otherwise appear clear. Vascular calcifications are seen in the thoracic aorta. IMPRESSION: Stable chest with suggestion of mild chronic lung changes left lung base. No acute cardiopulmonary pr ocess appreciated.
[2019-11-25] MEDS ORDERED: Aspirin Chewable 81 MG TAB ONE (17:51)
[2019-11-25 19:00] LABS: Troponin I 0.027 ng/mL (< 0.028)
[2019-11-25] MEDS ORDERED: Senokot S 8.6-50 MG TAB PO PRN (20:21)
[2019-11-25] MEDS ORDERED: Acetaminophen 325 MG TAB PO PRN (20:21)
[2019-11-25] MEDS ORDERED: Atorvastatin Calcium 40 MG TAB PO SCH (21:00)
[2019-11-25] MEDS: Torsemide 20 MG TAB PO SCH ×2 (21:19→21:22)
[2019-11-25] MEDS: Sacubitril 49 MG/Valsartan 51 MG TABLET PO SCH (21:19)
--- NOTE | 2019-11-25 23:11 | HP ---
CHIEF COMPLAINT: Chest pain. PRIMARY CARE PHYSICIAN: Dr. Carmichael in [place]. IT TECHNICAL SUPPORT SPECIALIST: Tahir Gann M.D. HISTORY OF PRESENT ILLNESS: This is a very pleasant 79-year-old, who came to the emergency room with complaint of lightheadedness, left arm pain, tremors, he reports all over his body, started about 10:00 this morning and lasted about an hour. He reports that after that he started having chest tightness. The patient reports some nausea along with the left-sided discomfort. He denied any shortness of breath or fever. Reports that he quit smoking in 1984. Reports a history of several cardiac ablations, the last one was September 19. He has had a CABG x2, history of atrial fibrillation. He has an AICD, which was changed to a 3-lead in the last year. He has been seen by both Dr. Gann and Dr. Lockhart in the last month. Reports that the last time the AICD fired was in September. He was seen by Dr. Lockhart at that time. reports that he was told that he had some damage in the lower part of his heart and they were waiting for that to heal. Last echocardiogram was done in this hospital in July of 2018. At that point, he had ejection fraction visually estimated at 20% to 25%, inferior akinesis, left atrium moderately to severely dilated, mild mitral regurgitation, aortic valve sclerotic, mild aortic insufficiency. No significant aortic stenosis. Peak gradient 16 mmHg systolic. Mild tricuspid regurgitation, moderately elevated pulmonary artery pressure. EKG in the emergency room showed 73 beats per minute, AV dual paced rhythm. ST segments; T-waves are normal, axis is normal. Chest x-ray with some cardiomegaly. The patient denies chest pain currently, and tremors have stopped. He does report right-sided central tremor, but the tremors he experienced this morning were different. He will be admitted for ACS rule out with serial troponins. REVIEW OF SYSTEMS: Reports chest tightness. Reports some nausea, left arm pain, lightheadedness. PAST MEDICAL HISTORY: 1. Coronary artery disease. 2. Congestive heart failure. 3. Myocardial infarction x2. 4. Atrial fibrillation. 5. AICD. 6. Hyperlipidemia. 7. Hypertension. 8. Osteoarthritis. 9. Chronic back pain. 10. Scoliosis. PAST SURGICAL HISTORY: 1. Knee surgery. 2. CABG in x4, x3. 3. Hernia repair x3. He has had multiple ablations. SOCIAL HISTORY: Drinks alcohol occasionally. He is a former smoker. HOME MEDICATIONS: Home medications, which need to be reconciled. ALLERGIES: CEPHALEXIN, DULOXETINE, ROBAXIN. PHYSICAL EXAMINATION: VITAL SIGNS: Blood pressure 134/77, pulse is 71, respirations 18, PO2 sats 98% on room air. CONSTITUTIONAL: The patient appears nontoxic. He is alert and oriented to person, place, and time, is in no apparent distress. HEAD: Atraumatic and normocephalic. Eyes, pupils are equal, round, and reactive to light. Extraocular muscles are intact. ENT: Mouth exam is normal. Mucous membranes are moist. NECK: Normal range of motion. Trachea is midline. RESPIRATORY: Chest, breath sounds are clear. Chest movement is symmetrical. He has an AICD placed in left upper chest. CARDIOVASCULAR: Paced, regular rate and rhythm. Heart sounds are normal. ABDOMEN: Nontender. Bowel sounds are heard. BACK: Normal range of motion. No tenderness. EXTREMITIES: Upper extremity normal range of motion. Radial pulses are normal. Lower extremity normal range of motion. Pedal pulses normal. NEUROLOGIC: The patient is oriented to person, place, and time. No focal sensory motor deficits. SKIN: Warm, dry, normal in color. PSYCHIATRY: Has a normal affect. He is alert and oriented to person, place, and time. PLAN/ASSESSMENT: 1. Serial troponins, ask Cardiology for their input, they will be consulted. Order an echocardiogram. 2. Restart home medications. 3. History of hypertension. We will restart home medications. 4. History of hyperlipidemia. Restart home medications. 5. History of congestive heart failure with an ejection fraction of 20% to 25% at last echocardiogram. We will restart home medications. 6. Sequential compression devices, gastrointestinal prophylaxis. 7. Case discussed with Dr. Martínez, who agrees with plan. Job ID: [id number]
[2019-11-26 01:16] VITALS: BMI 28.8
[2019-11-26 05:00] LABS: #Eosinphils 0.1 thou/uL (0.0-0.7); #Lymphocytes 0.9 thou/uL (1.20-3.40); #Monocytes 0.5 thou/uL (0.11-0.59); #Neutrophils 2.7 thou/uL (1.40-6.50); %Basophils 0.5 % (0.0-1.0); %Eosinophils 1.3 % (0.0-10.0); %Lymphocytes 21.3 % (21.0-51.0); %Monocytes 11.7 % (0.0-10.0); %Neutrophils 65.2 % (42.0-75.0); Mean Corpuscular HGB CONC 33.3 g/dL (32.0-36.0); Mean Corpuscular Hemoglobin 33.9 pg (27.0-31.0); Mean Platelet Volume 7.4 fL (7.4-10.4); Platelet Count 145 thou/uL (130-400); RBC Distribution Width 13.6 % (11.5-14.5); Red Blood Cell (RBC) Count 2.96 mill/uL (4.70-6.10); White Blood Cell (WBC) Count 4.1 thou/uL (4.8-10.8)
[2019-11-26 05:27] LABS: ALT (SGPT) 27 U/L (8-55); AST (SGOT) 19 U/L (5-34); Albumin 3.8 g/dL (3.4-4.8); Alkaline Phosphatase 57 U/L (40-110); Anion Gap 10 mmol/L (10-20); BUN (Urea Nitrogen) 18 mg/dL (8.4-25.7); Calc. Creatinine Clearance 69 mL/min (70-130); Calcium 8.8 mg/dL (7.8-10.44); Carbon Dioxide 28 mmol/L (23-31); Chloride 105 mmol/L (98-107); Estimated GFR-MDRD 63; Globulin 1.9 g/dL (2.4-3.5); Glucose 83 mg/dL (83-110); Potassium 3.9 mmol/L (3.5-5.1); Protein, Total 5.7 g/dL (5.8-8.1); Sodium 139 mmol/L (136-145)
[2019-11-26] MEDS ORDERED: Levothyroxine Sodium 100 MCG TAB PO SCH (06:00)
[2019-11-26] MEDS ORDERED: Amiodarone 200 MG TAB PO SCH (09:00)
[2019-11-26] MEDS ORDERED: Famotidine 20 MG TAB PO SCH (09:00)
[2019-11-26] MEDS ORDERED: Clopidogrel Bisulfate 75 MG TAB PO SCH (09:00)
[2019-11-26] MEDS: Torsemide 20 MG TAB PO SCH (10:06)
[2019-11-26] MEDS: Sacubitril 49 MG/Valsartan 51 MG TABLET PO SCH (10:06)
[2019-11-26 11:59] VITALS: TEMP 97.8
--- NOTE | 2019-11-26 13:44 | DIS ---
DATE OF ADMISSION: 11/25/2019 DATE OF DISCHARGE: 11/26/2019 DISCHARGE DISPOSITION: Home. FOLLOWUP: 1. Follow up with primary care physician, Yuli Carmichael in 1 week. 2. Follow up with primary pcb design engineer and Electrophysiology as scheduled. 3. The patient was seen and examined on the day of discharge. Denies any new complaints. No chest pain, shortness of breath, or palpitations reported. DISCHARGE MEDICATIONS: Same as admission medication. No changes in medications were made. INPATIENT SURVEY TECHNOLOGIST: Cardiology, Dr. Davis. BRIEF HOSPITAL COURSE: The patient is a 79-year-old male with coronary artery disease, cardiomyopathy status post AICD, hypertension, and hyperlipidemia, presented to the hospital with chest discomfort. Please refer to the history and physical for further details. The patient was admitted to the hospital with a diagnosis of chest discomfort, rule out acute coronary syndrome. His serial troponins remained negative. The patient was evaluated by Cardiology. The patient has been cleared by Cardiology for discharge. His echocardiogram has been done, report is pending at this time. He was advised to follow up on the final echocardiogram report. He is chest pain free at this time. FINAL DIAGNOSES: 1. Chest discomfort. Acute coronary syndrome ruled out. 2. Hypertension. 3. Hyperlipidemia. 4. Chronic systolic heart failure, ejection fraction 20% to 25%, status post automatic implantable cardioverter-defibrillator. 5. Coronary artery disease. 6. Paroxysmal atrial fibrillation. 7. Chronic low back pain. 8. Chronic kidney disease, stage 2. 9. Chronic anemia. 10. The patient understands the above plan of care. Job ID: [id number]
[2019-11-26 14:08] VITALS: BP 108/72
--- NOTE | 2019-11-26 14:28 | CON ---
DATE OF CONSULTATION: 11/26/2019 INDICATION FOR CONSULTATION: A 79-year-old gentleman with an extensive cardiac history with a history of cardiomyopathy, history of coronary artery disease, he has undergone bypass surgery twice. He has stents placed in his saphenous vein graft. He has had AICD placed and has had upgrade to the ICD to a biventricular device. He has had ablations for atrial flutter, atrial fibrillation, and SVT. He has developed episodes of ventricular tachycardia and also received shocks from the AICD device. We were asked to see him after the patient was admitted. He had complained of some chest pressure, but he had been at home, he gotten up, take his medicines, which his usually gives him and he was uncertain whether or not he took the right pills or too many pills. He became nervous and then, developed some chest pressure. He has decided he better go to the hospital. His has taken him to hospital within 20 minutes. Even before he got here, the whole episode had resolved and he has had no problems since that time. He is scheduled to see the relay dispatcher in the near future. There may be further ablations needed due to the ventricular tachycardia, but in the interim, they have increased his amiodarone to see whether or not this can suppress the ventricular tachycardia. Otherwise, he has been remained relatively stable. PAST MEDICAL HISTORY: Significant for coronary artery disease. He has history of congestive heart failure and cardiomyopathy. He has had myocardial infarction in the past. His most recent stress test showed evidence of a myocardial infarction inferiorly and laterally appears to be scar. He has had bypass surgery on 2 different occasions. His last bypass surgery was in 2014, at which time, he had a bypass surgery with HERBERT to the left anterior descending artery, saphenous vein graft to diagonal branch and saphenous vein graft to the right coronary artery prior to undergoing the bypass surgery, cardiac catheterization had indicated that saphenous vein graft to the diagonal branch and obtuse margin branch was 100% occluded. His [place] left anterior descending artery was 100% occluded. Saphenous vein graft to the left anterior descending artery was 50% stenosed. He had a patent stent in the diagonal branch. He had a saphenous vein graft to the right coronary artery, which is also 50% stenosis and in-stent restenoses distally of 99%. Ejection fraction at that time was about 20% with inferior akinesis. He also underwent stent placement in 2018. He also underwent a stress test in 2018 in July, which showed inferior lateral scar, but no ischemia. Echocardiogram at that time showed ejection fraction 20% to 25% with left atrial dilatation and mild mitral valve regurgitation. He also has a history of peripheral vascular disease, been seen by Dr. Joe in the past. There has been some discussion about possible intervention. REVIEW OF SYSTEMS: A 12-point review of systems unremarkable except as noted in the history of present illness. FAMILY HISTORY: Positive for heart disease and cancer. SOCIAL HISTORY: He no longer smokes since 1984. ALLERGIES: HE IS ALLERGIC TO KEFLEX AND METHOCARBAMOL. MEDICATIONS: Prior to admission included: 1. Levothyroxine. 2. Methotrexate. 3. Memantine. 4. Multivitamins. 5. Ferrous sulfate. 6. Hydrocodone/acetaminophen. 7. Folic acid. 8. Calcium plus vitamin D. 9. Vitamin D3. 10. Probiotics. 11. Turmeric. 12. Amiodarone 200 mg one b.i.d. 13. Atorvastatin 40 mg a day. 14. Spironolactone 25 mg half a tablet once a day. 15. Plavix 75 mg a day. 16. Torsemide 20 mg b.i.d. 17. Entresto 49/51 one b.i.d. PHYSICAL EXAMINATION: GENERAL: Reveals an elderly gentleman, who is in no acute distress at this time. He is alert. He is oriented. He is very pleasant. VITAL SIGNS: Blood pressure 106/57, heart rate is 76 and is regular. He is afebrile, respiratory rate 16, and O2 saturation is 97%. HEENT EXAMINATION: Shows head to be normocephalic and atraumatic. Carotid pulses are present without any bruits. CHEST: Clear to auscultation without rales, rhonchi, or wheezing. CARDIOVASCULAR: Heart sounds are distant, but I cannot hear any rubs. No murmurs. No heaves or thrills are noted. ABDOMEN: Soft and nontender. Positive bowel sounds are present. Decreased femoral pulses are present. Very difficult to auscultate the femoral pulse. He has bilateral femoral bruits noted. EXTREMITIES: Showed no clubbing or cyanosis. He does have some discoloration in the left lower extremity, which he says has been chronic since the saphenous vein graft retrieval. I cannot palpate popliteal nor pedal pulses. NEUROLOGIC: The patient appears to be fully intact. He has no gross focal motor deficits. He has normal strength, normal tone. SKIN: Warm and dry. LABORATORY DATA: Shows a hemoglobin of 10 with hematocrit 30.2 with a WBC of 4.1, and platelet count was 145,000. BUN was 18 and creatinine 1.12. His potassium is 3.9. Blood sugar was 83. His BNP was 211. Cardiac enzymes are negative x3. His EKG shows a paced rhythm. He appears to be having atrial pacing with ventricular sensing and in other times, the baseline EKG shows AV pacing. IMPRESSION AND PLAN: 1. Elderly gentleman with severe cardiomyopathy as noted above, status post myocardial infarction, status post bypass surgery with automatic implantable cardioverter-defibrillator implant, who has been followed by the relay dispatcher as well as by Dr. Gann. He has been doing relatively stable after his last ablation, but has developed episodes of ventricular tachycardia, for which the amiodarone was increased. He has had no further episodes that he is aware of. He did have a shock a month or two ago, but I think he was sleeping at that time and this has been already documented by the relay dispatcher and there has been some discussion as to whether or not they may proceed with an ablation of the ventricular tachycardia, which most likely is associated with the inferior scar after his myocardial infarction. Otherwise, he has been doing quite well since his last ablation. He has denied any palpitations or tachycardia. 2. Tremors, which is ongoing problem. This is a chronic problem. 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 When he had the episode yesterday, apparently he developed tremors on both sides. This most likely was due to some anxiety as he was uncertain as to whether or not, he had taken the right medications. 3. History of cardiomyopathy. This has remained stable and as noted above that for his cardiomyopathy, most likely is ischemic in nature after his myocardial infarctions. 4. History of congestive heart failure. He is stable at this time. The BNP is 211. We will continue the same medications. He does have a history of atrial fibrillation, but remains in sinus at this time and is pacing. He has undergone the ablation of atrial fibrillation as well as flutter and also for supraventricular tachycardia. 5. History of significant coronary artery disease. His last bypass surgery was in 2014. He appears that he has remained stable since that time. 6. Peripheral vascular disease. He has decreased pulses in the lower extremities. He has been seen by Dr. Joe in the past and was scheduled for a repeat evaluation. However, he became sick with his arrhythmias and was in the hospital at that time, and this has not been recently evaluated and he will need to undergo further evaluation as an outpatient by Dr. Joe. He may need to undergo angioplasty and stent placement, most likely to the iliacs or to the superficial femoral artery. 7. Hypertension. This is under good control at this time. We will continue his medication. 8. Dyslipidemia. I would continue his statin medications on the atorvastatin. 9. Chronic pain. He is stable at this time. 10. He does have some history of scoliosis, which was not mentioned, but this has remained stable. From a cardiac standpoint, he is stable at this time and could be discharged home. He can follow up with Dr. Gann and Dr. Lockhart as an outpatient and also with Dr. Joe for further evaluation of his peripheral vascular disease. Job ID: [id number]
== END 2019-11-26 13:02 | disposition home or self-care (01) ==
LOC: ERS 12:36 → 2SE 20:52
PROVIDERS: ADMIT Internal Medicine; ATTEND Internal Medicine
DX: I42.9 Cardiomyopathy, unspecified (principal); G25.0 Essential tremor; I13.0 Hypertensive heart and chronic kidney disease with heart failure and stage 1 through stage 4 chronic kidney disease, or unspecified chronic kidney disease; N18.2 Chronic kidney disease, stage 2 (mild); D63.1 Anemia in chronic kidney disease; I50.22 Chronic systolic (congestive) heart failure; I25.10 Atherosclerotic heart disease of native coronary artery without angina pectoris; I48.0 Paroxysmal atrial fibrillation; I25.2 Old myocardial infarction; E78.5 Hyperlipidemia, unspecified; I73.9 Peripheral vascular disease, unspecified; Z79.899 Other long term (current) drug therapy; Z87.891 Personal history of nicotine dependence; Z88.1 Allergy status to other antibiotic agents; Z88.6 Allergy status to analgesic agent; Z88.8 Allergy status to other drugs, medicaments and biological substances; Z95.1 Presence of aortocoronary bypass graft; Z95.5 Presence of coronary angioplasty implant and graft; Z95.810 Presence of automatic (implantable) cardiac defibrillator
CPT/HCPCS: 71045; 80053 ×2; 83880; 84484 ×2; 85025 ×2; 93005; 93306; 96360; 97139 ×2; 99285; G0378 ×3; 36415

== ENCOUNTER 2019-12-05 10:26 | Observation (INO) | payer MEDICARE ==
[2019-12-05 11:28] LABS: #Eosinphils 0.1 thou/uL (0.0-0.7); #Lymphocytes 0.7 thou/uL (1.20-3.40); #Monocytes 0.7 thou/uL (0.11-0.59); #Neutrophils 5.4 thou/uL (1.40-6.50); %Basophils 0.3 % (0.0-1.0); %Eosinophils 0.8 % (0.0-10.0); %Lymphocytes 10.2 % (21.0-51.0); %Monocytes 10.7 % (0.0-10.0); Mean Corpuscular HGB CONC 33.3 g/dL (32.0-36.0); Mean Corpuscular Hemoglobin 33.7 pg (27.0-31.0); Mean Platelet Volume 7.9 fL (7.4-10.4); Platelet Count 186 thou/uL (130-400); RBC Distribution Width 13.5 % (11.5-14.5); Red Blood Cell (RBC) Count 3.27 mill/uL (4.70-6.10); White Blood Cell (WBC) Count 6.9 thou/uL (4.8-10.8)
[2019-12-05] MEDS ORDERED: Fentanyl 100 MCG/2 ML VIAL ONE ×2 (11:38→19:10)
[2019-12-05] MEDS ORDERED: Ondansetron ODT 4 MG TAB ONE (11:38)
[2019-12-05 11:56] LABS: ALT (SGPT) 25 U/L (8-55); AST (SGOT) 25 U/L (5-34); Albumin 4.2 g/dL (3.4-4.8); Alkaline Phosphatase 71 U/L (40-110); Anion Gap 17 mmol/L (10-20); BUN (Urea Nitrogen) 37 mg/dL (8.4-25.7); Bilirubin, Total 1.1 mg/dL (0.2-1.2); CK (CPK) 27 U/L (30-200); CKMB 1.3 ng/mL (0-6.6); Calc. Creatinine Clearance 0 mL/min (70-130); Carbon Dioxide 25 mmol/L (23-31); Chloride 100 mmol/L (98-107); Estimated GFR-MDRD 32; Globulin 2.1 g/dL (2.4-3.5); Glucose 89 mg/dL (83-110); Potassium 4.4 mmol/L (3.5-5.1); Protein, Total 6.3 g/dL (5.8-8.1); Sodium 138 mmol/L (136-145); Troponin I 0.017 ng/mL (< 0.028)
--- NOTE | 2019-12-05 12:07 | RAD ---
CHEST 1 VIEW: Date: 12/05/2019 HISTORY: Syncopal episode. Pain. COMPARISON: 11/25/2019. FINDINGS: Portable upright chest demonstrates sternotomy wires, atherosclerosis, and enlarged cardiac silhouett e. There is stable left-sided defibrillator with lead position over the right atrium, right ventricle , and coronary sinus. Lung volumes are diminished. Patchy interstitial opacities in the lung bases may represent atelectasi s, aspiration, or pneumonia. No significant pleural fluid. No suspicious masses or consolidation in t he upper lungs. No pneumothorax. Lucency underneath the right hemidiaphragm is presumed to represent air in the colon. However, the po ssibility of pneumoperitoneum cannot be entirely excluded. Dedicated left lateral decubitus radiograp h, as well as a lateral chest radiograph are recommended. Results of study discussed with Sheri Babb on 12/05/2019 at 1157 hours. IMPRESSION: As above. CODE CR. POS: [facility]
[2019-12-05] MEDS ORDERED: Ketamine 50 MG/ML (10ML VIAL) ONE (13:49)
--- NOTE | 2019-12-05 14:19 | CT ---
CT Brain WO Con History: Syncope Comparison: Brain CT 2010 Findings: High density debris within the right maxillary sinus with osteitis. Small volume fluid left mastoids. Old peripheral left frontal lobe infarction. No acute hemorrhage. N o large volume acute territorial infarct. No midline shift. No mass effect. Impression: 1. Chronic findings. No acute hemorrhage. 2. Extensive chronic right maxillary sinusitis.
--- NOTE | 2019-12-05 14:38 | CT ---
CT Thoracic Spine WO Con History: Pain with syncope Comparison: Chest radiograph same day for reference. CT lumbar spine January 2019 Findings: Mild bronchiectasis and scarring in the lung bases. The aorta is highly calcified. Intraparenchymal calcifications of the interpolar region of the right kidney. Incomplete evaluation i nfrarenal abdominal aortic aneurysm. Visualized posterior ribs are intact. No acute thoracic spine compression deformity. L1 complete burs t fracture contain cemented. Schmorl's node superior endplate of T11 to chronic. Subtle superior endplate depression of T4 does not appear acute. No acute traumatic facet joint widening. No acute spinous process fracture. Although incompletely evaluated, no definite free air under the hemidiaphragms. Impression: No acute thoracic spine fracture.
[2019-12-05] MEDS ORDERED: Iopamidol-370 76% 500 ML 1 ML ONE (14:51)
--- NOTE | 2019-12-05 15:12 | CT ---
LUMBAR SPINE CT WITHOUT CONTRAST: HISTORY: Syncope episode yesterday. Pain. COMPARISON: None. FINDINGS: Incomplete evaluate evaluation of the solid organs. Refer to separate abdomen and pelvic CT with con trast for further detail. There is atherosclerosis and aneurysmal dilatation of the infrarenal abdom inal aorta. There is associated eccentric thrombus formation and ectasia. Refer to separate abdomen and pelvic CT report for further detail. There is diffuse bone demineralization. There are 5 lumbar-type vertebrae. There is evidence of pre vious vertebroplasty at L1, L3, and L4. The L2 and L5 vertebral body heights are maintained. There is mild paraspinal hematoma and stranding at the L1 level. Despite previous vertebroplasty, th ere appears to be an acute L1 vertebral body fracture predominantly along the right and inferior aspe ct of the vertebral body. There is moderate central canal stenosis secondary to retropulsion. No ev idence of an L2 or L5 fracture. Previously vertebroplasty change limits evaluation for the L3 and L4 vertebral bodies. No obvious fracture. Visualized upper sacrum is unremarkable. Limited evaluation of the contents of the central spinal canal and neural foramen due to technique. T12-L1: Vacuum disk phenomenon. Mild central canal stenosis. Mild bilateral foraminal narrowing. L1 vertebral body: Retropulsion with moderate central canal stenosis. L1-L2: Broad-based disk bulge abuts the thecal sac. No significant central canal stenosis. Moderat e to severe bilateral foraminal narrowing. L2-L3: Broad-based disk bulge, ligamentum flavum thickening, and facet hypertrophy result in moderat e to severe central canal stenosis. Moderate bilateral foraminal narrowing. L2 vertebral body: Vertebral body height is maintained. No retropulsion. L2-L3: Broad-based disk bulge, ligamentum flavum thickening, and facet hypertrophy result in moderat e to severe central canal stenosis. Moderate bilateral foraminal narrowing. L3 vertebral body: Retropulsion with resultant moderate to severe central canal stenosis. L3-L4: Broad-based disk bulge, ligamentum flavum thickening, and facet hypertrophy result in at leas t mild central canal stenosis. Moderate right and moderate to severe left neural foraminal narrowing . L4 vertebral body: Moderate central canal stenosis due to retropulsion. L4-L5: Broad-based disk bulge, ligamentum flavum thickening, and facet hypertrophy result in moderat e central canal stenosis. Moderate to severe bilateral foraminal narrowing. L5 vertebral body: Vertebral body height is maintained. No retropulsion. L5-S1: No significant central canal stenosis or significant neural foraminal narrowing. Broad-based disk bulge is present. There is resultant mild bilateral foraminal narrowing. IMPRESSION: 1. Atherosclerosis with eccentric thrombus formation and aneurysmal dilatation of the infrarenal abd ominal aorta, incompletely evaluated. 2. Previous vertebroplasty with compression deformities at L1, L3, and L4. There appears to be an a cute on chronic L1 compression fracture along the anterior aspect of the L1 vertebral body with alma claire posttraumatic changes. 3. Varying degrees of central canal stenosis and foraminal narrowing as detailed above. Retropulsio n at L1, L3, and L4 do cause significant central canal stenosis. POS: [facility]
--- NOTE | 2019-12-05 15:34 | CT ---
ABDOMEN AND PELVIC CT SCAN WITH IV CONTRAST: HISTORY: Syncopal episode yesterday and now having pain. COMPARISON: 02/09/2012. FINDINGS: There is prominent cardiomegaly. Scattered linear parenchymal changes were noted in both lower lobes , evidence for subsegmental atelectasis and/or chronic change. There is a small hiatal hernia. The visualized liver and borderline distended gallbladder appear unremarkable. No gallstones or gallblad cj wall thickening or pericholecystic fluid. The pancreas is unremarkable. Spleen and adrenal glan ds are unremarkable. There are some bilateral renovascular calcifications. No evidence for obstruct ing calculus. There is extensive tortuosity and aneurysmal dilatation of the abdominal aorta. Th ere is marked vertebral body height loss and vertebral collapse involving L4, L3, and L1 vertebral elvis dies with some associated retropulsion. There is a 1.6 x 2.1 cm diameter sacular aneurysm projecting off the left side of the aorta just below the level of the left renal artery. There is a focal 2.1 x 2.7 cm diameter sacular aneurysm projecting off the right side of the aorta just below the level of the right renal artery. Below this level, there is a more fusiform aneurysm centered at approximate ly the L3 vertebral body level. This aneurysm measures approximately 5.6 cm in the anterior posterio r dimension and 4.4 cm transversely. Just below this aneurysm, there is another aneurysm which is a fusiform aneurysm measuring 4.5 x 4.6 cm in AP and transverse dimensions. There are, in addition, ex tensive vascular calcification changes throughout the aorta and iliac arteries bilaterally with some variable stenosis up to severe particularly involving the common iliac arteries bilaterally. There are small bilateral fat-containing inguinal hernias. No evidence for large or small bowel obst ruction. No free intraperitoneal fluid. Borderline enlarged spleen. The possibility of small nonobstructing renal calculi would be difficult to exclude given the multipl e small vascular renal artery calcifications. IMPRESSION: 1. Multiple abdominal aortic aneurysms along with considerable tortuosity and ectasia as above. 2. Multiple collapsed lumbar vertebral bodies. 3. Borderline splenomegaly. 4. Chronic-appearing linear parenchymal changes in the lung bases. 5. Other findings as above. POS: [facility]
--- NOTE | 2019-12-05 18:17 | HP ---
PRIMARY CARE PHYSICIAN: Dr. Carmichael in [place]. OUTPATIENT ELECTROPHYSIOLOGISTS: Dr. Lockhart and Dr. Jacobson at [facility] in [place]. CHIEF COMPLAINT: Syncope with AICD firing. HISTORY OF PRESENT ILLNESS: This is a 79-year-old white male with a known history of atrial fibrillation and ventricular arrhythmias with AICD and pacemaker in place. He has had some issues with it firing multiple times over the last few months. He has been sent down to Dr. Jacobson at [facility], has had ventricular ablations, and had his amiodarone increased to twice a day. Since last seen Dr. Jacobson in [place], the patient has had two firings of his AICD, one was a couple weeks ago and then four days ago, the patient was soaking his feet. His was not available, so after he got finished, he picked up the bowl of water to go dump it in the sink. While he was carrying it to sink, he was holding his breath and performing a Valsalva maneuver. After he dumped up the water, he then lost consciousness. He had no preceding symptoms. He woke up on the floor. He felt fine at that time. No chest pain. No shortness of breath. He came back fairly quickly per his . After this happened, he did go with his to do shopping in [place] and several other places and was able to do that just fine. However, toward the end of the day, he did notice some worsening low back pain. He does have chronic low back pain with history of multiple compression fractures with previous cement placement. Because the patient was out of town, the office was unable to get a hold of him until the next morning. They informed his AICD had fired during the syncopal episode. The patient's back was bothering him a lot, though he did not feel like going to the hospital. Eventually, his was able to get him to go in the hospital today. He is not having any symptoms currently except for some pain at the bottom right of his rib cage, which he says has been sore ever since the fall and he thinks he may have hit it on the edge of the counter and his low back pain. The low back pain does not radiate anywhere. He has not had any weakness in his lower extremities. REVIEW OF SYSTEMS: CONSTITUTIONAL: No fevers. No chills. EYES: No double vision or blurred vision. ENT: He has some chronic nasal drainage, but nothing different from normal. No sore throat. CARDIOVASCULAR: No chest pain. No palpitations or racing heart. He has not noticed any firing of the defibrillator. PULMONARY: No coughing, wheezing, or shortness of breath. He does have a little bit of tenderness to the right lower anterior rib cage with deep breaths or with the occasional cough he gets from his allergies. GASTROINTESTINAL: No abdominal pain. No nausea or vomiting. No diarrhea. He does get a little bit constipated ever since his previous back injuries and so he takes MiraLAX daily, which helps him to have daily soft bowel movement. GENITOURINARY: No dysuria or hematuria. MUSCULOSKELETAL: Just the low back pain. No pain in his legs or other musculoskeletal complaints. SKIN: No rashes or lesions he has noted. NEUROLOGIC: No numbness, tingling, or focal weakness. PAST MEDICAL HISTORY: 1. Coronary artery disease with ischemic cardiomyopathy. 2. Systolic congestive heart failure with an ejection fraction of 20% to 25%. 3. Paroxysmal atrial fibrillation. 4. Dyslipidemia. 5. Hypertension. 6. Osteoarthritis. 7. Chronic low back pain from multiple compression fractures. 8. Scoliosis. PAST SURGICAL HISTORY: 1. Right total knee replacement. 2. CABG, 4-vessel and then a 3-vessel repeat. 3. Hernia repair x3. 4. Multiple cardiac ablations including ventricular ablations. 5. Hemorrhoidectomy. 6. Left leg surgery. 7. Appendectomy. FAMILY HISTORY: Significant for multiple family members with coronary artery disease. SOCIAL HISTORY: The patient is . is at the bedside. He is a full code. He quit smoking greater than 10 years ago. He has occasional alcohol. No illicit drugs. ALLERGIES: 1. CEPHALEXIN. 2. DULOXETINE. 3. METHOCARBAMOL. MEDICATIONS: Home med list reviewed with patient. See computer record for full details. PHYSICAL EXAMINATION: VITAL SIGNS: Blood pressure 104/58, pulse 70, respirations 17, temperature 97.7 , O2 saturation 94% on room air. GENERAL: This is a well-developed, well-nourished white male, in no acute distress. HEENT: Pupils are equal, round, and reactive to light. Oropharynx is clear without lesions, erythema, or exudate. NECK: Supple. No lymphadenopathy. No thyroid nodules or enlargement. HEART: Regular rate and rhythm. No murmurs, rubs, or gallops. LUNGS: Clear to auscultation bilaterally. No wheezes, crackles, or rhonchi. He has an area of point tenderness on the bottom of right hand anterior rib cage without any visible bruising or deformity. ABDOMEN: Soft and nontender to palpation. Normoactive bowel sounds. No hepatosplenomegaly or other masses. It does cause back pain when I press too deeply on his abdomen. EXTREMITIES: No clubbing or cyanosis. He does have some bilateral lower extremity edema, worse on the left side from some lymphedema. SKIN: The patient has chronic redness to his left anterior heath in the patch. They stated ever since his CABG, he has had some lymphedema there, but he also has a new denuded area, where he scraped the anterior heath with his fingernail while planning to pull off his socks. This does not have any redness surrounding it besides the chronic edema changes and no exudate from it at this time. NEUROLOGIC: Intact strength and sensation in all extremities. No facial droop. PSYCHIATRIC: Alert and oriented x3. Normal mood and affect. LABORATORY DATA: CBC with a white blood cell count of 6.9, hemoglobin 11.0, hematocrit 33.1, platelet count 186. Complete metabolic panel is notable for BUN of 37 and creatinine of 2.01, which is actually elevated for him. Usually he runs between 1.1 and 1.3, though he does bump up occasionally due to his diuretics. Creatine kinase was low at 27. CK-MB was normal. The rest of his CMP was normal. His troponin was negative. His brain natriuretic peptide was 112, which is actually low for him. He can get up to the 200 to 400s. IMAGING STUDIES: 1. CT of the brain shows chronic findings with no acute hemorrhage. He does have extensive chronic right maxillary sinusitis. 2. Chest x-ray done in the emergency room. I did review the chest x-ray along with the radiologist's report. It does show sternotomy wires. There are some patchy interstitial opacities in lung bases, possibly atelectasis. No pleural fluid. No masses. There is a lucency of the right hemidiaphragm thought to represent air in the colon, though a pneumoperitoneum is not entirely excluded. 3. Thoracic spine CT shows no acute thoracic spine fractures, mild bronchiectasis and scarring in the lung bases, but no evidence for infection. 4. CT abdomen and pelvis shows multiple abdominal aortic aneurysms along with considerably tortuous and ectatic aorta. Multiple collapsed lumbar vertebral bodies. Borderline splenomegaly. Chronic-appearing linear parenchymal changes of the lung bases, but no evidence of free air. 5. CT of the lumbar spine shows previous vertebroplasty, compression deformities of L1, L3 and L4, and appears to be acute on chronic L1 compression fracture along the anterior aspect of the L1 vertebral body, also with varying degrees of central canal stenosis and foraminal narrowing with retropulsion at L1, L3 and L4 causing some significant central canal stenosis. ASSESSMENT AND PLAN: 1. Syncopal episode with ventricular arrhythmia requiring automatic implantable cardioverter defibrillator firing. The patient has not had no more episodes for the last four days. We will put the patient in observation in the hospital. I have contacted Dr. Lockhart's office. Dr. Light who is covering for Dr. Lockhart will cover tomorrow. I did discuss the case with their PA. She recommended no changes to the amiodarone regimen now, but however, if the patient has some bad ventricular tachycardia runs in the hospital overnight, then we can load with 150 mg of amiodarone at that time IV. We will go ahead and get the pacer interrogated. 2. Acute on chronic compression fracture of the lumbar spine with severe lumbar disease. Neurosurgery was already consulted from the emergency room. They are recommending no intervention at this time. They state that the patient needs a TLSO brace placed in the hospital and they can follow up with him as an outpatient in a week. 3. Acute on chronic renal failure. We will hold the patient's torsemide and spironolactone for now. We will recheck in the morning. We will give a small amount of fluids here in the IV, but we will need to watch closely for any evidence of volume overload given the patient's known congestive heart failure. 4. Skin tear to left heath. We will have Wound Care evaluate. This does not look infected at this time, but we will keep a close eye on it. 5. Chronic systolic congestive heart failure. We will resume Entresto and other cardiac medications. 6. Coronary artery disease. We will resume the patient's statin and Plavix. 7. Gastrointestinal prophylaxis. We will put the patient is on Pepcid twice a day. 8. Deep venous thrombosis prophylaxis. We will keep the patient on sequential compression devices while in bed. 9. Code status. I did discuss this with the patient. He is a full code. Should he be incapacitated, his would be his medical decision maker. Her name is Michelle Dejesus. Job ID: [id number] MTDD
[2019-12-05] MEDS ORDERED: Guaifenesin DM 100-10/5 ML UDCUP PO PRN (19:25)
[2019-12-05] MEDS ORDERED: Polyethylene Glycol OPTH DROP 15 ML BOT EA EYE PRN (19:25)
[2019-12-05] MEDS ORDERED: Ondansetron ODT 4 MG TAB PO PRN (19:25)
[2019-12-05] MEDS ORDERED: Senokot S 8.6-50 MG TAB PO PRN (19:25)
[2019-12-05] MEDS ORDERED: Ondansetron PF 4 MG/2 ML Vial IVP PRN (19:25)
[2019-12-05] MEDS ORDERED: Acetaminophen 650 MG Suppository PR PRN (19:25)
[2019-12-05] MEDS ORDERED: HYDROcodone/Acetaminophen 5/325 mg Tablet PO PRN (19:25)
[2019-12-05] MEDS ORDERED: Nitroglycerin 0.4 MG TAB (25 Tab Bottle) SL PRN (19:25)
[2019-12-05] MEDS ORDERED: Acetaminophen 325 MG TAB PO PRN (19:25)
[2019-12-05] MEDS ORDERED: Famotidine 20 MG TAB PO SCH (21:00)
[2019-12-05] MEDS ORDERED: Atorvastatin Calcium 40 MG TAB PO SCH (21:00)
[2019-12-05 22:37] VITALS: BMI 28.7
[2019-12-05] MEDS: Amiodarone 200 MG TAB PO SCH (22:38)
[2019-12-05] MEDS: Folic Acid 1 MG TAB PO SCH (22:38)
[2019-12-05] MEDS: Sacubitril 49 MG/Valsartan 51 MG TABLET PO SCH (22:39)
[2019-12-06 04:49] LABS: #Eosinphils 0.2 thou/uL (0.0-0.7); #Lymphocytes 0.8 thou/uL (1.20-3.40); #Monocytes 0.6 thou/uL (0.11-0.59); #Neutrophils 3.7 thou/uL (1.40-6.50); %Basophils 0.1 % (0.0-1.0); %Eosinophils 3.3 % (0.0-10.0); %Lymphocytes 15.5 % (21.0-51.0); %Monocytes 10.6 % (0.0-10.0); %Neutrophils 70.5 % (42.0-75.0); Hemoglobin 11.2 g/dL (14.0-18.0); Mean Corpuscular HGB CONC 32.8 g/dL (32.0-36.0); Mean Corpuscular Hemoglobin 32.9 pg (27.0-31.0); Mean Platelet Volume 8.4 fL (7.4-10.4); Platelet Count 199 thou/uL (130-400); RBC Distribution Width 13.6 % (11.5-14.5); Red Blood Cell (RBC) Count 3.42 mill/uL (4.70-6.10); White Blood Cell (WBC) Count 5.3 thou/uL (4.8-10.8)
[2019-12-06 05:09] LABS: Anion Gap 13 mmol/L (10-20); BUN (Urea Nitrogen) 34 mg/dL (8.4-25.7); Calc. Creatinine Clearance 45 mL/min (70-130); Calcium 9.6 mg/dL (7.8-10.44); Carbon Dioxide 27 mmol/L (23-31); Chloride 101 mmol/L (98-107); Estimated GFR-MDRD 39; Glucose 85 mg/dL (83-110); Potassium 4.5 mmol/L (3.5-5.1); Sodium 136 mmol/L (136-145)
[2019-12-06] MEDS ORDERED: Levothyroxine Sodium 100 MCG TAB PO SCH (06:00)
[2019-12-06] MEDS ORDERED: Ferrous Sulfate 325 MG TAB PO SCH (08:00)
[2019-12-06] MEDS: Amiodarone 200 MG TAB PO SCH (08:40)
[2019-12-06] MEDS: Sacubitril 49 MG/Valsartan 51 MG TABLET PO SCH (08:41)
[2019-12-06] MEDS: Folic Acid 1 MG TAB PO SCH (08:41)
[2019-12-06] MEDS ORDERED: Multivit, Therapeutic 1 TAB PO SCH (09:00)
[2019-12-06] MEDS ORDERED: Clopidogrel Bisulfate 75 MG TAB PO SCH (09:00)
[2019-12-06] MEDS ORDERED: Polyethylene Glycol 3350 17 GM Packet PO SCH (09:00)
--- NOTE | 2019-12-06 09:00 | PDOC.HOSPP ---
- Subjective Encounter Date: 12/06/19 Encounter Time: 11:00 Subjective: Patient without complaints. Back pain ok while lying still. Didn't like the TLSO brace so refused to let occupational therapy place it this AM. I did discuss it with him at length and neurosurgery recommendations that he at least wear it while sitting up or ambulating. He is thinking about if he is agreeable to letting therapist teach his how to put it one for home use. - Objective Vital Signs & Weight: Vital Signs (12 hours) Temp Pulse Resp BP BP Pulse Ox 12/06/19 07:00 98.6 F 76 14 105/59 L 97 12/06/19 03:20 97.7 F 70 16 84/53 L 95 12/05/19 23:01 97.6 F 71 16 96/55 L 92 L Weight Weight 200 lb I&O: 12/05/19 12/06/19 12/07/19 06:59 06:59 06:59 Intake Total 240 Balance 240 Result Diagrams: 12/06/19 04:35 12/06/19 04:35 Hospitalist ROS - Review of Systems Constitutional: denies: fever, chills Respiratory: denies: cough, shortness of breath Cardiovascular: denies: chest pain, palpitations, orthopnea Gastrointestinal: denies: nausea, vomiting, abdominal pain, diarrhea, constipation Musculoskeletal: reports: back pain Neurological: denies: weakness, numbness - Medication Medications: Active Medications Generic Name Dose Route Start Last Admin Trade Name Freq PRN Reason Stop Dose Admin Amiodarone HCl 200 mg 12/05/19 21:00 12/06/19 08:40 Cordarone PO 200 mg BID THADDEUS Administration Atorvastatin Calcium 40 mg 12/05/19 21:00 12/05/19 22:38 Lipitor PO 40 mg QPM THADDEUS Administration Cholecalciferol 2,000 units 12/06/19 09:00 12/06/19 08:40 Vitamin D3 PO 2,000 units DAILY THADDEUS Administration Clopidogrel Bisulfate 75 mg 12/06/19 09:00 12/06/19 08:41 Plavix PO 75 mg DAILY THADDEUS Administration Famotidine 20 mg 12/05/19 21:00 12/05/19 22:38 Pepcid PO 20 mg QPM THADDEUS Administration Ferrous Sulfate 325 mg 12/06/19 08:00 12/06/19 08:40 Feosol PO 325 mg QAM-WM THADDEUS Administration Folic Acid 2 mg 12/05/19 21:00 12/06/19 08:41 Folvite PO 2 mg BID THADDEUS Administration Levothyroxine Sodium 100 mcg 12/06/19 06:00 12/06/19 06:35 Synthroid PO 100 mcg 0600 THADDEUS Administration Multivitamins 1 tab 12/06/19 09:00 12/06/19 08:41 Theragran PO 1 tab DAILY THADDEUS Administration Polyethylene Glycol 17 gm 12/06/19 09:00 12/06/19 08:41 Miralax PO 17 gm DAILY THADDEUS Administration Sacubitril/Valsartan 1 tab 12/05/19 21:00 12/06/19 08:41 Entresto 49 Mg-51 Mg Tablet PO 1 tab BID THADDEUS Administration Sodium Chloride 10 ml 12/05/19 19:44 12/06/19 08:41 Flush - Normal Saline IVF 10 ml PRN PRN Administration Saline Flush - Exam General Appearance: NAD, awake alert ENT: moist mucosa Heart: RRR, no murmur, no gallops, no rubs Respiratory: CTAB, no wheezes, no rales, no ronchi Gastrointestinal: soft, non-tender, non-distended, normal bowel sounds Psychiatric: normal affect, normal behavior, A&O x 3 Hosp A/P (1) Syncope and collapse Code(s): R55 - SYNCOPE AND COLLAPSE Status: Acute (2) AICD discharge Code(s): Z45.02 - ENCNTR FOR ADJUST AND MGMT OF AUTOMATIC IMPLNTBL CARD DEFIB Status: Acute (3) V tach Code(s): I47.2 - VENTRICULAR TACHYCARDIA Status: Acute (4) Lumbar compression fracture Code(s): S32.000A - WEDGE COMPRESSION FRACTURE OF UNSP LUMBAR VERTEBRA, INIT Status: Acute Qualifiers: Lumbar vertebra fracture level: L1 Plan: Neurosurg f/u outpatient, TLSO brace (5) Acute on chronic renal failure Code(s): N17.9 - ACUTE KIDNEY FAILURE, UNSPECIFIED; N18.9 - CHRONIC KIDNEY DISEASE, UNSPECIFIED Status: Acute (6) Skin tear of lower leg without complication Code(s): S81.819A - LACERATION WITHOUT FOREIGN BODY, UNSP LOWER LEG, INIT ENCNTR Status: Acute (7) Systolic congestive heart failure Code(s): I50.20 - UNSPECIFIED SYSTOLIC (CONGESTIVE) HEART FAILURE Status: Chronic Qualifiers: Heart failure chronicity: chronic Qualified Code(s): I50.22 - Chronic systolic (congestive) heart failure (8) CAD (coronary artery disease) Code(s): I25.10 - ATHSCL HEART DISEASE OF UTE CORONARY ARTERY W/O ANG PCTRS Status: Chronic (9) HLD (hyperlipidemia) Code(s): E78.5 - HYPERLIPIDEMIA, UNSPECIFIED Status: Chronic (10) Hypertension Code(s): I10 - ESSENTIAL (PRIMARY) HYPERTENSION Status: Chronic - Plan Patient without further discharge of AICD. Pacemaker interrogation and EP consult today. Home when ok with EP. Holding diuretics for now and creatinine improved. TLSO brace and Neuro surgery f/u outpatient. Restart diuretics tomorrow AM and f/u lab with PCP in 1 week.
[2019-12-06 11:34] VITALS: TEMP 97.8
[2019-12-06 12:20] VITALS: BP 92/54
[2019-12-06] MEDS ORDERED: Amiodarone 200 MG TAB PO SCH (15:00)
--- NOTE | 2019-12-06 16:40 | CON ---
DATE OF CONSULTATION: REASON FOR CONSULTATION: ICD discharge, ventricular tachycardia. HISTORY OF PRESENT ILLNESS: Mr. Dejesus presented to [facility] on 12/05/2019, reporting syncope and collapse with significant back pain. He is admitted under observation and his ICD was interrogated revealing an ICD shock, prompting EP consultation. He was found to have a compression fracture of L1 and Neurosurgery was consulted. The patient needs a TLSO brace. He has also been evaluated for a skin tear in the left heath that does appear to have some cellulitis around it. Mr. Dejesus is well known to our group for a history of ventricular tachycardia, atrial fibrillation, ischemic cardiomyopathy, and inclusion of a Bi-V ICD. In August, he had incessant VT and was transferred to [facility] and underwent a VT ablation for two separate VT morphologies. He was noninducible post ablation, but unfortunately received another shock for a different and faster ventricular tachycardia that had been previously seen and ablated. His amiodarone was then increased to 200 mg b.i.d. and he had been doing well without any recurrent VT episodes until November 30 when he had an episode of VT that did not convert with ATP therapy and required ICD defibrillation, which successfully restored sinus rhythm. At that time, Mr. Dejesus had been straining in a big pocket of water holding his breath. He was able to jump out of a bucket of water. He denies any heart racing or palpitations or awareness of an ICD shock at the time but passed out and woke up on the floor. He received notification from our office the next day , notifying them that he had received an ICD shock. He was in significant pain, prompting his eventual presentation to the hospital. REVIEW OF SYSTEMS: Mr. Dejesus currently denies any heart racing, palpitations, chest pain, pressure, syncope, near syncope, stroke, stroke-like symptoms. He does endorse a dull ache in his lower back and occasional radiating pain down his legs, but otherwise his pain is greatly improved in the past 24 hours. Otherwise, 12-point review of systems is negative. PAST MEDICAL HISTORY: 1. Ischemic cardiomyopathy, EF 20% to 25% in 2018. 2. Hypertension. 3. Osteoarthritis. 4. COPD. 5. Paroxysmal atrial fibrillation, low burden. 6. CAD with prior bypass grafting. 7. Obstructive sleep apnea. 8. Typical atrial flutter ablation in 2005. 9. Ventricular tachycardia, status post ablation on 12/19/2015, redo on 2018, recurrent issue of new VT morphology seen in September 2019, requiring increased amiodarone. 10. Antiarrhythmic therapy, on amiodarone. 11. Lumbar disease with recent compression fracture of L1. ALLERGIES: CEPHALEXIN, DULOXETINE, METHOCARBAMOL. HOME MEDICATIONS: 1. Turmeric. 2. Torsemide 20 mg daily. 3. Aldactone. 4. Calcium with vitamin D. 5. Digestive bacillus supplement. 6. Atorvastatin 40 mg q.p.m. 7. Amiodarone 200 mg p.o. b.i.d. 8. Nitroglycerin 0.4 mg sublingual as needed. 9. Multivitamin daily. 10. Methotrexate sodium 12.5 mg weekly. 11. Levothyroxine 100 mcg daily. 12. [place] 5-325 q.5 hours p.r.n. 13. Folic acid 2 mg b.i.d. 14. Ferrous sulfate 325 mg b.i.d. 15. Clopidogrel 75 mg p.o. daily. 16. Vitamin D3 2000 units daily. 17. Entresto 49/51 mg b.i.d. FAMILY HISTORY: Noncontributory. SOCIAL HISTORY: . Denies alcohol, tobacco, or illicit drug use. PHYSICAL EXAMINATION: VITAL SIGNS: Temperature 97.8, pulse 73, blood pressure 105/59, respirations 14 , oxygen 97% on room air. GENERAL: Patient is alert, oriented. Speech is clear. Affect is appropriate. He is in no apparent distress. NECK: Supple without jugular venous distention. Thyroid is not palpable. No lymphadenopathy. LUNGS: Clear to auscultation bilaterally without wheezes, crackles, or rhonchi. Respirations are even and unlabored. HEART: Heart rate is regularly regular without murmur, rub, or gallop. PMI is nondisplaced. Device is palpable at the left infraclavicular fossa and site is intact with no swelling, bruising, erosion, or drainage. ABDOMEN: Soft, nontender without palpable masses and positive bowel sounds are noted throughout. There is no hepatosplenomegaly and hepatojugular reflex is negative. EXTREMITIES: Warm to the touch without clubbing, cyanosis. Lower extremity does show a 2 cm x 2 cm skin tear with localized erythema and +1 pitting edema concerning for cellulitis. LABORATORY DATA: Database: EKG today shows sinus rhythm and sequential AV pacing with cardiac resynchronization therapy. DEVICE INTERROGATION: The patient has a [employer] Viva Quad S- CORPORATE LEGAL SECRETARY-D implanted on 07/03/2017. Battery longevity is 20 months. Lead impedances are stable. Capture thresholds are stable. Mode DDDR, lower rate limit of 70. An episode of rapid ventricular flutter is seen. Cycle length of 240 milliseconds. Unresponsive to ATP therapy requiring ICD shock to restore sinus rhythm. AF burden is 0%. OptiVol is stable. ATP therapies were reprogrammed to be more aggressive today. IMPRESSION: 1. CORPORATE LEGAL SECRETARY ICD in situ with normal operation and ATP therapies in place, made more aggressive 2. Ventricular flutter 3. Ischemic cardiomyopathy. 4. Compression fracture, managed by Neurosurgery. 5. Skin tear with likely cellulitis. PLAN AND RECOMMENDATIONS: Mr. Dejesus unfortunately continues to have ventricular arrhythmia issues of different morphologies and faster rate than was previously seen at time of ablation in August. He will continue his amiodarone 200 mg b.i.d. He does have an appointment tomorrow with Dr. Jacobson to discuss his ventricular tachycardia and possible ablative therapies moving forward as it has been three months since his last ablation. That being said, we may need to increase his amiodarone therapy while he recovers from his compression fractures if the timing is not appropriate for ablation at this time. He will be seen in clinic tomorrow at noon. This appears to be V. Flutter and is concerning for ischemia given his history. Appreciate cardiology input in this matter. Thank you for allowing us to participate in the care of this patient. Job ID: [id number] [facility]
--- NOTE | 2019-12-07 14:55 | DIS ---
DATE OF ADMISSION: 12/05/2019 DATE OF DISCHARGE: 12/06/2019 PRIMARY CARE PHYSICIAN: Dr. Carmichael in [place]. REASON FOR ADMISSION: Lumbar compression fracture and syncope with AICD firing. DIAGNOSES AT DISCHARGE: 1. Syncope and collapse. 2. AICD discharge. 3. Ventricular tachycardia. 4. Lumbar compression fracture. 5. Acute on chronic renal failure. 6. Skin tear of the lower leg without complication. 7. Systolic congestive heart failure, chronic. 8. Coronary artery disease. 9. Hyperlipidemia. 10. Hypertension. PROCEDURES: 1. CT of the brain without contrast showing chronic findings, no acute hemorrhage. 2. CT of the lumbar spine without constant showing previous vertebroplasty with compression deformities of L1, L3, and L4 with an acute on chronic L1 compression fracture and varying degrees of central canal stenosis and foraminal narrowing at L1, L3, and L4. 3. CT scan of the thoracic spine without contrast showing no acute thoracic spine fractures. 4. CT of the abdomen and pelvis with contrast showing multiple abdominal aortic aneurysms along with considerable tortuosity and ectasias as described. Multiple collapsed lumbar vertebral bodies. Borderline splenomegaly, chronic appearing linear parenchymal changes in lung bases. CONSULTATIONS: Electrophysiology, Dr. Nilay Light for Dr. Lockhart. SUMMARY OF HOSPITAL COURSE: This is a 79-year-old white male with a known history of atrial fibrillation, ventricular arrhythmias with AICD and pacemaker in place, difficulties with multiple firings of the pacemaker, has been seeing Dr. Jacobson at [facility], has had multiple ventricular ablations and has amiodarone increased. He came in 4 days after a syncopal episode that was associated with firing of his AICD. He later in the day also noticed after the fall that he was starting to have some significant low back pain. This pain progressed over the next 4 days until eventually he went into the hospital. He was seen in the emergency room, had a CT scan with above compression fracture. Neurosurgery was consulted from the emergency room. They reviewed the films and recommended that a TLSO brace be placed and that he follow up with him as an outpatient. The patient also had a skin tear that was noticed and Wound Care was evaluated, that while he was in the hospital, there was no infection noted. He also had some acute on chronic renal failure, so his torsemide and spironolactone were held during his hospitalization and then improved. The patient had no firing of his device during his overnight stay. He has pacemaker interrogated and he was seen by Electrophysiology. Recommendation was made to increase his amiodarone to 3 times a day and to follow up with Dr. Jacobson in [place] the day after discharge. DISCHARGE MANAGEMENT: Discharged home. ACTIVITY: As tolerated. He is to wear his TLSO brace when sitting up or ambulating. DIET: Healthy heart, fluid-restricted, low-sodium diet. FOLLOWUP: The patient is to follow up with cardiac rehab in 7 days, with his primary care doctor in 1 week, and with Dr. Jacobson tomorrow. DISCHARGE MEDICATIONS: 1. Amiodarone 200 mg 3 times a day, 90 tablets dispensed. 2. Atorvastatin 40 mg at night. 3. Digestive Advantage 2 tablets at night. 4. Calcium plus D3 extended release 630 mg twice a day. 5. Vitamin D3 2000 units daily. 6. Clopidogrel 75 mg daily. 7. Ferrous sulfate 325 mg twice a day. 8. Folic acid 2 mg twice a day. 9. Hydrocodone/acetaminophen 5/325 mg one tablet every 5 hours as needed for pain. 10. Levothyroxine 100 mcg daily. 11. Methotrexate 12.5 mg q.7 days. 12. Multivitamin daily. 13. Nitroglycerin 0.4 mg as needed for pain. 14. Systane eyedrops one drop in each eye as needed. 15. Entresto 49/51 mg one tablet twice a day. 16. Spironolactone 12.5 mg daily, to be restarted tomorrow. 17. Torsemide 20 mg daily, to be restarted tomorrow. 18. Turmeric 500 mg at night. Job ID: [id number]
[2019-12-12] MEDS ORDERED: Methotrexate Sodium 2.5 MG TAB PO SCH (09:00)
== END 2019-12-06 16:58 | disposition home or self-care (01) ==
LOC: ERS 10:26 → ERHOLD 17:13 → 2SE 22:26
PROVIDERS: ADMIT Internal Medicine; ATTEND Internal Medicine
DX: R55 Syncope and collapse (principal); I47.2 Ventricular tachycardia; M48.56XA Collapsed vertebra, not elsewhere classified, lumbar region, initial encounter for fracture; N17.9 Acute kidney failure, unspecified; I13.0 Hypertensive heart and chronic kidney disease with heart failure and stage 1 through stage 4 chronic kidney disease, or unspecified chronic kidney disease; N18.9 Chronic kidney disease, unspecified; I50.22 Chronic systolic (congestive) heart failure; E78.5 Hyperlipidemia, unspecified; I48.0 Paroxysmal atrial fibrillation; G47.33 Obstructive sleep apnea (adult) (pediatric); M19.90 Unspecified osteoarthritis, unspecified site; S81.819A Laceration without foreign body, unspecified lower leg, initial encounter; I25.10 Atherosclerotic heart disease of native coronary artery without angina pectoris; Z98.890 Other specified postprocedural states; Z88.8 Allergy status to other drugs, medicaments and biological substances; Z95.0 Presence of cardiac pacemaker; Z79.899 Other long term (current) drug therapy; Z88.1 Allergy status to other antibiotic agents
CPT/HCPCS: 70450; 71045; 72128; 72131; 74177; 80048; 80053; 82550; 82553; 83880; 84484; 85025 ×2; 93005; 93798; 96372; 96374; 96375; 97139 ×2; 97535; 97760; 99285; G0378 ×3; 36415; J3010; Q0162; Q9967

== ENCOUNTER 2020-01-29 19:38 | Emergency (ER) | payer MEDICARE ==
[2020-01-29] MEDS ORDERED: Ondansetron PF 4 MG/2 ML Vial ONE (19:59)
[2020-01-29] MEDS ORDERED: Lorazepam 2 MG/ML VIAL ONE (19:59)
[2020-01-29 20:23] LABS: #Lymphocytes 0.8 thou/uL (1.20-3.40); #Monocytes 0.5 thou/uL (0.11-0.59); #Neutrophils 4.1 thou/uL (1.40-6.50); %Basophils 0.3 % (0.0-1.0); %Eosinophils 0.8 % (0.0-10.0); %Lymphocytes 15.1 % (21.0-51.0); %Monocytes 9.5 % (0.0-10.0); %Neutrophils 74.3 % (42.0-75.0); Hemoglobin 11.5 g/dL (14.0-18.0); Mean Corpuscular HGB CONC 33.8 g/dL (32.0-36.0); Mean Corpuscular Hemoglobin 32.8 pg (27.0-31.0); Mean Platelet Volume 7.4 fL (7.4-10.4); Platelet Count 181 thou/uL (130-400); RBC Distribution Width 13.7 % (11.5-14.5); White Blood Cell (WBC) Count 5.5 thou/uL (4.8-10.8)
[2020-01-29 20:41] LABS: ALT (SGPT) 40 U/L (8-55); AST (SGOT) 24 U/L (5-34); Albumin 4.4 g/dL (3.4-4.8); Alkaline Phosphatase 74 U/L (40-110); Anion Gap 11 mmol/L (10-20); BUN (Urea Nitrogen) 19 mg/dL (8.4-25.7); Bilirubin, Total 1.3 mg/dL (0.2-1.2); CK (CPK) 28 U/L (30-200); Calc. Creatinine Clearance 0 mL/min (70-130); Calcium 9.7 mg/dL (7.8-10.44); Carbon Dioxide 28 mmol/L (23-31); Chloride 101 mmol/L (98-107); Estimated GFR-MDRD 48; Globulin 2.2 g/dL (2.4-3.5); Glucose 96 mg/dL (83-110); Lipase 31 U/L (8-78); Potassium 4.1 mmol/L (3.5-5.1); Protein, Total 6.6 g/dL (5.8-8.1); Sodium 136 mmol/L (136-145)
--- NOTE | 2020-01-29 20:50 | RAD ---
RADIOGRAPH CHEST 1 VIEW: DATE: 01-29-2020 TIME: 8:14 P.M HISTORY: 79-year-old male with nausea and vomiting. COMPARISON: 12-05-2019 FINDINGS: There is cardiomegaly. The thoracic aorta is tortuous and ectatic. There is no evidence of air space density, pulmonary edema, or pneumothorax. The lateral costophrenic angles are sharp. Sternotomy wi res and surgical clips over the left mediastinal and heart shadow. Left subclavian AICD. Air undernea th bilateral hemidiaphragms is similar to prior study, consistent with air in the colon, including co lonic interposition on the right. There is no interval change overall. IMPRESSION: 1) No acute pulmonary findings. 2) Cardiomegaly without congestive heart failure. 3) Ectasia of thoracic aorta. 4) Implantable cardioverter-defibrillator. 5) Status post coronary artery bypass graft surgery is evidence for coronary atherosclerosis. jn POS: JIN
[2020-01-29 20:51] LABS: Bilirubin Negative (Negative); Blood, Urine Negative (Negative); Clarity Clear (Clear); Glucose, Urine (Dipstick) Normal (Negative); Leukocyte Negative Leu/uL (Negative); Nitrite Negative (Negative); Protein, Urine (Dipstick) Negative (Neg-Trace); Urobilinogen Normal mg/dL (Less than 2)
== END 2020-01-29 23:11 | disposition home or self-care (01) ==
LOC: ERS 19:38
DX: F41.9 Anxiety disorder, unspecified (principal); R11.0 Nausea; I48.91 Unspecified atrial fibrillation; I13.0 Hypertensive heart and chronic kidney disease with heart failure and stage 1 through stage 4 chronic kidney disease, or unspecified chronic kidney disease; I50.9 Heart failure, unspecified; N18.9 Chronic kidney disease, unspecified; I25.10 Atherosclerotic heart disease of native coronary artery without angina pectoris; I25.2 Old myocardial infarction; M06.9 Rheumatoid arthritis, unspecified; E78.5 Hyperlipidemia, unspecified; E03.9 Hypothyroidism, unspecified; Z87.891 Personal history of nicotine dependence; Z79.899 Other long term (current) drug therapy
CPT/HCPCS: 71045; 80053; 81003; 82550; 83690; 84484; 85025; 93005; 96361; 96374; 96375; J2060; J2405

== ENCOUNTER 2020-01-31 11:49 | Outpatient (CLI) | payer MEDICARE, OTHER ==
[2020-01-31 13:04] LABS: PTT 28.6 SEC (22.9-36.1); Prothrombin Time 12.8 SEC (12.0-14.7)
[2020-01-31 13:17] LABS: Anion Gap 12 mmol/L (10-20); BUN (Urea Nitrogen) 21 mg/dL (8.4-25.7); Calc. Creatinine Clearance 0 mL/min (70-130); Calcium 9.6 mg/dL (7.8-10.44); Carbon Dioxide 27 mmol/L (23-31); Chloride 102 mmol/L (98-107); Estimated GFR-MDRD 51; Glucose 93 mg/dL (83-110); Potassium 4.4 mmol/L (3.5-5.1); Sodium 137 mmol/L (136-145)
[2020-01-31 17:22] LABS: SARS-CoV-2 MS2 Positive; SARS-CoV-2 N Gene Negative; SARS-CoV-2 S Gene Negative; SARS-CoV-2 orf1ab Negative
== END 2020-01-31 11:50 | disposition home or self-care (01) ==
LOC: LABBT 11:49
PROVIDERS: ATTEND Internal Medicine Cardiovascular Disease
DX: Z01.812 Encounter for preprocedural laboratory examination (principal); Z11.59 Encounter for screening for other viral diseases
CPT/HCPCS: 80048; 85610; 85730; U0002; 87635; U0003

== ENCOUNTER 2020-02-03 05:33 | Day surgery (SDC) | payer MEDICARE ==
[2020-01-31 12:05] VITALS: BMI 26.6
[2020-02-03] MEDS ORDERED: Fentanyl 100 MCG/2 ML VIAL ONE (07:57)
== END 2020-02-03 13:10 | disposition home or self-care (01) ==
LOC: CCL 05:33
PROVIDERS: ATTEND Internal Medicine Cardiovascular Disease
PROC: 4A023N7 Measurement of Cardiac Sampling and Pressure, Left Heart, Percutaneous Approach (ICD-10-PCS; principal; 2020-02-03)
PROC: B2111ZZ Fluoroscopy of Multiple Coronary Arteries using Low Osmolar Contrast (ICD-10-PCS; 2020-02-03)
PROC: B2181ZZ Fluoroscopy of Left Internal Mammary Bypass Graft using Low Osmolar Contrast (ICD-10-PCS; 2020-02-03)
PROC: B2131ZZ Fluoroscopy of Multiple Coronary Artery Bypass Grafts using Low Osmolar Contrast (ICD-10-PCS; 2020-02-03)
PROC: B3101ZZ Fluoroscopy of Thoracic Aorta using Low Osmolar Contrast (ICD-10-PCS; 2020-02-03)
DX: I25.10 Atherosclerotic heart disease of native coronary artery without angina pectoris (principal); I25.810 Atherosclerosis of coronary artery bypass graft(s) without angina pectoris; I25.82 Chronic total occlusion of coronary artery; I71.4 Abdominal aortic aneurysm, without rupture; I13.0 Hypertensive heart and chronic kidney disease with heart failure and stage 1 through stage 4 chronic kidney disease, or unspecified chronic kidney disease; N18.3 Chronic kidney disease, stage 3 (moderate); I50.22 Chronic systolic (congestive) heart failure; F41.9 Anxiety disorder, unspecified; E78.5 Hyperlipidemia, unspecified; M19.90 Unspecified osteoarthritis, unspecified site; I25.2 Old myocardial infarction; J44.9 Chronic obstructive pulmonary disease, unspecified; I48.0 Paroxysmal atrial fibrillation; E03.9 Hypothyroidism, unspecified; G47.33 Obstructive sleep apnea (adult) (pediatric); I47.2 Ventricular tachycardia; I73.9 Peripheral vascular disease, unspecified; Z87.891 Personal history of nicotine dependence; Z79.02 Long term (current) use of antithrombotics/antiplatelets; Z79.899 Other long term (current) drug therapy; Z88.1 Allergy status to other antibiotic agents; Z88.8 Allergy status to other drugs, medicaments and biological substances; Z95.810 Presence of automatic (implantable) cardiac defibrillator
CPT/HCPCS: 76942; 93455; 93567; 99152; 99153; C1769; J1644; J3010

== ENCOUNTER 2020-02-29 08:42 | Outpatient (CLI) | payer MEDICARE, OTHER ==
--- NOTE | 2020-02-29 10:13 | CT ---
CT ANGIOGRAM ABDOMEN WITH AND WITHOUT CONTRAST (Computed tomographic angiography, abdominal aorta with contrast material, and imaging postprocessing ) DATE: 02/29/2020 HISTORY: 79-year-old male follow-up abdominal aortic aneurysm. COMPARISON: 12/05/2019 TECHNIQUE: Precontrast scan acquisition from lung bases to iliac crests. IV injection of iodinated contrast. Arterial bolus chasing technique. Postcontrast scan acquisition from lung bases to iliac crests. 3-D MIP reconstructions. FINDINGS: Interval further collapse of the anterior half of the burst fracture of L1, now greater than 75% loss of height anteriorly. Vertebroplasty cement again noted at L1. Mild bony retropulsion of inferior endplate unchanged. Old burst fracture of L3 with at least 75% loss of height, and mild bony retropulsion of superior end plate causing significant central spinal canal stenosis. Unchanged. Vertebroplasty cement again noted. Old burst fracture of L4 with vertebroplasty cement, approximately 75% loss of height, unchanged. Interval improvement in bibasilar subsegmental atelectasis. No pleural effusion or consolidation at l mg bases. Cardiomegaly. Ectasia, tortuosity, and extensive calcified atheromatous plaque throughout entire abdominal aorta. C alcified plaque also involving proximal portions of celiac artery, superior mesenteric artery, bilateral renal arteries, bilateral common iliac arteries, and bilateral internal and external iliac arteries. Severe stenosis at origin of left renal artery. At inferior aspect of origin of left renal artery, th e previously described 1.6 x 2.1 cm saccular aneurysm arising from the left side of the abdominal aorta with chronic mural partial thrombus, is unchanged. The previously described 2.1 x 2.7 cm saccular aneurysm protruding from the lateral aspect of the rig ht side of the aorta slightly inferior to the origin of the right renal artery, with mild partial chronic mural thrombus, is unchanged. Caudal to this, centered at approximately the L3 level, the previously described 5.6 x 4.4 cm fusifor m aneurysm of the abdominal aorta measures approximately 5.7 x 4.6 cm today, but allowing for slight differences in cursor placement, is probably stable. Caudal to that, an approximately 5.1 x 4.6 cm fusiform distal abdominal aortic aneurysm appears minim ally larger than before. This difference may or may not be technical. There are additional minor findings that are unchanged, all described in previous report.. IMPRESSION: 1) multiple infrarenal abdominal aortic aneurysm, both saccular and fusiform. There has been no inter иван treatment since the previous CT 3 months ago. 2) questionable slight interval growth of the most caudal fusiform abdominal aortic aneurysm. 3) no other interval change. 4) several old burst fractures of lumbar spine
[2020-02-29] MEDS ORDERED: Iopamidol 370 76% 100 ML VIAL ONE (11:37)
== END 2020-02-29 08:43 | disposition home or self-care (01) ==
LOC: CT 08:42
PROVIDERS: ATTEND Internal Medicine Cardiovascular Disease
DX: I71.4 Abdominal aortic aneurysm, without rupture (principal)
CPT/HCPCS: 74175; 82565; Q9967

== ENCOUNTER 2020-04-27 16:24 | Emergency (ER) | payer MEDICARE ==
[2020-04-27 16:56] LABS: Bilirubin Negative (Negative); Blood, Urine Negative (Negative); Clarity Clear (Clear); Glucose, Urine (Dipstick) Normal (Negative); Ketone, Urine Negative (Negative); Leukocyte Negative Leu/uL (Negative); Nitrite Negative (Negative); Protein, Urine (Dipstick) Negative (Neg-Trace); Specific Gravity, Urine 1.015 (1.002-1.036); Urobilinogen Normal mg/dL (Less than 2); pH, Urine 6.5 (5.0-9.0)
== END 2020-04-27 19:30 | disposition home or self-care (01) ==
LOC: ERS 16:24
DX: R14.0 Abdominal distension (gaseous) (principal); I13.0 Hypertensive heart and chronic kidney disease with heart failure and stage 1 through stage 4 chronic kidney disease, or unspecified chronic kidney disease; I50.9 Heart failure, unspecified; N18.9 Chronic kidney disease, unspecified; I25.2 Old myocardial infarction; E78.5 Hyperlipidemia, unspecified; I25.10 Atherosclerotic heart disease of native coronary artery without angina pectoris; E03.9 Hypothyroidism, unspecified; Z87.891 Personal history of nicotine dependence
CPT/HCPCS: 81003; 99284

== ENCOUNTER 2020-05-05 14:04 | Observation (INO) | payer MEDICARE, OTHER ==
[2020-05-05 14:30] LABS: #Lymphocytes 0.8 thou/uL (1.20-3.40); #Monocytes 0.5 thou/uL (0.11-0.59); #Neutrophils 4.1 thou/uL (1.40-6.50); %Basophils 0.2 % (0.0-1.0); %Eosinophils 0.9 % (0.0-10.0); %Lymphocytes 14.6 % (21.0-51.0); %Monocytes 9.3 % (0.0-10.0); %Neutrophils 75.1 % (42.0-75.0); Hemoglobin 12.2 g/dL (14.0-18.0); Mean Corpuscular HGB CONC 32.8 g/dL (32.0-36.0); Mean Corpuscular Hemoglobin 31.9 pg (27.0-31.0); Mean Corpuscular Volume 97.2 fL (78.0-98.0); Mean Platelet Volume 7.5 fL (7.4-10.4); Platelet Count 175 thou/uL (130-400); RBC Distribution Width 14.3 % (11.5-14.5); Red Blood Cell (RBC) Count 3.82 mill/uL (4.70-6.10); White Blood Cell (WBC) Count 5.5 thou/uL (4.8-10.8)
[2020-05-05 14:53] LABS: ALT (SGPT) 47 U/L (8-55); AST (SGOT) 31 U/L (5-34); Albumin 4.3 g/dL (3.4-4.8); Alkaline Phosphatase 74 U/L (40-110); Anion Gap 12 mmol/L (10-20); BUN (Urea Nitrogen) 20 mg/dL (8.4-25.7); Bilirubin, Total 0.7 mg/dL (0.2-1.2); Calc. Creatinine Clearance 0 mL/min (70-130); Calcium 9.2 mg/dL (7.8-10.44); Carbon Dioxide 25 mmol/L (23-31); Chloride 102 mmol/L (98-107); Estimated GFR-MDRD 69; Globulin 2.3 g/dL (2.4-3.5); Glucose 89 mg/dL (83-110); Lipase 35 U/L (8-78); Potassium 4.3 mmol/L (3.5-5.1); Protein, Total 6.6 g/dL (5.8-8.1); Sodium 135 mmol/L (136-145)
[2020-05-05] MEDS ORDERED: Aspirin Chewable 81 MG TAB ONE (15:38)
[2020-05-05] MEDS ORDERED: Nitroglycerin 2% Ointment 1 INCH/1 GM Packet ONE (15:38)
--- NOTE | 2020-05-05 16:08 | RAD ---
EXAM: CHEST ONE VIEW HISTORY: Chest pain for 2 hours. COMPARISON: 01/29/2020 FINDINGS: Triple lead left subclavian AICD device remains in place. Postoperative changes related to CABG are a gain seen. Cardiac silhouette remains mildly enlarged. Pulmonary vasculature is within normal limits. Blunting left lateral costophrenic angle is again seen and unchanged. Findings are likely due to pleural and parenchymal scarring. Lungs are otherwise clear. There is gas beneath each hemidiaphragm which is related to gas within loops of bowel. This was also seen on prior study. No ot her interval change. IMPRESSION: Stable chest without evidence of an acute cardiopulmonary process.
[2020-05-05] MEDS ORDERED: Ondansetron PF 4 MG/2 ML Vial IVP PRN (16:19)
[2020-05-05] MEDS ORDERED: Nitroglycerin 0.4 MG TAB (25 Tab Bottle) PO PRN (16:19)
[2020-05-05] MEDS ORDERED: Acetaminophen 325 MG TAB PO PRN (16:19)
[2020-05-05] MEDS ORDERED: Ondansetron ODT 4 MG TAB PO PRN (16:19)
--- NOTE | 2020-05-05 16:19 | PDOC.FPRHP ---
- History of Present Illness Chief Complaint: Chest ache History of Present Illness: Patient is an 80 year old male with a history of MIs with CABGx4 and revision CABG x 3, AICD, pacemaker, AAA, HTN, HLD, HFrEF and CKD who presented to the ED with left chest pain described as an ache without radiation. The patient reports initially the pain was a 2/10 but had mostly resolved while driving 2.5 hours to the ED. He currently rates the pain a 0/10. The patient says the pain started at 12:30pm while he was sitting in his recliner at home. He tends to sit in uncomfortable positions to alleviate the pain from his chronic buttock bed sores. He initially attributed the pain to a muscle strain but became concerned when the pain was not improved with a change in position. He says the pain does not worsen with movement or walking. He denies chills, diaphoresis, headache, vision changes, palpitations, SOB, nausea, vomiting, edema, numbness and tingling. The patient has a history of MIs in the past but says he never experienced pain. He regularly follows up with Dr. Gann (cardiology). Underwent cath in January 2020 that showed severe CAD. ED Course: Patient received nitro that did not affect pain. He also received ASA. Trop was negative. EKG showed AV paced. CXR negative. - Allergies/Adverse Reactions Allergies Allergy/AdvReac Type Severity Reaction Status Date / Time cephalexin Allergy Verified 05/05/20 19:56 duloxetine Allergy HALLUCINATI Verified 05/05/20 19:56 ONS methocarbamol Allergy Verified 05/05/20 19:56 - Home Medications Medication Instructions Recorded Confirmed Type Folic Acid 2 mg PO BID 04/01/13 05/05/20 History Methotrexate Sodium 12.5 mg PO Q7DAYS 04/01/13 05/05/20 History Atorvastatin Calcium 40 mg PO QPM 09/06/15 05/05/20 History Clopidogrel Bisulfate [Clopidogrel] 75 mg PO DAILY 12/15/15 05/05/20 History HYDROcodone/Acetaminophen 1 tab PO Q5H PRN 08/26/18 05/05/20 History [Hydrocodone-Acetamin 5-325 mg] Levothyroxine Sodium 100 mcg PO DAILY 08/26/18 05/05/20 History Ferrous Sulfate 325 mg PO BID #60 tablet 08/27/18 05/05/20 Rx Bacillus Coagulans [Digestive 2 each PO HS 01/09/19 05/05/20 History Advantage Probiotic] Calcium Carb, Citrate/Vit D3 630 mg PO BID 01/09/19 05/05/20 History [Calcium + D3 ER Tablet] Cholecalciferol (Vitamin D3) 2,000 unit PO DAILY 01/09/19 05/05/20 History [Vitamin D3] Multivitamin [Multivitamins] 1 cap PO DAILY 01/09/19 05/05/20 History Turmeric Root Extract [Turmeric 1 tab PO ASDIR 01/09/19 05/05/20 History Curcumin] Sacubitril/Valsartan 49/51 1 tab PO BID tab 07/14/19 05/05/20 Rx [Entresto 49 mg-51 mg Tablet] Nitroglycerin [Nitrostat] 0.4 mg PO Q5MIN PRN #25 tab 11/26/19 05/05/20 Rx Propylene Glycol/PEG 400/PF 1 drop EA EYE PRN PRN 11/26/19 05/05/20 History [Systane 0.3-0.4% Eye Drop] Spironolactone [Aldactone] 12.5 mg PO DAILY #30 tab 12/06/19 05/05/20 Rx ALPRAZolam [Xanax] 0.5 mg PO PRN PRN 01/31/20 05/05/20 History Amiodarone [Cordarone] 200 mg PO BID 01/31/20 05/05/20 History Ondansetron [Zofran ODT] 4 mg PO PRN PRN 01/31/20 05/05/20 History Torsemide [Demadex] 10 mg PO PRN PRN 01/31/20 05/05/20 History Bacillus Coagulans/Vitamin D3 2 each PO HS 05/05/20 05/05/20 History [Probiotic 2 Billion Gummies] Cacium Citrate 630 mg PO BID 05/05/20 05/05/20 History Cholecalciferol (Vitamin D3) 2,000 unit PO DAILY 05/05/20 05/05/20 History [Vitamin D3] Dicyclomine HCl 20 mg PO QID PRN 05/05/20 05/05/20 History - History PMHx: 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 Quit smoking cigarettes in 1980s, previously 1/2 ppd for 20 years. Quit ETOH 3 months ago, previously drank hard liquor each night. No drug use. - Review of Systems General: denies: fever/chills, fatigue Eyes: denies: eye pain, vision changes ENT: denies: nasal congestion, rhinorrhea Respiratory: denies: congestion, shortness of breath Cardiovascular: denies: chest pain, palpitation, edema Gastrointestinal: denies: nausea, vomiting, abdominal pain Genitourinary: denies: dysuria, polyuria Skin: denies: rashes, jaundice Musculoskeletal: denies: pain, tenderness Neurological: denies: syncope, weakness Psychological: denies: anxiety, depression - Vital signs BP: [97/57] HR: [70] RR: [18] Tmax: [98] Pox: [99]% on [RA] Wt: [83.9kg] - Physical Exam Constitutional: NAD, awake, alert and oriented HEENT: normocephalic and atraumatic, no scleral icterus Neck: supple, trachea midline Chest: no-tender to palpation, no lesions -Chest: AICD in place Heart: RRR, no murmurs/rubs/gallops, pulses present, no edema Lungs: CTAB, no respiratory distress Abdomen: soft, non-tender, bowel sounds present Musculoskeletal: normal structure, ROM grossly normal Neurological: no focal deficit, CN II-XII intact Skin: no jaundice -Skin: Erythema noted on left leg, chronic 2/2 venous graft for cabg. Midline sternal incision scar 2/2 cabg. Heme/Lymphatic: no unusual bruising or bleeding, no purpura Psychiatric: normal mood and affect -Psychiatric: A&O x 4 FMR H&P: Results - Labs Result Diagrams: 05/06/20 03:47 05/06/20 03:47 Lab results: WBC 5.5 thou/uL (4.8-10.8) 05/05/20 14:17 Hgb 12.2 g/dL (14.0-18.0) L 05/05/20 14:17 Hct 37.1 % (42.0-52.0) L 05/05/20 14:17 MCV 97.2 fL (78.0-98.0) 05/05/20 14:17 Plt Count 175 thou/uL (130-400) 05/05/20 14:17 Neutrophils % 75.1 % (42.0-75.0) H 05/05/20 14:17 Sodium 135 mmol/L (136-145) L 05/05/20 14:17 Potassium 4.3 mmol/L (3.5-5.1) 05/05/20 14:17 Chloride 102 mmol/L (98-107) 05/05/20 14:17 Carbon Dioxide 25 mmol/L (23-31) 05/05/20 14:17 BUN 20 mg/dL (8.4-25.7) 05/05/20 14:17 Creatinine 1.04 mg/dL (0.7-1.3) 05/05/20 14:17 Glucose 89 mg/dL (83-110) 05/05/20 14:17 Calcium 9.2 mg/dL (7.8-10.44) 05/05/20 14:17 Total Bilirubin 0.7 mg/dL (0.2-1.2) 05/05/20 14:17 AST 31 U/L (5-34) 05/05/20 14:17 ALT 47 U/L (8-55) 05/05/20 14:17 Alkaline Phosphatase 74 U/L (40-110) 05/05/20 14:17 Serum Total Protein 6.6 g/dL (5.8-8.1) 05/05/20 14:17 Albumin 4.3 g/dL (3.4-4.8) 05/05/20 14:17 Lipase 35 U/L (8-78) 05/05/20 14:17 - EKG Interpretation EKG: AV paced FMR H&P: A/P - Plan 1. Stable angina Patient has extensive cardiac hx with cabg x 4 with revision x 3 and hx AAA. HEART score of 6. Trop neg (0.022 -> 0.015). CXR neg. Pain likely due to muscle strain vs. CAD. Currently pain free. Given history, will admit to tele on obs. -Monitor on tele -Restart home meds after med rec -Trend trop -Strict I&Os due to hx CHF -Fall precautions -Palliative consult -EKG PRN if chest pain reoccurs -Nitro PRN for pain -Zofran PRN for nausea -Consider cardio consult in the am due to cardiac history 2. Systolic HFeEF BNP 255.8. Previously 112.2 during last admission in 12/15. -Resume home meds -Monitor for fluid overload 3. Hx Afib and ventricular arrythmias with AICD, pacemaker -Monitor on tele 4. AAA -Patient reports recent imaging for surveillance. 5. HTN BP ranged 90s-110s in ED. -Hold home meds if BP becomes hypotensive 6. HLD -Obtain lipid panel -Continue home meds 7. CKD Creatinine 1.04 in ED, appears to be at baseline -Monitor with am labs -Renally dose medications as indicated PCP: out of [facility] call Code: FULL PPx: Lovenox Dispo: Obs tele. Expected LOS < 2 days. FMR H&P: Upper Level - Plan Date/Time: 05/05/20 1619 I, Katie Ribeiro MD, have evaluated this patient and agree with findings/plan as outlined by international editorial producer resident. Pertinent changes/additions are listed here. This is an 80yo M w/ PMH of CKD, CAD, HFrEF, HLD, HTN and prior CO s/p CABG, AICD, and pacemaker placement who presents to the ER with CC of chest pain. The patient states chest pain started around 1200 and lasted a few hours. He states that the chest pain is achy and located in left chest. Does not radiate. No SOB , nausea, vomiting, headache, vision changes. He states that by the time he got to the ER his chest pain had mostly resolved. At its worst pain was 2/10 and now 0/10. He states that he was sitting on his recliner and thinks that he may have been sitting in a position that made his muscle ache. Denies any numbness/ tingling in extremities. Able to ambulate without worsened chest pain. See international editorial producer note for full HPI/details. In the ER, patients trop was neg, CXR neg, EKG showed AV paced. The patient received nitro and ASA. Exam unremarkable except for midline scar on ant chest and pacemaker placement L chest. No TTP. No JVD. LLE erythematous on heath, trace edema in BL LE. We will admit the patient to tele, obs for continued monitoring due to hx. Trend trops. BNP pending. Suspect chest pain likely due to CAD vs MSK with significant cardiac hx. HEART score of 6. Will have nitro PRN. Can consider cardiology consult as patient had cath procedure showing severe CAD in January and is s/p 4 vessel CABG and repeat 3 vessel. Hx of AAA with recent imaging in February. Unlikely source of current pain. Continue medications for chronic conditions. Case to be discussed with Dr. Santiago Addendum - Attending - Attending Attestation Date/Time: 05/06/20 3728 I personally evaluated the patient and discussed the management with Dr. Rico/Quintin. I agree with the History, Examination, Assessment and Plan documented above with any addition or exceptions noted below.
[2020-05-05 17:52] LABS: Cardiac Risk 2.3 (Less than 4.5)
[2020-05-05 17:56] LABS: Troponin I 0.015 ng/mL (< 0.028)
[2020-05-05 17:57] LABS: Hemoglobin A1c 4.5 % (4.0-6.0)
[2020-05-05] MEDS ORDERED: hydrOXYzine 25 MG TAB PO PRN (18:10)
[2020-05-05 18:12] LABS: PTT 29.5 sec (22.9-36.1); Prothrombin Time 12.9 sec (12.0-14.7)
[2020-05-05 20:12] VITALS: BMI 26.4
[2020-05-05 21:07] LABS: Troponin I 0.012 ng/mL (< 0.028)
[2020-05-06 04:03] LABS: #Eosinphils 0.1 thou/uL (0.0-0.7); #Lymphocytes 0.7 thou/uL (1.20-3.40); #Monocytes 0.4 thou/uL (0.11-0.59); %Basophils 0.3 % (0.0-1.0); %Eosinophils 2.1 % (0.0-10.0); %Lymphocytes 16.4 % (21.0-51.0); %Monocytes 10.3 % (0.0-10.0); %Neutrophils 70.8 % (42.0-75.0); Hemoglobin 11.2 g/dL (14.0-18.0); Mean Corpuscular HGB CONC 32.2 g/dL (32.0-36.0); Mean Corpuscular Hemoglobin 31.5 pg (27.0-31.0); Mean Corpuscular Volume 97.6 fL (78.0-98.0); Mean Platelet Volume 7.6 fL (7.4-10.4); Platelet Count 154 thou/uL (130-400); Red Blood Cell (RBC) Count 3.57 mill/uL (4.70-6.10); White Blood Cell (WBC) Count 4.2 thou/uL (4.8-10.8)
[2020-05-06 04:27] LABS: Anion Gap 10 mmol/L (10-20); BUN (Urea Nitrogen) 17 mg/dL (8.4-25.7); Calc. Creatinine Clearance 78 mL/min (70-130); Calcium 8.9 mg/dL (7.8-10.44); Carbon Dioxide 23 mmol/L (23-31); Chloride 106 mmol/L (98-107); Estimated GFR-MDRD 82; Glucose 79 mg/dL (83-110); Potassium 4.4 mmol/L (3.5-5.1); Sodium 135 mmol/L (136-145)
[2020-05-06] MEDS ORDERED: HYDROcodone/Acetaminophen 5/325 mg Tablet PO PRN (06:40)
[2020-05-06] MEDS ORDERED: Dicyclomine 20 MG TAB PO PRN (06:40)
--- NOTE | 2020-05-06 06:49 | PDOC.FM ---
- Subjective Subjective: Patient says his chest pain resolved by the time he arrived to the ED and has not recurred. He denies lightheadedness, dizziness, headache, vision changes, nausea, SOB, abdominal pain and edema. - Objective MAR Reviewed: Yes Vital Signs & Weight: Vital Signs (12 hours) Temp Pulse Resp BP Pulse Ox 05/06/20 04:00 98.0 F 71 16 107/57 L 98 05/06/20 00:00 86/52 L 05/05/20 20:04 99 05/05/20 20:00 98.8 F 81 18 104/56 L 91 L Weight Weight 83.597 kg I&O: 05/04/20 05/05/20 05/06/20 06:59 06:59 06:59 Intake Total 580 Output Total 1675 Balance -1095 Result Diagrams: 05/06/20 03:47 05/06/20 03:47 Phys Exam - Physical Examination Constitutional: NAD HEENT: moist MMs, sclera anicteric Neck: no nodes, full ROM Respiratory: no wheezing, clear to auscultation bilateral Cardiovascular: RRR, no significant murmur Gastrointestinal: soft, positive bowel sounds Musculoskeletal: no edema, pulses present Neurological: non-focal, moves all 4 limbs Lymphatic: no nodes Psychiatric: normal affect, A&O x 3 Skin: no rash, normal turgor Dx/Plan - Plan Plan: 1. Atypical chest pain, resolved 2/2 muscle strain vs. CAD Patient has extensive cardiac hx with cabg x 4 with revision x 3 and hx AAA. HEART score of 6. Trop neg (0.022 -> 0.015-> 0.012). CXR neg. Pain likely due to muscle strain vs. CAD. Currently pain free. Given history, was admit to tele on obs. -No events on tele -Strict I&Os due to hx CHF -Fall precautions -EKG PRN if chest pain reoccurs -Nitro PRN for pain -Zofran PRN for nausea -Will follow up outpatient with Dr. Gann (curb attendant) 2. Systolic HFeEF BNP 255.8. Previously 112.2 during last admission in 12/15. -Resume home meds -Monitor for fluid overload 3. Hx Afib and ventricular arrythmias with AICD, pacemaker -Monitor on tele 4. AAA -Patient reports recent imaging for surveillance. 5. HTN BP ranged 80s-100s systolic overnight. Patient reports this is his baseline with max BP of 110. -Held home meds due to hypotension 6. HLD -Continue home meds 7. CKD Creatinine 1.04 in ED, appears to be at baseline. -Renally dose medications as indicated PCP: out [facility] call Code: FULL PPx: Lovenox Dispo: Stable for d/c home with understand that patient will have close follow up with Dr. Gann (curb attendant) within 1-2 weeks. Addendum - Attending - Attending Attestation Date/Time: 05/06/20 1512 I personally evaluated the patient and discussed the management with Dr. Rico. I agree with the History, Examination, Assessment and Plan documented above with any addition or exceptions noted below. Patient with extensive CAD s/p 2 CABG here with chest pain. It has not recurred since admission. He reports feeling well. Reports his current blood pressure is overall normal for him. Likely discuss his case with cardiology mooner but hopeful to discharge home today with outpatient follow up.
[2020-05-06] MEDS ORDERED: Polyethylene Glycol OPTH DROP 15 ML BOT EA EYE PRN (06:54)
[2020-05-06] MEDS ORDERED: Levothyroxine Sodium 100 MCG TAB PO SCH (07:00)
[2020-05-06] MEDS ORDERED: Losartan 25 MG TAB PO SCH (09:00)
[2020-05-06] MEDS ORDERED: Ferrous Sulfate 325 MG TAB PO SCH (09:00)
[2020-05-06] MEDS ORDERED: CALCIUM CITRATE PO SCH (09:00)
[2020-05-06] MEDS ORDERED: Prevnar 13-Val Conj/PF 0.5 ML SYRINGE IM ONE (09:00)
[2020-05-06] MEDS ORDERED: Lactinex Tablet PO SCH (09:00)
[2020-05-06] MEDS ORDERED: Enoxaparin Sodium 40 MG/0.4 ML SYRINGE SC SCH (09:00)
[2020-05-06] MEDS ORDERED: Multivit, Therapeutic 1 TAB PO SCH (09:00)
[2020-05-06] MEDS ORDERED: Methotrexate Sodium 2.5 MG TAB PO SCH (09:00)
[2020-05-06] MEDS ORDERED: Folic Acid 1 MG TAB PO SCH (09:00)
[2020-05-06] MEDS ORDERED: Sacubitril 49 MG/Valsartan 51 MG TABLET PO SCH (09:00)
[2020-05-06] MEDS ORDERED: Clopidogrel Bisulfate 75 MG TAB PO SCH (09:00)
[2020-05-06] MEDS ORDERED: Cholecalciferol 1,000 UNITS (25 MCG) TAB PO SCH (09:00)
[2020-05-06 09:26] VITALS: BP 99/54; TEMP 97.7
[2020-05-06 12:25] LABS: SARS-CoV-2 MS2 Positive; SARS-CoV-2 N Gene Negative; SARS-CoV-2 S Gene Negative; SARS-CoV-2 by NAA Not Detected (NotDetected); SARS-CoV-2 orf1ab Negative
[2020-05-06] MEDS ORDERED: TURMERIC ROOT EXTRACT PO SCH (17:00)
[2020-05-06] MEDS ORDERED: Atorvastatin Calcium 40 MG TAB PO SCH (21:00)
[2020-05-07] MEDS ORDERED: Levothyroxine Sodium 100 MCG TAB PO SCH (06:00)
--- NOTE | 2020-05-08 14:25 | DIS ---
DATE OF ADMISSION: 05/05/2020 DATE OF DISCHARGE: 05/06/2020 RESIDENT: Fiorella Rico MD ADMITTING ATTENDING: Mikhail Santiago MD DISCHARGE ATTENDING: Mikhail Santiago MD CONSULTS: None. PROCEDURES PERFORMED: None. PRIMARY DIAGNOSIS: Atypical chest pain, now resolved, secondary to muscle strain versus coronary artery disease. SECONDARY DIAGNOSES: Coronary artery disease s/p CABG x 4 with revision x 3, systolic heart failure, history of atrial fibrillation and ventricular arrhythmias with AICD and pacemaker, history of abdominal aortic aneurysm, hypertension, hyperlipidemia, chronic kidney disease. DISCHARGE MEDICATIONS: 1. Methotrexate 12.5 mg p.o. q.7 days. 2. Xanax 0.5 mg p.o. p.r.n. 3. Amiodarone 200 mg p.o. b.i.d. 4. Atorvastatin 40 mg p.o. q.p.m. 5. Bacillus coagulans two tablets p.o. at bedtime. 6. Calcium carbonate 630 mg p.o. b.i.d. 7. Cholecalciferol 2000 units p.o. daily. 8. Plavix 75 mg p.o. daily. 9. Folic acid 2 mg p.o. b.i.d. 10. Dicyclomine HCL 20 mg p.o. q.i.d. p.r.n. 11. Hydrocodone-acetaminophen 1 tablet p.o. q.5 hours p.r.n. 12. Levothyroxine 100 mcg p.o. daily. 13. Multivitamin one capsule p.o. daily. 14. Zofran 4 mg p.o. p.r.n. 15. Torsemide 10 mg p.o. p.r.n. 16. Turmeric root one tablet 500 mg p.o. 17. Nitroglycerin 0.4 mg p.o. q.5 minutes p.r.n. 18. Ferrous sulfate 325 mg p.o. b.i.d. 19. Entresto one tablet p.o. b.i.d. 20. Spironolactone 12.5 mg p.o. daily. 21. Propylene glycol one drop in each eye p.r.n. DISCONTINUED MEDICATIONS: None. HISTORY OF PRESENT ILLNESS: The patient is an 80-year-old male with a history of CAD s/p MIs with CABG x 4 with revision CABG x3, who presented to the ED with left chest pain described as an ache without radiation. The patient reported the pain began when sitting in an uncomfortable position in his chair. It resolved during his 2.[address] to the ED. In the ED, the patient received nitroglycerin that did not affect his pain. Troponin was trended and remained negative. EKG showed AV pace. Chest x-ray was negative. The patient remained pain free during admission. He was noted to have episodes of hypotension with systolics in the 80s. The patient reported this was his normal. His home spironolactone, amlodipine, and torsemide were held on 05/06 morning. Blood pressure improved afterward to systolic 110s. Due to normal cardiac workup with resolution of pain, it was determined that the patient was stable to follow up outpatient with his prosthetic lab technician, Dr. Gann. He agreed with this plan and was deemed stable for discharge home on 05/06. DISPOSITION: Stable. DISCHARGE INSTRUCTIONS: 1. Location: Home. 2. Diet: Heart healthy with fluid restriction. 3. Activity: As tolerated. 4. Followup: Follow up with PCP within one week. The patient will also be seen by Dr. Gann (prosthetic lab technician) within one week. Job ID: [id number] MTDD
== END 2020-05-06 12:04 | disposition home or self-care (01) ==
LOC: ERS 14:04 → 2NO 18:56
PROVIDERS: ADMIT Student in an Organized Health Care Education/Training Program; ATTEND Student in an Organized Health Care Education/Training Program
DX: R07.89 Other chest pain (principal); I25.118 Atherosclerotic heart disease of native coronary artery with other forms of angina pectoris; I13.0 Hypertensive heart and chronic kidney disease with heart failure and stage 1 through stage 4 chronic kidney disease, or unspecified chronic kidney disease; N18.9 Chronic kidney disease, unspecified; I50.20 Unspecified systolic (congestive) heart failure; I48.91 Unspecified atrial fibrillation; E78.5 Hyperlipidemia, unspecified; I71.4 Abdominal aortic aneurysm, without rupture; Z79.899 Other long term (current) drug therapy; Z88.6 Allergy status to analgesic agent; Z88.8 Allergy status to other drugs, medicaments and biological substances; Z95.0 Presence of cardiac pacemaker; Z95.1 Presence of aortocoronary bypass graft; Z95.810 Presence of automatic (implantable) cardiac defibrillator; Z20.828 Contact with and (suspected) exposure to other viral communicable diseases
CPT/HCPCS: 71045; 80048; 80061; 83036; 83690; 83880; 84484 ×2; 85025; 85610; 85730; 93005; 96372; 99285; G0378 ×3; U0003; 36415; 80053; 84443; 87635; J1650; J8610

== ENCOUNTER 2020-05-23 00:16 | Emergency (ER) | payer MEDICARE ==
[2020-05-23 00:44] LABS: #Lymphocytes 1.1 thou/uL (1.20-3.40); #Monocytes 0.6 thou/uL (0.11-0.59); #Neutrophils 3.6 thou/uL (1.40-6.50); %Basophils 0.5 % (0.0-1.0); %Eosinophils 0.7 % (0.0-10.0); %Lymphocytes 20.7 % (21.0-51.0); %Monocytes 10.5 % (0.0-10.0); %Neutrophils 67.6 % (42.0-75.0); Mean Corpuscular HGB CONC 33.1 g/dL (32.0-36.0); Mean Corpuscular Hemoglobin 32.1 pg (27.0-31.0); Mean Corpuscular Volume 97.2 fL (78.0-98.0); Mean Platelet Volume 7.3 fL (7.4-10.4); Platelet Count 175 thou/uL (130-400); RBC Distribution Width 13.8 % (11.5-14.5); Red Blood Cell (RBC) Count 3.72 mill/uL (4.70-6.10); White Blood Cell (WBC) Count 5.3 thou/uL (4.8-10.8)
[2020-05-23 01:06] LABS: ALT (SGPT) 67 U/L (8-55); AST (SGOT) 39 U/L (5-34); Albumin 4.3 g/dL (3.4-4.8); Alkaline Phosphatase 77 U/L (40-110); Anion Gap 11 mmol/L (10-20); BUN (Urea Nitrogen) 18 mg/dL (8.4-25.7); Bilirubin, Total 0.7 mg/dL (0.2-1.2); CK (CPK) 29 U/L (30-200); Calc. Creatinine Clearance 0 mL/min (70-130); Calcium 9.2 mg/dL (7.8-10.44); Carbon Dioxide 29 mmol/L (23-31); Chloride 105 mmol/L (98-107); Estimated GFR-MDRD 56; Glucose 97 mg/dL (83-110); Potassium 4.7 mmol/L (3.5-5.1); Protein, Total 6.3 g/dL (5.8-8.1); Sodium 140 mmol/L (136-145)
[2020-05-23 04:10] LABS: Troponin I Less than 0.010 ng/mL (< 0.028)
--- NOTE | 2020-05-23 07:36 | RAD ---
Portable frontal chest radiograph: 05/23/2020 COMPARISON: 05/05/2020 HISTORY: Chest pain FINDINGS: Stable heart and mediastinal contours, transvenous pacing device, midline sternotomy wires, mediastinal clips, and atherosclerotic calcification of the aortic arch. No focal consolidation or alveolar edema. IMPRESSION: No acute findings.
--- NOTE | 2020-05-26 11:54 | EKG ---
Test Reason : Blood Pressure : / mmHG Vent. Rate : 073 BPM Atrial Rate : 076 BPM P-R Int : 000 ms QRS Dur : 190 ms QT Int : 490 ms P-R-T Axes : 000 -42 080 degrees QTc Int : 539 ms AV sequential or dual chamber electronic pacemaker Confirmed by GLENYS ERVIN ([id number]), manuscript editor KIERAN HARRY ([id number]) on 05/26/2020 11:53:39 AM Referred By: Confirmed By:GLENYS ERVIN
== END 2020-05-23 05:40 | disposition home or self-care (01) ==
LOC: ERS 00:16
DX: R07.9 Chest pain, unspecified (principal); I25.10 Atherosclerotic heart disease of native coronary artery without angina pectoris; I11.0 Hypertensive heart disease with heart failure; I50.9 Heart failure, unspecified; I25.2 Old myocardial infarction; I48.91 Unspecified atrial fibrillation; E78.5 Hyperlipidemia, unspecified; M19.90 Unspecified osteoarthritis, unspecified site; E03.9 Hypothyroidism, unspecified; M06.9 Rheumatoid arthritis, unspecified; Z95.1 Presence of aortocoronary bypass graft; Z87.891 Personal history of nicotine dependence; Z79.899 Other long term (current) drug therapy
CPT/HCPCS: 36415; 71045; 80053; 82550; 84484; 85025; 93005

== ENCOUNTER 2020-10-01 10:07 | Outpatient (CLI) | payer MEDICARE ==
--- NOTE | 2020-10-01 14:20 | ULT ---
GALLBLADDER ULTRASOUND: INDICATION: Right upper quadrant pain. FINDINGS: Gallbladder has a normal sonographic appearance. No evidence of gallstones. Common bile duct normal caliber as visualized. The liver is only partially visualized due to overlying bowel gas. Liver unremarkable as visualized. The technologist describes a negative Cavanaugh's sign. Pancreas is obscured. The right kidney is imaged and is unremarkable. IMPRESSION: Unremarkable gallbladder ultrasound. POS: AGW
== END 2020-10-01 10:08 | disposition home or self-care (01) ==
LOC: BICULT 10:07
PROVIDERS: ATTEND Internal Medicine Gastroenterology
DX: R94.5 Abnormal results of liver function studies (principal)
CPT/HCPCS: 76705

== ENCOUNTER 2020-11-02 16:23 | Emergency (ER) | payer MEDICARE ==
--- NOTE | 2020-11-02 17:23 | RAD ---
RADIOGRAPH CHEST 1 VIEW: DATE: 11/02/2020 HISTORY: 80-year-old male with productive cough FINDINGS: The thoracic aorta is tortuous and ectatic. There is no evidence of airspace density, pulmonary edema , or pneumothorax. The lateral costophrenic angles are not effaced. Signs of previous CABG. Left subclavian AICD. IMPRESSION: 1) No acute pulmonary findings. 2) ectasia of thoracic aorta.
== END 2020-11-02 17:55 | disposition home or self-care (01) ==
LOC: ERS 16:23
DX: R42 Dizziness and giddiness (principal); T48.6X5A Adverse effect of antiasthmatics, initial encounter; I11.0 Hypertensive heart disease with heart failure; I50.9 Heart failure, unspecified; I25.10 Atherosclerotic heart disease of native coronary artery without angina pectoris; I25.2 Old myocardial infarction; I48.91 Unspecified atrial fibrillation; M19.90 Unspecified osteoarthritis, unspecified site; E78.5 Hyperlipidemia, unspecified; E03.9 Hypothyroidism, unspecified; M06.9 Rheumatoid arthritis, unspecified; Z87.891 Personal history of nicotine dependence
CPT/HCPCS: 71045; 93005

== ENCOUNTER 2021-03-03 11:59 | Observation (INO) | payer MEDICARE ==
[2021-03-03 12:24] LABS: #Lymphocytes 0.7 thou/uL (1.20-3.40); #Monocytes 0.5 thou/uL (0.11-0.59); #Neutrophils 3.9 thou/uL (1.40-6.50); %Basophils 0.1 % (0.0-1.0); %Eosinophils 0.8 % (0.0-10.0); %Lymphocytes 13.7 % (21.0-51.0); %Monocytes 9.9 % (0.0-10.0); %Neutrophils 75.6 % (42.0-75.0); Hemoglobin 12.3 g/dL (14.0-18.0); Mean Corpuscular Hemoglobin 33.8 pg (27.0-31.0); Mean Corpuscular Volume 99.6 fL (78.0-98.0); Mean Platelet Volume 7.2 fL (7.4-10.4); Platelet Count 160 thou/uL (130-400); RBC Distribution Width 13.7 % (11.5-14.5); Red Blood Cell (RBC) Count 3.63 mill/uL (4.70-6.10); White Blood Cell (WBC) Count 5.1 thou/uL (4.8-10.8)
[2021-03-03 12:46] LABS: ALT (SGPT) 22 U/L (8-55); AST (SGOT) 20 U/L (5-34); Albumin 4.4 g/dL (3.4-4.8); Alkaline Phosphatase 72 U/L (40-110); Anion Gap 13 mmol/L (10-20); BUN (Urea Nitrogen) 23 mg/dL (8.4-25.7); Bilirubin, Total 0.9 mg/dL (0.2-1.2); Calc. Creatinine Clearance 0 mL/min (70-130); Calcium 9.4 mg/dL (7.8-10.44); Carbon Dioxide 29 mmol/L (23-31); Chloride 103 mmol/L (98-107); Globulin 2.2 g/dL (2.4-3.5); Glucose 75 mg/dL (83-110); Lipase 34 U/L (8-78); Potassium 3.9 mmol/L (3.5-5.1); Protein, Total 6.6 g/dL (5.8-8.1); Sodium 141 mmol/L (136-145)
[2021-03-03] MEDS ORDERED: Ondansetron ODT 4 MG TAB SL PRN (16:45)
[2021-03-03] MEDS ORDERED: Ondansetron PF 4 MG/2 ML Vial IVP PRN (16:45)
[2021-03-03] MEDS ORDERED: Acetaminophen 650 MG Suppository PR PRN (17:56)
[2021-03-03] MEDS ORDERED: Acetaminophen 325 MG TAB PO PRN (17:56)
[2021-03-03] MEDS ORDERED: Magnesium 2 GM/50 ML 2 GM in Premix Bag 1 BAG IVPB SCH (18:00)
[2021-03-03 18:46] LABS: Lactic Acid 1.1 mmol/L (0.5-2.2)
[2021-03-03] MEDS: Amiodarone 200 MG TAB PO SCH (20:38)
[2021-03-03] MEDS: Sacubitril 49 MG/Valsartan 51 MG TABLET PO SCH (20:38)
[2021-03-03] MEDS: Mexiletine HCl 150 MG CAP PO SCH (20:38)
[2021-03-03 22:06] LABS: Bilirubin Negative (Negative); Blood, Urine Negative (Negative); Clarity Clear (Clear); Glucose, Urine (Dipstick) Negative (Negative); Ketone, Urine Negative (Negative); Leukocyte Negative (Negative); Nitrite Negative (Negative); Protein, Urine (Dipstick) Negative (Neg-Trace); Urobilinogen 0.2 mg/dL (Less than 2)
[2021-03-03 22:07] LABS: Urine Culture Reflex No No
[2021-03-03 22:13] LABS: Bacteria/HPF None Seen HPF (None Seen); RBC/HPF 0-3 HPF (0-3); Squamous Epithelial None Seen HPF (0-3); WBC/HPF 0-3 HPF (0-3)
[2021-03-03 23:44] LABS: SARS-CoV-2 PCR by NAA Not Detected (NotDetected)
[2021-03-04 05:14] LABS: #Eosinphils 0.1 thou/uL (0.0-0.7); #Lymphocytes 0.8 thou/uL (1.20-3.40); #Monocytes 0.7 thou/uL (0.11-0.59); #Neutrophils 4.1 thou/uL (1.40-6.50); %Basophils 0.3 % (0.0-1.0); %Lymphocytes 14.1 % (21.0-51.0); %Monocytes 12.9 % (0.0-10.0); %Neutrophils 71.8 % (42.0-75.0); Hemoglobin 11.1 g/dL (14.0-18.0); Mean Corpuscular HGB CONC 32.2 g/dL (32.0-36.0); Mean Corpuscular Hemoglobin 31.9 pg (27.0-31.0); Mean Corpuscular Volume 99.1 fL (78.0-98.0); Mean Platelet Volume 7.1 fL (7.4-10.4); Platelet Count 165 thou/uL (130-400); RBC Distribution Width 13.7 % (11.5-14.5); Red Blood Cell (RBC) Count 3.49 mill/uL (4.70-6.10); White Blood Cell (WBC) Count 5.7 thou/uL (4.8-10.8)
[2021-03-04 05:34] LABS: Anion Gap 11 mmol/L (10-20); BUN (Urea Nitrogen) 20 mg/dL (8.4-25.7); Calc. Creatinine Clearance 62 mL/min (70-130); Calcium 9.3 mg/dL (7.8-10.44); Carbon Dioxide 28 mmol/L (23-31); Cardiac Risk 2.8 (Less than 4.5); Chloride 104 mmol/L (98-107); Cholesterol 104 mg/dl (< 200 Desired); Glucose 87 mg/dL (83-110); HDL Cholesterol 37 mg/dL (>60 Neg Risk); LDL Cholesterol, Calculated 54 mg/dL; Magnesium 2.1 mg/dL (1.6-2.6); Potassium 3.7 mmol/L (3.5-5.1); Sodium 139 mmol/L (136-145); Triglycerides 67 mg/dL (Less than 150)
[2021-03-04 10:00] VITALS: BMI 27.6
[2021-03-04] MEDS: Mexiletine HCl 150 MG CAP PO SCH (10:11)
[2021-03-04] MEDS: Sacubitril 49 MG/Valsartan 51 MG TABLET PO SCH (10:11)
[2021-03-04] MEDS: Amiodarone 200 MG TAB PO SCH (10:11)
[2021-03-04 12:08] VITALS: BP 103/58; TEMP 97.4
[2021-03-05] MEDS ORDERED: Amiodarone 200 MG TAB PO SCH (09:00)
[2021-03-05] MEDS ORDERED: Aspirin 81 mg Enteric Coated Tablet PO SCH (09:00)
== END 2021-03-04 15:09 | disposition home or self-care (01) ==
LOC: ERS 11:59 → 2SW 15:01
PROVIDERS: ADMIT Internal Medicine; ATTEND Internal Medicine
DX: I47.2 Ventricular tachycardia (principal); E03.9 Hypothyroidism, unspecified; I25.10 Atherosclerotic heart disease of native coronary artery without angina pectoris; E78.5 Hyperlipidemia, unspecified; I11.0 Hypertensive heart disease with heart failure; I50.22 Chronic systolic (congestive) heart failure; I25.2 Old myocardial infarction; I48.0 Paroxysmal atrial fibrillation; M19.90 Unspecified osteoarthritis, unspecified site; G89.29 Other chronic pain; M54.9 Dorsalgia, unspecified; I73.9 Peripheral vascular disease, unspecified; M06.9 Rheumatoid arthritis, unspecified; K59.00 Constipation, unspecified; I42.0 Dilated cardiomyopathy; E87.8 Other disorders of electrolyte and fluid balance, not elsewhere classified; Z87.891 Personal history of nicotine dependence; Z79.02 Long term (current) use of antithrombotics/antiplatelets; Z79.899 Other long term (current) drug therapy; Z88.1 Allergy status to other antibiotic agents; Z88.8 Allergy status to other drugs, medicaments and biological substances; Z95.1 Presence of aortocoronary bypass graft; Z95.810 Presence of automatic (implantable) cardiac defibrillator; Z20.822 Contact with and (suspected) exposure to COVID-19
CPT/HCPCS: 71045; 71046; 80048; 80053; 80061; 81001; 83605; 83690; 83735 ×2; 83880; 84443; 84484 ×2; 85025 ×2; 93005; 96374; 99285; G0378 ×3; U0003; U0005; 36415; J3475

== ENCOUNTER 2021-05-05 12:54 | Emergency (ER) | payer MEDICARE ==
[2021-05-05 13:17] LABS: #Eosinphils 0.1 thou/uL (0.0-0.7); #Monocytes 0.7 thou/uL (0.11-0.59); #Neutrophils 3.9 thou/uL (1.40-6.50); %Basophils 0.2 % (0.0-1.0); %Eosinophils 1.6 % (0.0-10.0); %Neutrophils 68.3 % (42.0-75.0); Hemoglobin 11.6 g/dL (14.0-18.0); Mean Corpuscular HGB CONC 33.1 g/dL (32.0-36.0); Mean Corpuscular Volume 99.8 fL (78.0-98.0); Mean Platelet Volume 7.6 fL (7.4-10.4); Platelet Count 188 thou/uL (130-400); RBC Distribution Width 13.5 % (11.5-14.5); Red Blood Cell (RBC) Count 3.52 mill/uL (4.70-6.10); White Blood Cell (WBC) Count 5.7 thou/uL (4.8-10.8)
[2021-05-05 13:59] LABS: ALT (SGPT) 16 U/L (8-55); AST (SGOT) 23 U/L (5-34); Albumin 4.2 g/dL (3.4-4.8); Alkaline Phosphatase 76 U/L (40-110); Anion Gap 13 mmol/L (10-20); BUN (Urea Nitrogen) 25 mg/dL (8.4-25.7); Calc. Creatinine Clearance 0 mL/min (70-130); Calcium 9.8 mg/dL (7.8-10.44); Carbon Dioxide 27 mmol/L (23-31); Chloride 101 mmol/L (98-107); Globulin 2.7 g/dL (2.4-3.5); Glucose 79 mg/dL (83-110); Lipase 38 U/L (8-78); Potassium 4.3 mmol/L (3.5-5.1); Protein, Total 6.9 g/dL (5.8-8.1); Sodium 137 mmol/L (136-145)
[2021-05-05 17:09] LABS: Troponin I Less than 0.010 ng/mL (< 0.028)
== END 2021-05-05 17:30 | disposition home or self-care (01) ==
LOC: ERS 12:54
DX: R07.89 Other chest pain (principal); I25.10 Atherosclerotic heart disease of native coronary artery without angina pectoris; I25.2 Old myocardial infarction; I48.91 Unspecified atrial fibrillation; E78.5 Hyperlipidemia, unspecified; I11.0 Hypertensive heart disease with heart failure; I50.9 Heart failure, unspecified; M19.90 Unspecified osteoarthritis, unspecified site; E03.9 Hypothyroidism, unspecified; M06.9 Rheumatoid arthritis, unspecified; Z87.891 Personal history of nicotine dependence; Z79.02 Long term (current) use of antithrombotics/antiplatelets; Z79.899 Other long term (current) drug therapy
CPT/HCPCS: 36415; 71045; 80053; 83690; 84484; 85025; 93005

== ENCOUNTER 2021-06-17 22:58 | Observation (INO) | payer MEDICARE ==
[2021-06-17 23:38] LABS: #Eosinphils 0.1 thou/uL (0.0-0.7); #Lymphocytes 0.9 thou/uL (1.20-3.40); #Monocytes 0.6 thou/uL (0.11-0.59); %Basophils 0.2 % (0.0-1.0); %Eosinophils 1.4 % (0.0-10.0); %Lymphocytes 16.2 % (21.0-51.0); %Monocytes 11.5 % (0.0-10.0); %Neutrophils 70.7 % (42.0-75.0); Hemoglobin 12.7 g/dL (14.0-18.0); Mean Corpuscular HGB CONC 32.4 g/dL (32.0-36.0); Mean Corpuscular Hemoglobin 31.1 pg (27.0-31.0); Mean Corpuscular Volume 95.9 fL (78.0-98.0); Mean Platelet Volume 7.6 fL (7.4-10.4); Platelet Count 183 thou/uL (130-400); RBC Distribution Width 12.7 % (11.5-14.5); Red Blood Cell (RBC) Count 4.08 mill/uL (4.70-6.10); White Blood Cell (WBC) Count 5.6 thou/uL (4.8-10.8)
[2021-06-18] LABS: ALT (SGPT) 17 U/L (8-55); AST (SGOT) 19 U/L (5-34); Albumin 4.4 g/dL (3.4-4.8); Alkaline Phosphatase 80 U/L (40-110); Anion Gap 13 mmol/L (10-20); BUN (Urea Nitrogen) 20 mg/dL (8.4-25.7); Bilirubin, Total 0.7 mg/dL (0.2-1.2); Calc. Creatinine Clearance 0 mL/min (70-130); Carbon Dioxide 30 mmol/L (23-31); Chloride 102 mmol/L (98-107); Globulin 2.6 g/dL (2.4-3.5); Glucose 97 mg/dL (83-110); Potassium 5.1 mmol/L (3.5-5.1); Sodium 140 mmol/L (136-145)
[2021-06-18 02:14] LABS: Magnesium 2.2 mg/dL (1.6-2.6)
[2021-06-18 03:51] LABS: Troponin I 0.015 ng/mL (< 0.028)
[2021-06-18 04:00] LABS: SARS-CoV-2 NAA Rapid Test Not Detected (NotDetected)
[2021-06-18] MEDS ORDERED: ALPRAZolam 0.5 MG TAB PO PRN (08:59)
[2021-06-18] MEDS ORDERED: Clopidogrel Bisulfate 75 MG TAB ONE (11:06)
[2021-06-18] MEDS ORDERED: Folic Acid 1 MG TAB ONE (11:06)
[2021-06-18] MEDS: Folic Acid 1 MG TAB PO SCH ×2 (11:10→21:02)
[2021-06-18] MEDS: Clopidogrel Bisulfate 75 MG TAB PO SCH (11:10)
[2021-06-18] MEDS: Ferrous Sulfate 325 MG TAB PO SCH (11:10)
[2021-06-18] MEDS: Amiodarone 200 MG TAB PO SCH ×2 (11:24→11:30)
[2021-06-18] MEDS: Sacubitril 49 MG/Valsartan 51 MG TABLET PO SCH ×2 (11:26→21:02)
[2021-06-18] MEDS ORDERED: Sodium Chloride 0.9% 300 ML IV SCH (12:00)
[2021-06-18] MEDS ORDERED: Atorvastatin Calcium 40 MG TAB PO SCH (21:00)
[2021-06-19] MEDS ORDERED: Levothyroxine Sodium 100 MCG TAB PO SCH (06:00)
[2021-06-19] MEDS: Amiodarone 200 MG TAB PO SCH (08:54)
[2021-06-19] MEDS: Sacubitril 49 MG/Valsartan 51 MG TABLET PO SCH (08:54)
[2021-06-19] MEDS: Clopidogrel Bisulfate 75 MG TAB PO SCH (08:55)
[2021-06-19] MEDS: Ferrous Sulfate 325 MG TAB PO SCH (08:55)
[2021-06-19] MEDS: Folic Acid 1 MG TAB PO SCH (08:55)
[2021-06-19 11:49] VITALS: TEMP 97.8
[2021-06-19 14:30] VITALS: BP 102/53
== END 2021-06-19 14:28 | disposition home or self-care (01) ==
LOC: ERS 22:58 → ERHOLD 06-18 02:10 → 2NO 06-18 16:59
PROVIDERS: ADMIT Internal Medicine; ATTEND Student in an Organized Health Care Education/Training Program
DX: I11.0 Hypertensive heart disease with heart failure (principal); I50.23 Acute on chronic systolic (congestive) heart failure; I50.32 Chronic diastolic (congestive) heart failure; I25.119 Atherosclerotic heart disease of native coronary artery with unspecified angina pectoris; I25.2 Old myocardial infarction; I48.20 Chronic atrial fibrillation, unspecified; I71.4 Abdominal aortic aneurysm, without rupture; N28.9 Disorder of kidney and ureter, unspecified; E78.5 Hyperlipidemia, unspecified; E03.9 Hypothyroidism, unspecified; G89.29 Other chronic pain; M54.9 Dorsalgia, unspecified; M06.9 Rheumatoid arthritis, unspecified; Z20.822 Contact with and (suspected) exposure to COVID-19; Z88.1 Allergy status to other antibiotic agents; Z88.8 Allergy status to other drugs, medicaments and biological substances; Z79.02 Long term (current) use of antithrombotics/antiplatelets; Z79.899 Other long term (current) drug therapy; Z95.810 Presence of automatic (implantable) cardiac defibrillator; Z95.1 Presence of aortocoronary bypass graft; Z96.651 Presence of right artificial knee joint; Z87.891 Personal history of nicotine dependence
CPT/HCPCS: 71045; 80053; 83735; 83880; 84484 ×3; 85025; 93005; G0378 ×3; U0002; 36415; J7030

== ENCOUNTER 2021-06-27 10:48 | Outpatient (CLI) | payer MEDICARE | END 2021-06-27 10:49 | disposition home or self-care (01) | LOC: BICCT 10:48 | PROVIDERS: ATTEND Nurse Practitioner Family | DX: I71.4 Abdominal aortic aneurysm, without rupture (principal) | CPT/HCPCS: 74175 ==

== ENCOUNTER 2021-07-29 05:44 | Day surgery (SDC) | payer MEDICARE ==
[2021-07-26 14:01] VITALS: BMI 30.4
[2021-07-29 06:58] LABS: SARS-CoV-2 NAA Rapid Test Not Detected (NotDetected)
[2021-07-29] MEDS ORDERED: Ketamine 50 MG/ML (10ML VIAL) ONE (08:06)
[2021-07-29] MEDS ORDERED: Lidocaine 1% PF 5 ML VIAL ONE (08:26)
[2021-07-29] MEDS ORDERED: PROPOFOL 200 MG/20 ML VIAL ONE (08:26)
[2021-07-29] MEDS ORDERED: Glycopyrrolate 0.2 MG/ML 5 ML SYRINGE ONE (08:26)
[2021-07-29 09:41] LABS: Iron Binding Capacity, Total 234 mcg/dL (261-462)
[2021-07-29 09:42] LABS: Iron 61 ug/dL (65-175)
[2021-07-29 10:06] LABS: Ferritin 844.31 ng/mL (22-322)
[2021-07-29 10:11] LABS: #Lymphocytes 1.1 thou/uL (1.20-3.40); #Monocytes 0.6 thou/uL (0.11-0.59); #Neutrophils 4.1 thou/uL (1.40-6.50); %Basophils 0.2 % (0.0-1.0); %Eosinophils 0.8 % (0.0-10.0); %Lymphocytes 18.6 % (21.0-51.0); %Monocytes 9.7 % (0.0-10.0); %Neutrophils 70.7 % (42.0-75.0); Hemoglobin 12.2 g/dL (14.0-18.0); Mean Corpuscular HGB CONC 31.5 g/dL (32.0-36.0); Mean Corpuscular Hemoglobin 29.5 pg (27.0-31.0); Mean Corpuscular Volume 93.8 fL (78.0-98.0); Mean Platelet Volume 8.5 fL (7.4-10.4); Platelet Count 115 thou/uL (130-400); Platelet Morphology Comment Appears Decreased; RBC Distribution Width 12.6 % (11.5-14.5); RBC Morphology Normal; Red Blood Cell (RBC) Count 4.13 mill/uL (4.70-6.10); White Blood Cell (WBC) Count 5.8 thou/uL (4.8-10.8)
== END 2021-07-29 09:29 | disposition home or self-care (01) ==
LOC: SDC 05:44
PROVIDERS: ATTEND Internal Medicine Gastroenterology
PROC: 0DB98ZX Excision of Duodenum, Via Natural or Artificial Opening Endoscopic, Diagnostic (ICD-10-PCS; principal; 2021-07-29)
DX: D50.9 Iron deficiency anemia, unspecified (principal); I25.2 Old myocardial infarction; I25.10 Atherosclerotic heart disease of native coronary artery without angina pectoris; I42.9 Cardiomyopathy, unspecified; E78.5 Hyperlipidemia, unspecified; I11.0 Hypertensive heart disease with heart failure; I50.9 Heart failure, unspecified; I48.91 Unspecified atrial fibrillation; M19.90 Unspecified osteoarthritis, unspecified site; Z87.891 Personal history of nicotine dependence; Z79.02 Long term (current) use of antithrombotics/antiplatelets; Z79.899 Other long term (current) drug therapy; Z88.1 Allergy status to other antibiotic agents; Z88.8 Allergy status to other drugs, medicaments and biological substances; Z95.1 Presence of aortocoronary bypass graft; Z95.5 Presence of coronary angioplasty implant and graft; Z95.810 Presence of automatic (implantable) cardiac defibrillator; Z20.822 Contact with and (suspected) exposure to COVID-19
CPT/HCPCS: 43239; 82607; 82728; 82746; 83540; 83550; 85025; U0002; 36415; 88305; J2704

== ENCOUNTER 2021-09-18 11:05 | Inpatient (IN) | payer MEDICARE ==
[2021-09-18 11:56] LABS: #Lymphocytes 0.5 thou/uL (1.20-3.40); #Monocytes 0.4 thou/uL (0.11-0.59); #Neutrophils 4.1 thou/uL (1.40-6.50); %Basophils 0.1 % (0.0-1.0); %Eosinophils 0.5 % (0.0-10.0); %Lymphocytes 9.7 % (21.0-51.0); %Monocytes 8.9 % (0.0-10.0); %Neutrophils 80.8 % (42.0-75.0); Hemoglobin 12.4 g/dL (14.0-18.0); Mean Corpuscular HGB CONC 32.7 g/dL (32.0-36.0); Mean Corpuscular Hemoglobin 30.6 pg (27.0-31.0); Mean Corpuscular Volume 93.5 fL (78.0-98.0); Mean Platelet Volume 6.9 fL (7.4-10.4); Platelet Count 158 thou/uL (130-400); RBC Distribution Width 12.7 % (11.5-14.5); Red Blood Cell (RBC) Count 4.04 mill/uL (4.70-6.10)
[2021-09-18 12:16] LABS: ALT (SGPT) 15 U/L (8-55); AST (SGOT) 16 U/L (5-34); Albumin 3.9 g/dL (3.4-4.8); Alkaline Phosphatase 68 U/L (40-110); Anion Gap 9 mmol/L (10-20); BUN (Urea Nitrogen) 17 mg/dL (8.4-25.7); Bilirubin, Total 0.9 mg/dL (0.2-1.2); Calc. Creatinine Clearance 0 mL/min (70-130); Calcium 9.3 mg/dL (7.8-10.44); Carbon Dioxide 30 mmol/L (23-31); Chloride 102 mmol/L (98-107); Globulin 2.4 g/dL (2.4-3.5); Glucose 110 mg/dL (83-110); Potassium 3.8 mmol/L (3.5-5.1); Protein, Total 6.3 g/dL (5.8-8.1); Sodium 137 mmol/L (136-145)
[2021-09-18 13:36] LABS: Magnesium 1.9 mg/dL (1.6-2.6)
[2021-09-18] MEDS ORDERED: Magnesium 2 GM/50 ML BAG (IN WATER) ONE (16:13)
[2021-09-18] MEDS ORDERED: Potassium Chloride 20 MEQ TAB PO SCH (16:45)
[2021-09-18] MEDS ORDERED: Amiodarone 150 MG, Admixture Fee 1 EACH in Dextrose 5% in Water 100 ML IVPB SCH ×2 (17:15)
[2021-09-18 17:27] VITALS: BMI 28.6
[2021-09-18] MEDS: Amiodarone 450 MG in Dextrose 5% in Water 250 ML IVPB SCH (18:05)
[2021-09-18] MEDS ORDERED: Senokot S 8.6-50 MG TAB PO PRN (18:43)
[2021-09-18] MEDS ORDERED: Acetaminophen 325 MG TAB PO PRN (18:43)
[2021-09-18] MEDS ORDERED: Ondansetron ODT 4 MG TAB PO PRN (18:43)
[2021-09-18] MEDS ORDERED: Ondansetron PF 4 MG/2 ML Vial IVP PRN (18:43)
[2021-09-18] MEDS ORDERED: Electrolyte Replacement Protocol FS PRN (18:45)
[2021-09-18] MEDS ORDERED: Electrolyte Replacement Protocol 1 EACH FS SCH (18:45)
[2021-09-18] MEDS: Atorvastatin Calcium 40 MG TAB PO SCH (20:34)
[2021-09-18] MEDS: Sacubitril 49 MG/Valsartan 51 MG TABLET PO SCH (20:34)
[2021-09-18 20:49] LABS: Troponin I 0.014 ng/mL (< 0.028)
[2021-09-19] MEDS: Amiodarone 450 MG in Dextrose 5% in Water 250 ML IVPB SCH (03:10)
[2021-09-19 05:03] LABS: #Eosinphils 0.1 thou/uL (0.0-0.7); #Lymphocytes 0.9 thou/uL (1.20-3.40); #Monocytes 0.5 thou/uL (0.11-0.59); #Neutrophils 3.2 thou/uL (1.40-6.50); %Basophils 0.6 % (0.0-1.0); %Eosinophils 1.7 % (0.0-10.0); %Lymphocytes 18.5 % (21.0-51.0); %Monocytes 10.8 % (0.0-10.0); %Neutrophils 68.4 % (42.0-75.0); Hemoglobin 12.1 g/dL (14.0-18.0); Mean Corpuscular HGB CONC 33.9 g/dL (32.0-36.0); Mean Corpuscular Hemoglobin 31.7 pg (27.0-31.0); Mean Corpuscular Volume 93.4 fL (78.0-98.0); Mean Platelet Volume 6.9 fL (7.4-10.4); Platelet Count 174 thou/uL (130-400); RBC Distribution Width 12.7 % (11.5-14.5); Red Blood Cell (RBC) Count 3.83 mill/uL (4.70-6.10); White Blood Cell (WBC) Count 4.7 thou/uL (4.8-10.8)
[2021-09-19 05:23] LABS: Anion Gap 10 mmol/L (10-20); BUN (Urea Nitrogen) 13 mg/dL (8.4-25.7); Calc. Creatinine Clearance 73 mL/min (70-130); Calcium 9.2 mg/dL (7.8-10.44); Carbon Dioxide 27 mmol/L (23-31); Cardiac Risk 3.2 (Less than 4.5); Chloride 103 mmol/L (98-107); Cholesterol 119 mg/dl (< 200 Desired); Glucose 87 mg/dL (83-110); HDL Cholesterol 37 mg/dL (>60 Neg Risk); Magnesium 2.1 mg/dL (1.6-2.6); Potassium 4.3 mmol/L (3.5-5.1); Sodium 136 mmol/L (136-145)
[2021-09-19 05:45] LABS: Triglycerides 77 mg/dL (Less than 150)
[2021-09-19 05:49] LABS: LDL Cholesterol, Calculated 67 mg/dL
[2021-09-19] MEDS: Levothyroxine Sodium 100 MCG TAB PO SCH (06:07)
[2021-09-19] MEDS: Sacubitril 49 MG/Valsartan 51 MG TABLET PO SCH ×2 (09:19→21:11)
[2021-09-19] MEDS: Ferrous Sulfate 325 MG TAB PO SCH ×2 (09:19→17:43)
[2021-09-19] MEDS: Spironolactone 25 MG TAB PO SCH (09:20)
[2021-09-19] MEDS: Clopidogrel Bisulfate 75 MG TAB PO SCH (09:20)
[2021-09-19] MEDS: Torsemide 10 MG TAB PO SCH (09:20)
[2021-09-19] MEDS: Folic Acid 1 MG TAB PO SCH (09:20)
[2021-09-19] MEDS: Amiodarone 200 MG TAB PO SCH ×3 (10:45→21:11)
[2021-09-19 11:28] LABS: SARS-CoV-2 PCR by NAA Not Detected (NotDetected)
[2021-09-19] MEDS ORDERED: Loratadine 10 MG TAB PO PRN (17:19)
[2021-09-19] MEDS ORDERED: Sodium Chloride 0.65% Nasal 44 ML BOT EA NARE PRN (17:19)
[2021-09-19 17:32] LABS: SARS-CoV-2 PCR by NAA Not Detected (NotDetected)
[2021-09-19] MEDS: Atorvastatin Calcium 40 MG TAB PO SCH (21:11)
[2021-09-20] MEDS: Levothyroxine Sodium 100 MCG TAB PO SCH (06:01)
[2021-09-20] MEDS: Ferrous Sulfate 325 MG TAB PO SCH (08:49)
[2021-09-20] MEDS: Clopidogrel Bisulfate 75 MG TAB PO SCH (08:49)
[2021-09-20] MEDS: Folic Acid 1 MG TAB PO SCH (08:50)
[2021-09-20] MEDS: Spironolactone 25 MG TAB PO SCH (08:50)
[2021-09-20] MEDS: Amiodarone 200 MG TAB PO SCH (08:50)
[2021-09-20] MEDS: Sacubitril 49 MG/Valsartan 51 MG TABLET PO SCH (08:51)
[2021-09-20] MEDS: Torsemide 10 MG TAB PO SCH ×2 (08:53→09:18)
[2021-09-20 12:22] VITALS: BP 100/62; TEMP 97.5
== END 2021-09-20 13:20 | disposition home or self-care (01) | DRG 308 ==
LOC: ERS 11:05 → 2NO 16:04
PROVIDERS: ADMIT Internal Medicine; ATTEND Family Medicine
DX: I47.2 Ventricular tachycardia (principal); I50.23 Acute on chronic systolic (congestive) heart failure; I11.0 Hypertensive heart disease with heart failure; E78.5 Hyperlipidemia, unspecified; E03.9 Hypothyroidism, unspecified; G89.29 Other chronic pain; M54.9 Dorsalgia, unspecified; I25.5 Ischemic cardiomyopathy; I71.4 Abdominal aortic aneurysm, without rupture; I48.0 Paroxysmal atrial fibrillation; I25.10 Atherosclerotic heart disease of native coronary artery without angina pectoris; J32.9 Chronic sinusitis, unspecified; D64.9 Anemia, unspecified; Z20.822 Contact with and (suspected) exposure to COVID-19; Z95.810 Presence of automatic (implantable) cardiac defibrillator; Z95.1 Presence of aortocoronary bypass graft; I25.2 Old myocardial infarction; Z95.5 Presence of coronary angioplasty implant and graft
CPT/HCPCS: 36415; 36416; 71045; 80048; 80053; 80061; 83735; 84443; 84484; 85025; 93005; 93010; J0282; J3475; J7070; U0003; U0005

== ENCOUNTER 2021-11-18 11:17 | Observation (INO) | payer MEDICARE ==
[2021-11-18 12:08] LABS: #Eosinphils 0.1 thou/uL (0.0-0.7); #Monocytes 0.7 thou/uL (0.11-0.59); #Neutrophils 4.3 thou/uL (1.40-6.50); %Basophils 0.1 % (0.0-1.0); %Monocytes 11.5 % (0.0-10.0); %Neutrophils 71.4 % (42.0-75.0); Hemoglobin 12.8 g/dL (14.0-18.0); Mean Corpuscular HGB CONC 31.6 g/dL (32.0-36.0); Mean Corpuscular Hemoglobin 29.8 pg (27.0-31.0); Mean Corpuscular Volume 94.3 fL (78.0-98.0); Mean Platelet Volume 7.4 fL (7.4-10.4); Platelet Count 175 thou/uL (130-400); RBC Distribution Width 12.9 % (11.5-14.5)
[2021-11-18 12:47] LABS: ALT (SGPT) 25 U/L (8-55); AST (SGOT) 18 U/L (5-34); Albumin 4.3 g/dL (3.4-4.8); Alkaline Phosphatase 75 U/L (40-110); Anion Gap 11 mmol/L (10-20); BUN (Urea Nitrogen) 25 mg/dL (8.4-25.7); Bilirubin, Total 0.8 mg/dL (0.2-1.2); Calc. Creatinine Clearance 0 mL/min (70-130); Calcium 9.5 mg/dL (7.8-10.44); Carbon Dioxide 28 mmol/L (23-31); Chloride 105 mmol/L (98-107); Globulin 2.3 g/dL (2.4-3.5); Glucose 93 mg/dL (83-110); Potassium 3.9 mmol/L (3.5-5.1); Protein, Total 6.6 g/dL (5.8-8.1); Sodium 140 mmol/L (136-145)
[2021-11-18] MEDS ORDERED: Ondansetron PF 4 MG/2 ML Vial IVP PRN (18:15)
[2021-11-18] MEDS ORDERED: Nitroglycerin 0.4 MG TAB (25 Tab Bottle) SL SCH (18:15)
[2021-11-18] MEDS ORDERED: Ondansetron ODT 4 MG TAB SL PRN (18:15)
[2021-11-18] MEDS ORDERED: Acetaminophen 325 MG TAB PO PRN (18:15)
[2021-11-18 19:54] VITALS: BMI 27.3
[2021-11-18] MEDS: Sacubitril 49 MG/Valsartan 51 MG TABLET PO SCH (21:36)
[2021-11-18] MEDS: Mexiletine HCl 150 MG CAP PO SCH (21:37)
[2021-11-18] MEDS: Amiodarone 200 MG TAB PO SCH (21:38)
[2021-11-18] MEDS: Ferrous Sulfate 325 MG TAB PO SCH (21:38)
[2021-11-18] MEDS: Metoprolol Tartrate 25 MG TAB PO SCH (23:37)
[2021-11-19 05:34] LABS: #Eosinphils 0.1 thou/uL (0.0-0.7); #Monocytes 0.5 thou/uL (0.11-0.59); %Eosinophils 1.2 % (0.0-10.0); %Monocytes 11.8 % (0.0-10.0); Hemoglobin 12.3 g/dL (14.0-18.0); Mean Corpuscular HGB CONC 31.9 g/dL (32.0-36.0); Mean Corpuscular Hemoglobin 30.3 pg (27.0-31.0); Mean Corpuscular Volume 95.2 fL (78.0-98.0); Mean Platelet Volume 7.1 fL (7.4-10.4); Platelet Count 168 thou/uL (130-400); RBC Distribution Width 12.7 % (11.5-14.5); Red Blood Cell (RBC) Count 4.06 mill/uL (4.70-6.10); White Blood Cell (WBC) Count 4.6 thou/uL (4.8-10.8)
[2021-11-19] MEDS: Levothyroxine Sodium 100 MCG TAB PO SCH (06:09)
[2021-11-19 06:11] LABS: Anion Gap 12 mmol/L (10-20); BUN (Urea Nitrogen) 21 mg/dL (8.4-25.7); Calc. Creatinine Clearance 58 mL/min (70-130); Calcium 9.1 mg/dL (7.8-10.44); Carbon Dioxide 26 mmol/L (23-31); Chloride 104 mmol/L (98-107); Glucose 86 mg/dL (83-110); Potassium 3.8 mmol/L (3.5-5.1); Sodium 138 mmol/L (136-145)
[2021-11-19] MEDS: Clopidogrel Bisulfate 75 MG TAB PO SCH (08:29)
[2021-11-19] MEDS: Mexiletine HCl 150 MG CAP PO SCH ×3 (08:30→19:43)
[2021-11-19] MEDS: Folic Acid 1 MG TAB PO SCH (08:30)
[2021-11-19] MEDS: Metoprolol Tartrate 25 MG TAB PO SCH (08:30)
[2021-11-19] MEDS: Sacubitril 49 MG/Valsartan 51 MG TABLET PO SCH (08:30)
[2021-11-19] MEDS: Amiodarone 200 MG TAB PO SCH ×2 (08:30→19:42)
[2021-11-19] MEDS: Enoxaparin Sodium 40 MG/0.4 ML SYRINGE SC SCH (08:30)
[2021-11-19] MEDS: Ferrous Sulfate 325 MG TAB PO SCH ×2 (08:30→19:43)
[2021-11-19] MEDS ORDERED: Spironolactone 25 MG TAB PO SCH (09:00)
[2021-11-19] MEDS ORDERED: Atorvastatin Calcium 40 MG TAB PO SCH (21:00)
[2021-11-20] MEDS: Levothyroxine Sodium 100 MCG TAB PO SCH (05:18)
[2021-11-20] MEDS: Mexiletine HCl 150 MG CAP PO SCH (08:30)
[2021-11-20] MEDS ORDERED: Potassium Chloride 20 MEQ TAB PO SCH (08:30)
[2021-11-20] MEDS ORDERED: Furosemide 40 MG/4 ML VIAL SLOW IVP SCH (08:30)
[2021-11-20] MEDS: Folic Acid 1 MG TAB PO SCH (08:30)
[2021-11-20] MEDS: Ferrous Sulfate 325 MG TAB PO SCH (08:30)
[2021-11-20] MEDS: Enoxaparin Sodium 40 MG/0.4 ML SYRINGE SC SCH (08:31)
[2021-11-20] MEDS: Amiodarone 200 MG TAB PO SCH (08:31)
[2021-11-20] MEDS: Clopidogrel Bisulfate 75 MG TAB PO SCH (08:31)
[2021-11-20] MEDS ORDERED: Torsemide 20 MG TAB PO SCH (09:00)
[2021-11-20] MEDS ORDERED: Spironolactone 25 MG TAB PO SCH (09:00)
[2021-11-20] MEDS ORDERED: Empagliflozin 10 MG TAB PO SCH (09:00)
[2021-11-20 12:13] VITALS: BP 102/58; TEMP 98.1
== END 2021-11-20 11:55 | disposition home or self-care (01) ==
LOC: ERS 11:17 → ERHOLD 15:36 → 2SW 17:25
PROVIDERS: ADMIT Hospitalist; ATTEND Internal Medicine
DX: R42 Dizziness and giddiness (principal); R06.02 Shortness of breath; R55 Syncope and collapse; I95.9 Hypotension, unspecified; I25.10 Atherosclerotic heart disease of native coronary artery without angina pectoris; I11.0 Hypertensive heart disease with heart failure; I50.43 Acute on chronic combined systolic (congestive) and diastolic (congestive) heart failure; E03.9 Hypothyroidism, unspecified; E78.5 Hyperlipidemia, unspecified; I47.2 Ventricular tachycardia; G89.29 Other chronic pain; M54.9 Dorsalgia, unspecified; M06.9 Rheumatoid arthritis, unspecified; I25.2 Old myocardial infarction; Z79.02 Long term (current) use of antithrombotics/antiplatelets; Z79.890 Hormone replacement therapy; Z79.899 Other long term (current) drug therapy; Z88.1 Allergy status to other antibiotic agents; Z88.8 Allergy status to other drugs, medicaments and biological substances; Z95.1 Presence of aortocoronary bypass graft; Z95.810 Presence of automatic (implantable) cardiac defibrillator
CPT/HCPCS: 71045; 80048; 80053; 83880; 84484 ×2; 85025 ×2; 93005; 93798 ×2; 96372 ×2; 96374; 99285; G0378 ×4; 36415; J1650; J1940

== ENCOUNTER 2021-11-28 11:31 | Emergency (ER) | payer MEDICARE ==
[2021-11-28 12:25] LABS: #Eosinphils 0.1 thou/uL (0.0-0.7); #Lymphocytes 1.3 thou/uL (1.20-3.40); #Monocytes 0.9 thou/uL (0.11-0.59); #Neutrophils 5.8 thou/uL (1.40-6.50); %Basophils 0.1 % (0.0-1.0); %Lymphocytes 15.9 % (21.0-51.0); %Monocytes 11.3 % (0.0-10.0); %Neutrophils 71.6 % (42.0-75.0); Hemoglobin 13.3 g/dL (14.0-18.0); Mean Corpuscular HGB CONC 31.2 g/dL (32.0-36.0); Mean Corpuscular Hemoglobin 29.2 pg (27.0-31.0); Mean Corpuscular Volume 93.6 fL (78.0-98.0); Mean Platelet Volume 7.4 fL (7.4-10.4); Platelet Count 198 thou/uL (130-400); RBC Distribution Width 12.8 % (11.5-14.5); Red Blood Cell (RBC) Count 4.54 mill/uL (4.70-6.10); White Blood Cell (WBC) Count 8.2 thou/uL (4.8-10.8)
[2021-11-28 13:02] LABS: ALT (SGPT) 27 U/L (8-55); AST (SGOT) 21 U/L (5-34); Albumin 4.4 g/dL (3.4-4.8); Alkaline Phosphatase 82 U/L (40-110); Anion Gap 14 mmol/L (10-20); BUN (Urea Nitrogen) 27 mg/dL (8.4-25.7); Bilirubin, Total 1.2 mg/dL (0.2-1.2); Calc. Creatinine Clearance 0 mL/min (70-130); Calcium 9.5 mg/dL (7.8-10.44); Carbon Dioxide 26 mmol/L (23-31); Chloride 102 mmol/L (98-107); Globulin 2.5 g/dL (2.4-3.5); Glucose 94 mg/dL (83-110); Potassium 4.3 mmol/L (3.5-5.1); Protein, Total 6.9 g/dL (5.8-8.1); Sodium 138 mmol/L (136-145)
[2021-11-28] MEDS ORDERED: Furosemide 40 MG TAB ONE (13:43)
[2021-11-28 14:06] LABS: Bilirubin Negative (Negative); Blood, Urine Negative (Negative); Clarity Clear (Clear); Glucose, Urine (Dipstick) Greater than 1000 mg/dL (Negative); Ketone, Urine Negative (Negative); Leukocyte Negative Leu/uL (Negative); Nitrite Negative (Negative); Protein, Urine (Dipstick) 10 mg/dL (Neg-Trace); Specific Gravity, Urine 1.023 (1.002-1.036); Urobilinogen Normal mg/dL (Less than 2); pH, Urine 5.5 (5.0-9.0)
== END 2021-11-28 14:07 | disposition home or self-care (01) ==
LOC: ERS 11:31
DX: I50.9 Heart failure, unspecified (principal); I25.2 Old myocardial infarction; I48.91 Unspecified atrial fibrillation; E78.5 Hyperlipidemia, unspecified; E03.9 Hypothyroidism, unspecified; Z87.891 Personal history of nicotine dependence; Z79.899 Other long term (current) drug therapy
CPT/HCPCS: 36415; 71045; 80053; 81003; 83880; 84484; 85025; 93005

== ENCOUNTER 2022-02-10 13:59 | Outpatient (CLI) | payer MEDICARE ==
[2022-02-11 00:51] LABS: SARS-CoV-2 PCR by NAA Not Detected (NotDetected)
== END 2022-02-10 14:00 | disposition home or self-care (01) ==
LOC: LABBT 13:59
PROVIDERS: ATTEND Neurological Surgery
DX: M54.16 Radiculopathy, lumbar region (principal); Z20.822 Contact with and (suspected) exposure to COVID-19
CPT/HCPCS: U0003; U0005

== ENCOUNTER 2022-02-14 11:43 | Day surgery (SDC) | payer MEDICARE ==
[2022-02-12 14:57] VITALS: BMI 27.9
[2022-02-14] MEDS ORDERED: fentaNYL Citrate/PF 100 MCG/2 ML SYRINGE ONE (13:33)
[2022-02-14] MEDS ORDERED: Dexmedetomidine 200 MCG/2 ML VIAL ONE (13:33)
[2022-02-14] MEDS ORDERED: Ketamine 50 MG/ML (10ML VIAL) ONE (13:34)
[2022-02-14] MEDS ORDERED: Midazolam HCl 2 mg/2 ml Vial ONE (13:34)
== END 2022-02-14 15:10 | disposition home or self-care (01) ==
LOC: MRI 11:43
PROVIDERS: ATTEND Neurological Surgery
DX: M47.26 Other spondylosis with radiculopathy, lumbar region (principal); M48.061 Spinal stenosis, lumbar region without neurogenic claudication; M51.16 Intervertebral disc disorders with radiculopathy, lumbar region; M47.815 Spondylosis without myelopathy or radiculopathy, thoracolumbar region; M47.817 Spondylosis without myelopathy or radiculopathy, lumbosacral region; M48.07 Spinal stenosis, lumbosacral region; I71.4 Abdominal aortic aneurysm, without rupture; I25.10 Atherosclerotic heart disease of native coronary artery without angina pectoris; I48.91 Unspecified atrial fibrillation; M06.9 Rheumatoid arthritis, unspecified; I13.0 Hypertensive heart and chronic kidney disease with heart failure and stage 1 through stage 4 chronic kidney disease, or unspecified chronic kidney disease; N18.9 Chronic kidney disease, unspecified; I50.9 Heart failure, unspecified; F03.90 Unspecified dementia, unspecified severity, without behavioral disturbance, psychotic disturbance, mood disturbance, and anxiety; E03.9 Hypothyroidism, unspecified; Z79.02 Long term (current) use of antithrombotics/antiplatelets; Z79.84 Long term (current) use of oral hypoglycemic drugs; Z79.890 Hormone replacement therapy; Z79.899 Other long term (current) drug therapy; Z88.1 Allergy status to other antibiotic agents; Z88.8 Allergy status to other drugs, medicaments and biological substances; Z95.1 Presence of aortocoronary bypass graft; Z95.810 Presence of automatic (implantable) cardiac defibrillator
CPT/HCPCS: 72148; J2250

== ENCOUNTER 2022-02-22 18:39 | Inpatient (IN) | payer MEDICARE ==
[~2022-02-22 18:39] MED LIST changes: +Iopamidol-370 76% 500 ML 1 ML ONE; -Sodium Chloride 0.9% 15 ML NEB ONE
[2022-02-22 19:04] LABS: #Lymphocytes 1.2 thou/uL (1.20-3.40); #Monocytes 0.7 thou/uL (0.11-0.59); #Neutrophils 4.8 thou/uL (1.40-6.50); %Eosinophils 0.7 % (0.0-10.0); %Lymphocytes 18.1 % (21.0-51.0); %Monocytes 10.9 % (0.0-10.0); %Neutrophils 70.3 % (42.0-75.0); Hemoglobin 14.6 g/dL (14.0-18.0); Mean Corpuscular HGB CONC 32.5 g/dL (32.0-36.0); Mean Corpuscular Hemoglobin 31.1 pg (27.0-31.0); Mean Corpuscular Volume 95.5 fL (78.0-98.0); Mean Platelet Volume 8.3 fL (7.4-10.4); Platelet Count 162 thou/uL (130-400); RBC Distribution Width 14.1 % (11.5-14.5); Red Blood Cell (RBC) Count 4.69 mill/uL (4.70-6.10); White Blood Cell (WBC) Count 6.8 thou/uL (4.8-10.8)
[2022-02-22 19:15] LABS: Prothrombin Time 14.6 sec (12.0-14.7)
[2022-02-22 19:16] LABS: PTT 29.9 sec (22.9-36.1)
[2022-02-22 19:17] LABS: INR-International Normal Ratio 1.1
[2022-02-22 19:21] LABS: ALT (SGPT) 101 U/L (8-55); AST (SGOT) 64 U/L (5-34); Albumin 4.3 g/dL (3.4-4.8); Alkaline Phosphatase 111 U/L (40-110); Anion Gap 13 mmol/L (10-20); BUN (Urea Nitrogen) 27 mg/dL (8.4-25.7); Bilirubin, Total 1.1 mg/dL (0.2-1.2); CK (CPK) 27 U/L (30-200); Calc. Creatinine Clearance 0 mL/min (70-130); Calcium 9.2 mg/dL (7.8-10.44); Carbon Dioxide 27 mmol/L (23-31); Chloride 103 mmol/L (98-107); Globulin 2.7 g/dL (2.4-3.5); Glucose 102 mg/dL (83-110); Potassium 4.2 mmol/L (3.5-5.1); Sodium 139 mmol/L (136-145)
[2022-02-22 19:27] LABS: Magnesium 2.2 mg/dL (1.6-2.6)
[2022-02-22 19:32] LABS: Acetaminophen Less than 10.0 mcg/mL (10.0-30.0); Alcohol Less than 10 mg/dL (Less than 10); Salicylate Less than 8.0 mg/dL (15.0-30.0)
[2022-02-22 19:43] LABS: CKMB 1.4 ng/mL (0-6.6)
[2022-02-22 19:45] LABS: Bilirubin Negative (Negative); Blood, Urine Negative (Negative); Clarity Clear (Clear); Glucose, Urine (Dipstick) Greater than 1000 mg/dL (Negative); Ketone, Urine Negative (Negative); Leukocyte Negative Leu/uL (Negative); Nitrite Negative (Negative); Protein, Urine (Dipstick) 10 mg/dL (Neg-Trace); Specific Gravity, Urine 1.023 (1.002-1.036); Urobilinogen Normal mg/dL (Less than 2); pH, Urine 5.5 (5.0-9.0)
[2022-02-22] MEDS ORDERED: Aspirin Chewable 81 MG TAB ONE (19:51)
[2022-02-22 19:54] LABS: Amphetamine Not Detected (NotDetected); Barbiturates Screen Not Detected (NotDetected); Benzodiazepine Screen Not Detected (NotDetected); Cocaine Metabolite Screen Not Detected (NotDetected); Methadone Not Detected (NotDetected); Methamphetamine Not Detected (NotDetected); Opiate Screen Detected (NotDetected); Oxycodone Screen Not Detected (NotDetected); Phencyclidine (PCP) Not Detected (NotDetected); THC/Cannabinoid Screen Not Detected (NotDetected); Tricyclic Screen Not Detected (NotDetected)
[2022-02-22 20:55] LABS: SARS-CoV-2 NAA Rapid Test Not Detected (NotDetected)
[2022-02-22] MEDS ORDERED: Acetaminophen 325 MG TAB PO PRN (21:10)
[2022-02-22] MEDS ORDERED: Ondansetron PF 4 MG/2 ML Vial IVP PRN (21:10)
[2022-02-22] MEDS ORDERED: Polyethylene Glycol 3350 17 GM Packet PO PRN (21:27)
[2022-02-22 23:18] LABS: Troponin I 0.028 ng/mL (< 0.028)
[2022-02-22] MEDS ORDERED: Atorvastatin Calcium 40 MG TAB PO SCH (23:30)
[2022-02-22] MEDS ORDERED: Mexiletine HCl 150 MG CAP PO SCH (23:30)
[2022-02-23 01:53] LABS: Troponin I 0.024 ng/mL (< 0.028)
[2022-02-23] MEDS ORDERED: Gabapentin 300 MG CAP PO PRN (04:21)
[2022-02-23] MEDS ORDERED: Docusate 100 MG CAP PO PRN (04:21)
[2022-02-23] MEDS: Levothyroxine Sodium 100 MCG TAB PO SCH (05:11)
[2022-02-23 05:25] LABS: #Lymphocytes 0.9 thou/uL (1.20-3.40); #Monocytes 0.7 thou/uL (0.11-0.59); #Neutrophils 3.2 thou/uL (1.40-6.50); %Basophils 0.6 % (0.0-1.0); %Eosinophils 0.9 % (0.0-10.0); %Monocytes 13.9 % (0.0-10.0); %Neutrophils 65.6 % (42.0-75.0); Hemoglobin 12.6 g/dL (14.0-18.0); Mean Corpuscular HGB CONC 31.6 g/dL (32.0-36.0); Mean Corpuscular Hemoglobin 30.4 pg (27.0-31.0); Mean Platelet Volume 8.8 fL (7.4-10.4); Platelet Count 134 thou/uL (130-400); RBC Distribution Width 14.1 % (11.5-14.5); Red Blood Cell (RBC) Count 4.14 mill/uL (4.70-6.10); White Blood Cell (WBC) Count 4.8 thou/uL (4.8-10.8)
[2022-02-23 05:45] LABS: Hemoglobin A1c 4.6 % (4.0-6.0)
[2022-02-23 05:55] LABS: ALT (SGPT) 88 U/L (8-55); AST (SGOT) 55 U/L (5-34); Albumin 3.5 g/dL (3.4-4.8); Alkaline Phosphatase 84 U/L (40-110); Anion Gap 9 mmol/L (10-20); BUN (Urea Nitrogen) 25 mg/dL (8.4-25.7); Bilirubin, Direct 0.4 mg/dL (0.1-0.3); Bilirubin, Total 0.7 mg/dL (0.2-1.2); Calc. Creatinine Clearance 47 mL/min (70-130); Calcium 8.5 mg/dL (7.8-10.44); Carbon Dioxide 27 mmol/L (23-31); Cardiac Risk 2.9 (Less than 4.5); Chloride 105 mmol/L (98-107); Cholesterol 85 mg/dl (< 200 Desired); Glucose 121 mg/dL (83-110); HDL Cholesterol 29 mg/dL (>60 Neg Risk); LDL Cholesterol, Calculated 43 mg/dL; Potassium 3.8 mmol/L (3.5-5.1); Protein, Total 5.7 g/dL (5.8-8.1); Sodium 137 mmol/L (136-145); Triglycerides 64 mg/dL (Less than 150)
[2022-02-23] MEDS ORDERED: Mexiletine HCl 150 MG CAP PO SCH (08:00)
[2022-02-23] MEDS ORDERED: Acetaminophen/Codeine 30-300mg Tablet PO PRN (08:42)
[2022-02-23] MEDS ORDERED: Polyethylene Glycol 3350 17 GM Packet PO PRN (08:42)
[2022-02-23] MEDS ORDERED: Nitroglycerin 0.4 MG TAB (25 Tab Bottle) SL PRN (08:42)
[2022-02-23] MEDS ORDERED: Empagliflozin 10 MG TAB PO SCH (09:00)
[2022-02-23] MEDS: Folic Acid 1 MG TAB PO SCH (09:17)
[2022-02-23] MEDS: Clopidogrel Bisulfate 75 MG TAB PO SCH (09:17)
[2022-02-23] MEDS: Heparin 5,000 UNITS/ML VIAL SC SCH ×2 (09:17→20:55)
[2022-02-23] MEDS: Ferrous Sulfate 325 MG TAB PO SCH ×2 (09:17→16:17)
[2022-02-23] MEDS: Aspirin 81 mg Enteric Coated Tablet PO SCH (09:17)
[2022-02-23] MEDS: Amiodarone 200 MG TAB PO SCH ×2 (09:33→20:55)
[2022-02-23] MEDS: Mexiletine HCl 150 MG CAP PO SCH (16:17)
[2022-02-23] MEDS: Atorvastatin Calcium 40 MG TAB PO SCH (20:55)
[2022-02-24] MEDS: Acetaminophen 500 MG TAB PO PRN (02:21)
[2022-02-24 04:36] LABS: Anion Gap 12 mmol/L (10-20); BUN (Urea Nitrogen) 16 mg/dL (8.4-25.7); Calc. Creatinine Clearance 60 mL/min (70-130); Calcium 8.3 mg/dL (7.8-10.44); Carbon Dioxide 23 mmol/L (23-31); Chloride 107 mmol/L (98-107); Glucose 81 mg/dL (83-110); Potassium 4.2 mmol/L (3.5-5.1); Sodium 138 mmol/L (136-145)
[2022-02-24] MEDS: Levothyroxine Sodium 100 MCG TAB PO SCH (05:43)
[2022-02-24] MEDS: Mexiletine HCl 150 MG CAP PO SCH ×3 (08:46→17:13)
[2022-02-24] MEDS: Folic Acid 1 MG TAB PO SCH (08:46)
[2022-02-24] MEDS: Amiodarone 200 MG TAB PO SCH ×2 (08:46→21:32)
[2022-02-24] MEDS: Heparin 5,000 UNITS/ML VIAL SC SCH ×2 (08:46→21:32)
[2022-02-24] MEDS: Ferrous Sulfate 325 MG TAB PO SCH ×2 (08:46→17:13)
[2022-02-24] MEDS: Clopidogrel Bisulfate 75 MG TAB PO SCH (08:46)
[2022-02-24] MEDS: Aspirin 81 mg Enteric Coated Tablet PO SCH (09:23)
[2022-02-24 12:39] VITALS: BMI 26.4
[2022-02-24] MEDS: Atorvastatin Calcium 40 MG TAB PO SCH (21:32)
[2022-02-25] MEDS: Levothyroxine Sodium 100 MCG TAB PO SCH (05:52)
[2022-02-25 06:20] LABS: Anion Gap 13 mmol/L (10-20); BUN (Urea Nitrogen) 17 mg/dL (8.4-25.7); Calc. Creatinine Clearance 51 mL/min (70-130); Calcium 8.7 mg/dL (7.8-10.44); Carbon Dioxide 23 mmol/L (23-31); Chloride 106 mmol/L (98-107); Glucose 91 mg/dL (83-110); Potassium 4.2 mmol/L (3.5-5.1); Sodium 138 mmol/L (136-145)
[2022-02-25] MEDS: Clopidogrel Bisulfate 75 MG TAB PO SCH (08:37)
[2022-02-25] MEDS: Amiodarone 200 MG TAB PO SCH ×2 (08:37→20:07)
[2022-02-25] MEDS: Heparin 5,000 UNITS/ML VIAL SC SCH ×2 (08:37→20:07)
[2022-02-25] MEDS: Ferrous Sulfate 325 MG TAB PO SCH ×2 (08:37→17:24)
[2022-02-25] MEDS: Folic Acid 1 MG TAB PO SCH (08:37)
[2022-02-25] MEDS: Mexiletine HCl 150 MG CAP PO SCH ×3 (08:37→17:24)
[2022-02-25] MEDS: Atorvastatin Calcium 40 MG TAB PO SCH (20:07)
[2022-02-26] MEDS: Levothyroxine Sodium 100 MCG TAB PO SCH (05:11)
[2022-02-26] MEDS: Folic Acid 1 MG TAB PO SCH (09:15)
[2022-02-26] MEDS: Amiodarone 200 MG TAB PO SCH ×2 (09:15→21:05)
[2022-02-26] MEDS: Clopidogrel Bisulfate 75 MG TAB PO SCH (09:15)
[2022-02-26] MEDS: Ferrous Sulfate 325 MG TAB PO SCH ×2 (09:15→16:31)
[2022-02-26] MEDS: Mexiletine HCl 150 MG CAP PO SCH ×3 (09:16→16:31)
[2022-02-26] MEDS: Heparin 5,000 UNITS/ML VIAL SC SCH ×2 (09:28→21:04)
[2022-02-26] MEDS ORDERED: Morphine 2 MG/ML VIAL SLOW IVP SCH (09:30)
[2022-02-26] MEDS ORDERED: Ondansetron PF 4 MG/2 ML Vial IVP SCH (09:30)
[2022-02-26] MEDS: Atorvastatin Calcium 40 MG TAB PO SCH (21:04)
[2022-02-26] MEDS: Famotidine 20 MG TAB PO SCH (21:04)
[2022-02-27] MEDS: Levothyroxine Sodium 100 MCG TAB PO SCH (05:04)
[2022-02-27 05:11] LABS: #Eosinphils 0.1 thou/uL (0.0-0.7); #Lymphocytes 0.9 thou/uL (1.20-3.40); #Monocytes 0.6 thou/uL (0.11-0.59); #Neutrophils 3.8 thou/uL (1.40-6.50); %Basophils 0.1 % (0.0-1.0); %Eosinophils 0.9 % (0.0-10.0); %Monocytes 11.9 % (0.0-10.0); Hemoglobin 13.2 g/dL (14.0-18.0); Mean Corpuscular HGB CONC 31.6 g/dL (32.0-36.0); Mean Corpuscular Hemoglobin 30.2 pg (27.0-31.0); Mean Corpuscular Volume 95.6 fL (78.0-98.0); Mean Platelet Volume 8.6 fL (7.4-10.4); Platelet Count 160 thou/uL (130-400); RBC Distribution Width 14.1 % (11.5-14.5); Red Blood Cell (RBC) Count 4.37 mill/uL (4.70-6.10); White Blood Cell (WBC) Count 5.4 thou/uL (4.8-10.8)
[2022-02-27 05:36] LABS: ALT (SGPT) 122 U/L (8-55); AST (SGOT) 62 U/L (5-34); Albumin 3.7 g/dL (3.4-4.8); Alkaline Phosphatase 100 U/L (40-110); Anion Gap 13 mmol/L (10-20); BUN (Urea Nitrogen) 20 mg/dL (8.4-25.7); Bilirubin, Total 0.8 mg/dL (0.2-1.2); Calc. Creatinine Clearance 49 mL/min (70-130); Calcium 8.9 mg/dL (7.8-10.44); Carbon Dioxide 24 mmol/L (23-31); Chloride 104 mmol/L (98-107); Globulin 2.3 g/dL (2.4-3.5); Glucose 89 mg/dL (83-110); Sodium 137 mmol/L (136-145)
[2022-02-27] MEDS ORDERED: Fentanyl 100 MCG/2 ML VIAL ONE (07:13)
[2022-02-27] MEDS ORDERED: Dexmedetomidine 200 MCG/2 ML VIAL ONE (07:20)
[2022-02-27] MEDS ORDERED: Ketamine 50 MG/ML (10ML VIAL) ONE (07:20)
[2022-02-27] MEDS: Heparin 5,000 UNITS/ML VIAL SC SCH ×2 (08:42→21:40)
[2022-02-27] MEDS: Clopidogrel Bisulfate 75 MG TAB PO SCH (08:43)
[2022-02-27] MEDS: Ferrous Sulfate 325 MG TAB PO SCH ×2 (08:43→17:02)
[2022-02-27] MEDS: Folic Acid 1 MG TAB PO SCH (08:43)
[2022-02-27] MEDS: Famotidine 20 MG TAB PO SCH ×2 (08:43→21:39)
[2022-02-27] MEDS: Amiodarone 200 MG TAB PO SCH ×2 (08:44→21:55)
[2022-02-27] MEDS: Mexiletine HCl 150 MG CAP PO SCH ×3 (08:51→17:02)
[2022-02-27] MEDS: Atorvastatin Calcium 40 MG TAB PO SCH (21:39)
[2022-02-28] MEDS: Levothyroxine Sodium 100 MCG TAB PO SCH (06:03)
[2022-02-28] MEDS: Mexiletine HCl 150 MG CAP PO SCH ×3 (10:00→18:05)
[2022-02-28] MEDS: Heparin 5,000 UNITS/ML VIAL SC SCH ×2 (10:00→21:08)
[2022-02-28] MEDS: Clopidogrel Bisulfate 75 MG TAB PO SCH (10:00)
[2022-02-28] MEDS: Famotidine 20 MG TAB PO SCH ×2 (10:00→21:08)
[2022-02-28] MEDS: Folic Acid 1 MG TAB PO SCH (10:00)
[2022-02-28] MEDS: Amiodarone 200 MG TAB PO SCH ×2 (10:01→21:08)
[2022-02-28] MEDS: Acetaminophen 500 MG TAB PO PRN (10:01)
[2022-02-28] MEDS: Ferrous Sulfate 325 MG TAB PO SCH ×2 (10:01→18:05)
[2022-02-28] MEDS: Atorvastatin Calcium 40 MG TAB PO SCH (21:08)
[2022-03-01] MEDS: Levothyroxine Sodium 100 MCG TAB PO SCH (05:48)
[2022-03-01] MEDS: Clopidogrel Bisulfate 75 MG TAB PO SCH (09:25)
[2022-03-01] MEDS: Amiodarone 200 MG TAB PO SCH (09:25)
[2022-03-01] MEDS: Ferrous Sulfate 325 MG TAB PO SCH ×2 (09:25→18:11)
[2022-03-01] MEDS: Folic Acid 1 MG TAB PO SCH (09:25)
[2022-03-01] MEDS: Famotidine 20 MG TAB PO SCH (09:25)
[2022-03-01] MEDS: Heparin 5,000 UNITS/ML VIAL SC SCH (09:25)
[2022-03-01] MEDS: Mexiletine HCl 150 MG CAP PO SCH ×3 (09:28→18:11)
[2022-03-01] MEDS ORDERED: Fluticasone Propionate Nasal Spray 16 gm Bottle NASAL PRN (14:15)
[2022-03-01 16:41] VITALS: BP 116/63; TEMP 97
== END 2022-03-01 19:08 | DRG 69 ==
LOC: ERS 18:39 → NEURO 21:10 → OBSVTOIN 02-23 17:40
PROVIDERS: ADMIT Family Medicine; ATTEND Family Medicine
DX: G45.9 Transient cerebral ischemic attack, unspecified (principal); S32.059A Unspecified fracture of fifth lumbar vertebra, initial encounter for closed fracture; Z20.822 Contact with and (suspected) exposure to COVID-19; I42.0 Dilated cardiomyopathy; I50.22 Chronic systolic (congestive) heart failure; I13.0 Hypertensive heart and chronic kidney disease with heart failure and stage 1 through stage 4 chronic kidney disease, or unspecified chronic kidney disease; I47.2 Ventricular tachycardia; I48.0 Paroxysmal atrial fibrillation; I25.5 Ischemic cardiomyopathy; N18.30 Chronic kidney disease, stage 3 unspecified; E78.5 Hyperlipidemia, unspecified; G31.84 Mild cognitive impairment of uncertain or unknown etiology; G89.29 Other chronic pain; E03.9 Hypothyroidism, unspecified; R74.8 Abnormal levels of other serum enzymes; I71.4 Abdominal aortic aneurysm, without rupture; I25.10 Atherosclerotic heart disease of native coronary artery without angina pectoris; G25.2 Other specified forms of tremor; M06.9 Rheumatoid arthritis, unspecified; I73.9 Peripheral vascular disease, unspecified; N40.0 Benign prostatic hyperplasia without lower urinary tract symptoms; Z96.651 Presence of right artificial knee joint; Z95.1 Presence of aortocoronary bypass graft; Z88.1 Allergy status to other antibiotic agents; Z88.8 Allergy status to other drugs, medicaments and biological substances; Z79.899 Other long term (current) drug therapy; Z79.02 Long term (current) use of antithrombotics/antiplatelets; Z79.890 Hormone replacement therapy; Z95.810 Presence of automatic (implantable) cardiac defibrillator; Z90.49 Acquired absence of other specified parts of digestive tract; Z98.890 Other specified postprocedural states; Z98.42 Cataract extraction status, left eye; Z98.41 Cataract extraction status, right eye; Z82.49 Family history of ischemic heart disease and other diseases of the circulatory system; Z87.891 Personal history of nicotine dependence
CPT/HCPCS: 36415; 70450; 70496; 70498; 70551; 71045; 80048; 80053; 80061; 80306; 80307; 81003; 82550; 82553; 83036; 83735; 84443; 84484; 85025; 85610; 85730; 93005; 93306; 96372; G0378; J1644; J2270; J2405; J3010; Q9967; U0002

== ENCOUNTER 2022-04-23 22:08 | Inpatient (IN) | payer MEDICARE ==
[2022-04-23 22:43] LABS: #Basophils 0.1 thou/uL (0.0-0.2); #Lymphocytes 0.6 thou/uL (1.20-3.40); #Monocytes 0.7 thou/uL (0.11-0.59); #Neutrophils 5.1 thou/uL (1.40-6.50); %Basophils 0.8 % (0.0-1.0); %Eosinophils 0.4 % (0.0-10.0); %Lymphocytes 9.8 % (21.0-51.0); %Monocytes 10.3 % (0.0-10.0); %Neutrophils 78.7 % (42.0-75.0); Hemoglobin 13.6 g/dL (14.0-18.0); Mean Corpuscular HGB CONC 31.4 g/dL (32.0-36.0); Mean Corpuscular Hemoglobin 28.4 pg (27.0-31.0); Mean Corpuscular Volume 90.6 fL (78.0-98.0); Mean Platelet Volume 9.3 fL (7.4-10.4); Platelet Count 145 thou/uL (130-400); RBC Distribution Width 15.2 % (11.5-14.5); Red Blood Cell (RBC) Count 4.79 mill/uL (4.70-6.10); White Blood Cell (WBC) Count 6.5 thou/uL (4.8-10.8)
[2022-04-23 23:06] LABS: ALT (SGPT) 74 U/L (8-55); AST (SGOT) 49 U/L (5-34); Albumin 4.1 g/dL (3.4-4.8); Alkaline Phosphatase 111 U/L (40-110); Anion Gap 13 mmol/L (10-20); BUN (Urea Nitrogen) 23 mg/dL (8.4-25.7); Calc. Creatinine Clearance 0 mL/min (70-130); Calcium 9.6 mg/dL (7.8-10.44); Carbon Dioxide 29 mmol/L (23-31); Chloride 99 mmol/L (98-107); Estimated GFR 45; Globulin 2.6 g/dL (2.4-3.5); Glucose 106 mg/dL (83-110); Potassium 4.4 mmol/L (3.5-5.1); Protein, Total 6.7 g/dL (5.8-8.1); Sodium 137 mmol/L (136-145)
[2022-04-23 23:33] LABS: Bilirubin Negative (Negative); Blood, Urine Negative (Negative); Clarity Clear (Clear); Glucose, Urine (Dipstick) Greater than 1000 mg/dL (Negative); Ketone, Urine Negative (Negative); Leukocyte Negative Leu/uL (Negative); Nitrite Negative (Negative); Protein, Urine (Dipstick) Negative (Neg-Trace); Specific Gravity, Urine 1.018 (1.002-1.036); Urobilinogen Normal mg/dL (Less than 2)
[2022-04-24 04:45] VITALS: BMI 28.0
[2022-04-24 06:55] LABS: #Lymphocytes 0.9 thou/uL (1.20-3.40); #Monocytes 0.6 thou/uL (0.11-0.59); #Neutrophils 3.5 thou/uL (1.40-6.50); %Basophils 0.4 % (0.0-1.0); %Eosinophils 0.8 % (0.0-10.0); %Lymphocytes 17.2 % (21.0-51.0); %Monocytes 11.2 % (0.0-10.0); %Neutrophils 70.4 % (42.0-75.0); Hemoglobin 12.3 g/dL (14.0-18.0); Mean Corpuscular HGB CONC 31.5 g/dL (32.0-36.0); Mean Corpuscular Hemoglobin 28.7 pg (27.0-31.0); Mean Corpuscular Volume 91.2 fL (78.0-98.0); Mean Platelet Volume 9.1 fL (7.4-10.4); Platelet Count 129 thou/uL (130-400); RBC Distribution Width 14.9 % (11.5-14.5); Red Blood Cell (RBC) Count 4.29 mill/uL (4.70-6.10)
[2022-04-24 07:14] LABS: Anion Gap 12 mmol/L (10-20); BUN (Urea Nitrogen) 20 mg/dL (8.4-25.7); Calc. Creatinine Clearance 60 mL/min (70-130); Calcium 8.9 mg/dL (7.8-10.44); Carbon Dioxide 28 mmol/L (23-31); Chloride 101 mmol/L (98-107); Estimated GFR 60; Glucose 78 mg/dL (83-110); Potassium 4.1 mmol/L (3.5-5.1); Sodium 137 mmol/L (136-145)
[2022-04-24] MEDS ORDERED: Senokot S 8.6-50 MG TAB PO PRN (08:42)
[2022-04-24] MEDS ORDERED: Ondansetron ODT 4 MG TAB PO PRN (08:42)
[2022-04-24] MEDS ORDERED: Acetaminophen 325 MG TAB PO PRN (08:42)
[2022-04-24] MEDS ORDERED: Ondansetron PF 4 MG/2 ML Vial IVP PRN (08:42)
[2022-04-24] MEDS ORDERED: Torsemide 20 MG TAB PO SCH (08:45)
[2022-04-24] MEDS ORDERED: Non-Formulary Item 1 EACH (Cholecalciferol (Vitamin D3) [Vitamin D3] 1,000 UNIT Capsule) PO SCH (09:00)
[2022-04-24] MEDS ORDERED: Levothyroxine Sodium 50 MCG TAB PO SCH (09:00)
[2022-04-24] MEDS ORDERED: Empagliflozin 10 MG TAB PO SCH (09:00)
[2022-04-24] MEDS ORDERED: Non-Formulary Item 1 EACH (Multivit-Min/Fa/Lycopen/Lutein [Centrum Silver Men Tablet] 1 E PO SCH (09:00)
[2022-04-24] MEDS ORDERED: MEMANTINE HCL 14 MG PO SCH (09:00)
[2022-04-24] MEDS: Tamsulosin HCl 0.4 MG CAP PO SCH (09:43)
[2022-04-24] MEDS: Multivitamin W/ Minerals 1 TAB PO SCH (09:43)
[2022-04-24] MEDS: Folic Acid 1 MG TAB PO SCH (09:43)
[2022-04-24] MEDS: Spironolactone 25 MG TAB PO SCH (09:43)
[2022-04-24] MEDS: Clopidogrel Bisulfate 75 MG TAB PO SCH (09:44)
[2022-04-24] MEDS: Amiodarone 200 MG TAB PO SCH ×2 (09:44→20:42)
[2022-04-24] MEDS: Cholecalciferol 1,000 UNITS (25 MCG) TAB PO SCH (09:44)
[2022-04-24] MEDS: Calcium Carbonate 600 MG TAB PO SCH (09:44)
[2022-04-24] MEDS ORDERED: Dextrose 5% in Water 1,000 ML IV PRN (09:57)
[2022-04-24] MEDS ORDERED: Dextrose 50% Abboject 50 ML SYRINGE SLOW IVP PRN (09:57)
[2022-04-24 11:08] LABS: Troponin I 0.031 ng/mL (< 0.028)
[2022-04-24] MEDS ORDERED: Mexiletine HCl 150 MG CAP PO SCH (12:00)
[2022-04-24 14:03] LABS: Troponin I 0.024 ng/mL (< 0.028)
[2022-04-24] MEDS: Ferrous Sulfate 325 MG TAB PO SCH (16:37)
[2022-04-24] MEDS ORDERED: Non-Formulary Item 1 EACH (Ferrous Sulfate [Ferrous Sulfate] 325 MG Tablet) PO SCH (17:00)
[2022-04-24] MEDS: Mexiletine HCl 150 MG CAP PO SCH (20:42)
[2022-04-24] MEDS ORDERED: Atorvastatin Calcium 40 MG TAB PO SCH (21:00)
[2022-04-25 05:05] LABS: #Lymphocytes 0.8 thou/uL (1.20-3.40); #Monocytes 0.6 thou/uL (0.11-0.59); #Neutrophils 3.8 thou/uL (1.40-6.50); %Basophils 0.1 % (0.0-1.0); %Eosinophils 0.8 % (0.0-10.0); %Monocytes 11.1 % (0.0-10.0); %Neutrophils 71.9 % (42.0-75.0); Hemoglobin 13.1 g/dL (14.0-18.0); Mean Corpuscular HGB CONC 31.5 g/dL (32.0-36.0); Mean Corpuscular Hemoglobin 28.8 pg (27.0-31.0); Mean Corpuscular Volume 91.5 fL (78.0-98.0); Mean Platelet Volume 9.2 fL (7.4-10.4); Platelet Count 137 thou/uL (130-400); Red Blood Cell (RBC) Count 4.55 mill/uL (4.70-6.10); White Blood Cell (WBC) Count 5.2 thou/uL (4.8-10.8)
[2022-04-25 05:25] LABS: Anion Gap 14 mmol/L (10-20); BUN (Urea Nitrogen) 19 mg/dL (8.4-25.7); Calc. Creatinine Clearance 64 mL/min (70-130); Calcium 9.1 mg/dL (7.8-10.44); Carbon Dioxide 25 mmol/L (23-31); Chloride 103 mmol/L (98-107); Estimated GFR 66; Glucose 97 mg/dL (83-110); Sodium 138 mmol/L (136-145)
[2022-04-25] MEDS ORDERED: Levothyroxine Sodium 100 MCG TAB PO SCH (06:00)
[2022-04-25] MEDS: Ferrous Sulfate 325 MG TAB PO SCH ×2 (07:38→17:50)
[2022-04-25] MEDS ORDERED: Torsemide 20 MG TAB PO SCH (09:00)
[2022-04-25] MEDS: Multivitamin W/ Minerals 1 TAB PO SCH (09:31)
[2022-04-25] MEDS: Calcium Carbonate 600 MG TAB PO SCH (09:31)
[2022-04-25] MEDS: Spironolactone 25 MG TAB PO SCH (09:32)
[2022-04-25] MEDS: Cholecalciferol 1,000 UNITS (25 MCG) TAB PO SCH (09:33)
[2022-04-25] MEDS: Mexiletine HCl 150 MG CAP PO SCH (09:33)
[2022-04-25] MEDS: Tamsulosin HCl 0.4 MG CAP PO SCH (09:34)
[2022-04-25] MEDS: Clopidogrel Bisulfate 75 MG TAB PO SCH (09:34)
[2022-04-25] MEDS: Amiodarone 200 MG TAB PO SCH (09:34)
[2022-04-25] MEDS: Folic Acid 1 MG TAB PO SCH (09:34)
[2022-04-25 15:41] VITALS: BP 117/79
[2022-04-25 15:45] VITALS: TEMP 97.9
== END 2022-04-25 18:50 | disposition home health service (06) | DRG 300 ==
LOC: ERS 22:08 → NEURO 04-24 01:24 → OBSVTOIN 04-24 01:24
PROVIDERS: ADMIT Internal Medicine; ATTEND Internal Medicine
DX: I71.4 Abdominal aortic aneurysm, without rupture (principal); I50.22 Chronic systolic (congestive) heart failure; I13.0 Hypertensive heart and chronic kidney disease with heart failure and stage 1 through stage 4 chronic kidney disease, or unspecified chronic kidney disease; I48.20 Chronic atrial fibrillation, unspecified; Z20.822 Contact with and (suspected) exposure to COVID-19; I95.89 Other hypotension; I25.10 Atherosclerotic heart disease of native coronary artery without angina pectoris; E78.5 Hyperlipidemia, unspecified; M19.90 Unspecified osteoarthritis, unspecified site; E03.9 Hypothyroidism, unspecified; M06.9 Rheumatoid arthritis, unspecified; N18.30 Chronic kidney disease, stage 3 unspecified; E11.22 Type 2 diabetes mellitus with diabetic chronic kidney disease; F03.90 Unspecified dementia, unspecified severity, without behavioral disturbance, psychotic disturbance, mood disturbance, and anxiety; Z96.651 Presence of right artificial knee joint; K81.9 Cholecystitis, unspecified; I25.2 Old myocardial infarction; Z98.890 Other specified postprocedural states; Z95.810 Presence of automatic (implantable) cardiac defibrillator; Z98.42 Cataract extraction status, left eye; Z98.41 Cataract extraction status, right eye; Z87.891 Personal history of nicotine dependence; Z86.73 Personal history of transient ischemic attack (TIA), and cerebral infarction without residual deficits; Z88.8 Allergy status to other drugs, medicaments and biological substances; Z79.899 Other long term (current) drug therapy; Z79.02 Long term (current) use of antithrombotics/antiplatelets; Z79.890 Hormone replacement therapy; Z95.1 Presence of aortocoronary bypass graft; Z90.49 Acquired absence of other specified parts of digestive tract
CPT/HCPCS: 36415; 36416; 71045; 74177; 76705; 80048; 80053; 81003; 83605; 84145; 84484; 85025; 85379; 86140; 93005; 93010; Q9967; U0003; U0005

== ENCOUNTER 2022-05-08 01:50 | Inpatient (IN) | payer OTHER, MEDICARE ==
[2022-05-08] MEDS ORDERED: Fentanyl 100 MCG/2 ML VIAL ONE ×3 (03:18→14:19)
[2022-05-08 06:36] LABS: Bilirubin Negative (Negative); Blood, Urine Negative (Negative); Clarity Clear (Clear); Glucose, Urine (Dipstick) Greater than 1000 mg/dL (Negative); Ketone, Urine Negative (Negative); Leukocyte Negative Leu/uL (Negative); Nitrite Negative (Negative); Protein, Urine (Dipstick) 20 mg/dL (Neg-Trace); Specific Gravity, Urine 1.024 (1.002-1.036); Urobilinogen Normal mg/dL (Less than 2)
[2022-05-08 06:49] LABS: #Lymphocytes 0.6 thou/uL (1.20-3.40); #Monocytes 0.8 thou/uL (0.11-0.59); #Neutrophils 6.1 thou/uL (1.40-6.50); %Basophils 0.1 % (0.0-1.0); %Eosinophils 0.6 % (0.0-10.0); %Lymphocytes 8.2 % (21.0-51.0); %Neutrophils 80.1 % (42.0-75.0); Hemoglobin 13.1 g/dL (14.0-18.0); Mean Corpuscular HGB CONC 31.5 g/dL (32.0-36.0); Mean Corpuscular Hemoglobin 28.4 pg (27.0-31.0); Mean Corpuscular Volume 90.1 fL (78.0-98.0); Mean Platelet Volume 8.9 fL (7.4-10.4); Platelet Count 139 thou/uL (130-400); RBC Distribution Width 15.5 % (11.5-14.5); Red Blood Cell (RBC) Count 4.62 mill/uL (4.70-6.10); White Blood Cell (WBC) Count 7.6 thou/uL (4.8-10.8)
[2022-05-08 07:09] LABS: ALT (SGPT) 128 U/L (8-55); AST (SGOT) 77 U/L (5-34); Albumin 3.8 g/dL (3.4-4.8); Alkaline Phosphatase 102 U/L (40-110); Anion Gap 15 mmol/L (10-20); BUN (Urea Nitrogen) 26 mg/dL (8.4-25.7); Bilirubin, Total 1.3 mg/dL (0.2-1.2); Calc. Creatinine Clearance 0 mL/min (70-130); Carbon Dioxide 27 mmol/L (23-31); Chloride 99 mmol/L (98-107); Estimated GFR 44; Globulin 2.5 g/dL (2.4-3.5); Glucose 99 mg/dL (83-110); Potassium 3.9 mmol/L (3.5-5.1); Protein, Total 6.3 g/dL (5.8-8.1); Sodium 137 mmol/L (136-145)
[2022-05-08 07:30] LABS: CKMB 1.7 ng/mL (0-6.6)
[2022-05-08] MEDS ORDERED: Levothyroxine Sodium 50 MCG TAB PO SCH (09:00)
[2022-05-08] MEDS ORDERED: MEMANTINE HCL 14 MG PO SCH (09:00)
[2022-05-08] MEDS ORDERED: Bisacodyl 5 MG TAB PO PRN (09:03)
[2022-05-08 10:48] LABS: SARS-CoV-2 NAA Rapid Test Not Detected (NotDetected)
[2022-05-08 11:14] LABS: Troponin I 0.021 ng/mL (< 0.028)
[2022-05-08] MEDS ORDERED: Morphine 4 MG/ML VIAL ONE ×2 (15:22→16:05)
[2022-05-08] MEDS ORDERED: Non-Formulary Item 1 EACH (Ferrous Sulfate [Ferrous Sulfate] 325 MG Tablet) PO SCH (17:00)
[2022-05-08] MEDS: Empagliflozin 10 MG TAB PO SCH (17:11)
[2022-05-08] MEDS: Folic Acid 1 MG TAB PO SCH (17:11)
[2022-05-08] MEDS: Amiodarone 200 MG TAB PO SCH ×2 (17:11→21:06)
[2022-05-08] MEDS: Multivitamin W/ Minerals 1 TAB PO SCH (17:11)
[2022-05-08] MEDS: Mexiletine HCl 150 MG CAP PO SCH ×2 (17:11→21:06)
[2022-05-08] MEDS: Clopidogrel Bisulfate 75 MG TAB PO SCH (17:11)
[2022-05-08] MEDS: Spironolactone 25 MG TAB PO SCH (17:11)
[2022-05-08] MEDS ORDERED: Morphine 4 MG/ML VIAL SLOW IVP SCH (18:30)
[2022-05-08] MEDS: Ferrous Sulfate 325 MG TAB PO SCH (18:49)
[2022-05-08] MEDS: Tamsulosin HCl 0.4 MG CAP PO SCH (18:50)
[2022-05-08] MEDS: Atorvastatin Calcium 40 MG TAB PO SCH (21:06)
[2022-05-08] MEDS: Acetaminophen 325 MG TAB PO PRN (21:06)
[2022-05-08] MEDS: Gabapentin 300 MG CAP PO PRN (21:06)
[2022-05-09] MEDS: Levothyroxine Sodium 100 MCG TAB PO SCH (05:40)
[2022-05-09 05:58] LABS: #Lymphocytes 0.8 thou/uL (1.20-3.40); #Monocytes 0.9 thou/uL (0.11-0.59); #Neutrophils 6.9 thou/uL (1.40-6.50); %Basophils 0.1 % (0.0-1.0); %Eosinophils 0.6 % (0.0-10.0); %Lymphocytes 9.5 % (21.0-51.0); %Monocytes 10.7 % (0.0-10.0); %Neutrophils 79.2 % (42.0-75.0); Hemoglobin 12.8 g/dL (14.0-18.0); Mean Corpuscular Hemoglobin 27.9 pg (27.0-31.0); Mean Corpuscular Volume 89.7 fL (78.0-98.0); Mean Platelet Volume 8.7 fL (7.4-10.4); Platelet Count 157 thou/uL (130-400); RBC Distribution Width 15.7 % (11.5-14.5); White Blood Cell (WBC) Count 8.7 thou/uL (4.8-10.8)
[2022-05-09 06:11] LABS: Anion Gap 16 mmol/L (10-20); BUN (Urea Nitrogen) 23 mg/dL (8.4-25.7); Calc. Creatinine Clearance 53 mL/min (70-130); Calcium 8.5 mg/dL (7.8-10.44); Carbon Dioxide 24 mmol/L (23-31); Chloride 102 mmol/L (98-107); Estimated GFR 60; Glucose 87 mg/dL (83-110); Potassium 3.9 mmol/L (3.5-5.1); Sodium 138 mmol/L (136-145)
[2022-05-09] MEDS ORDERED: fentaNYL Citrate/PF 100 MCG/2 ML SYRINGE ONE (10:13)
[2022-05-09] MEDS ORDERED: Ondansetron PF 4 MG/2 ML Vial ONE (10:34)
[2022-05-09] MEDS ORDERED: ePHEDrine 50 MG/ML VIAL ONE (10:34)
[2022-05-09] MEDS ORDERED: PROPOFOL 200 MG/20 ML VIAL ONE (10:34)
[2022-05-09] MEDS ORDERED: Phenylephrine 10 MG/ML VIAL ONE (10:34)
[2022-05-09] MEDS ORDERED: Lidocaine 1% PF 5 ML VIAL ONE (10:34)
[2022-05-09] MEDS ORDERED: Meperidine HCl/PF 25 MG/ML VIAL SLOW IVP PRN (11:59)
[2022-05-09] MEDS ORDERED: Promethazine HCl 25 MG/ML VIAL IVPB PRN (11:59)
[2022-05-09] MEDS ORDERED: Promethazine HCl 25 MG/ML VIAL IM PRN (11:59)
[2022-05-09] MEDS ORDERED: PACU-Morphine 4MG/ML VIAL SLOW IVP PRN (11:59)
[2022-05-09] MEDS ORDERED: Magnevist 469MG/ML 20 ML VIAL ONE ×2 (14:50)
[2022-05-09] MEDS: Ferrous Sulfate 325 MG TAB PO SCH ×2 (17:04→17:37)
[2022-05-09] MEDS: Folic Acid 1 MG TAB PO SCH (17:04)
[2022-05-09] MEDS: Amiodarone 200 MG TAB PO SCH ×2 (17:04→21:16)
[2022-05-09] MEDS: Clopidogrel Bisulfate 75 MG TAB PO SCH (17:04)
[2022-05-09] MEDS: Empagliflozin 10 MG TAB PO SCH (17:04)
[2022-05-09] MEDS: Mexiletine HCl 150 MG CAP PO SCH ×2 (17:05→21:16)
[2022-05-09] MEDS: Multivitamin W/ Minerals 1 TAB PO SCH (17:05)
[2022-05-09] MEDS: Acetaminophen 325 MG TAB PO PRN (17:37)
[2022-05-09] MEDS: Torsemide 10 MG TAB PO SCH (17:37)
[2022-05-09] MEDS: Tamsulosin HCl 0.4 MG CAP PO SCH (17:37)
[2022-05-09] MEDS: Spironolactone 25 MG TAB PO SCH (17:37)
[2022-05-09] MEDS: Atorvastatin Calcium 40 MG TAB PO SCH (21:16)
[2022-05-10 05:34] LABS: #Lymphocytes 0.6 thou/uL (1.20-3.40); #Monocytes 1.2 thou/uL (0.11-0.59); #Neutrophils 9.2 thou/uL (1.40-6.50); %Eosinophils 0.3 % (0.0-10.0); %Monocytes 10.9 % (0.0-10.0); %Neutrophils 83.8 % (42.0-75.0); Hemoglobin 13.6 g/dL (14.0-18.0); Mean Corpuscular HGB CONC 31.3 g/dL (32.0-36.0); Mean Corpuscular Hemoglobin 28.2 pg (27.0-31.0); Mean Corpuscular Volume 90.2 fL (78.0-98.0); Mean Platelet Volume 8.4 fL (7.4-10.4); Platelet Count 152 thou/uL (130-400); RBC Distribution Width 15.5 % (11.5-14.5); Red Blood Cell (RBC) Count 4.82 mill/uL (4.70-6.10); White Blood Cell (WBC) Count 10.9 thou/uL (4.8-10.8)
[2022-05-10] MEDS: Levothyroxine Sodium 100 MCG TAB PO SCH (05:34)
[2022-05-10 05:54] LABS: Anion Gap 15 mmol/L (10-20); BUN (Urea Nitrogen) 28 mg/dL (8.4-25.7); Calc. Creatinine Clearance 47 mL/min (70-130); Calcium 8.4 mg/dL (7.8-10.44); Carbon Dioxide 25 mmol/L (23-31); Chloride 100 mmol/L (98-107); Estimated GFR 52; Glucose 92 mg/dL (83-110); Potassium 4.1 mmol/L (3.5-5.1); Sodium 136 mmol/L (136-145)
[2022-05-10] MEDS: Ferrous Sulfate 325 MG TAB PO SCH ×2 (10:06→18:27)
[2022-05-10] MEDS: Folic Acid 1 MG TAB PO SCH (10:06)
[2022-05-10] MEDS: Multivitamin W/ Minerals 1 TAB PO SCH (10:06)
[2022-05-10] MEDS: Tamsulosin HCl 0.4 MG CAP PO SCH (10:06)
[2022-05-10] MEDS: Amiodarone 200 MG TAB PO SCH ×2 (10:07→21:23)
[2022-05-10] MEDS: Clopidogrel Bisulfate 75 MG TAB PO SCH (10:07)
[2022-05-10] MEDS: Spironolactone 25 MG TAB PO SCH (10:14)
[2022-05-10] MEDS: Mexiletine HCl 150 MG CAP PO SCH ×2 (12:40→21:23)
[2022-05-10] MEDS: Empagliflozin 10 MG TAB PO SCH (14:47)
[2022-05-10] MEDS: Atorvastatin Calcium 40 MG TAB PO SCH (21:23)
[2022-05-11] MEDS: Levothyroxine Sodium 100 MCG TAB PO SCH (06:16)
[2022-05-11] MEDS: Ferrous Sulfate 325 MG TAB PO SCH ×2 (08:37→17:30)
[2022-05-11] MEDS: Multivitamin W/ Minerals 1 TAB PO SCH (08:37)
[2022-05-11] MEDS: Spironolactone 25 MG TAB PO SCH (08:38)
[2022-05-11] MEDS: Tamsulosin HCl 0.4 MG CAP PO SCH (08:38)
[2022-05-11] MEDS: Empagliflozin 10 MG TAB PO SCH (08:38)
[2022-05-11] MEDS: Amiodarone 200 MG TAB PO SCH ×2 (08:38→21:51)
[2022-05-11] MEDS: Mexiletine HCl 150 MG CAP PO SCH ×2 (08:38→22:01)
[2022-05-11] MEDS: Folic Acid 1 MG TAB PO SCH (08:38)
[2022-05-11] MEDS: Clopidogrel Bisulfate 75 MG TAB PO SCH (08:39)
[2022-05-11 08:57] LABS: #Lymphocytes 0.6 thou/uL (1.20-3.40); #Monocytes 1.1 thou/uL (0.11-0.59); #Neutrophils 10.2 thou/uL (1.40-6.50); %Basophils 0.2 % (0.0-1.0); %Eosinophils 0.2 % (0.0-10.0); %Lymphocytes 4.7 % (21.0-51.0); %Monocytes 9.1 % (0.0-10.0); %Neutrophils 85.8 % (42.0-75.0); Hemoglobin 13.6 g/dL (14.0-18.0); Mean Corpuscular HGB CONC 30.7 g/dL (32.0-36.0); Mean Corpuscular Hemoglobin 28.1 pg (27.0-31.0); Mean Corpuscular Volume 91.5 fL (78.0-98.0); Mean Platelet Volume 8.5 fL (7.4-10.4); Platelet Count 171 thou/uL (130-400); RBC Distribution Width 15.5 % (11.5-14.5); Red Blood Cell (RBC) Count 4.85 mill/uL (4.70-6.10); White Blood Cell (WBC) Count 11.9 thou/uL (4.8-10.8)
[2022-05-11 09:19] LABS: Anion Gap 13 mmol/L (10-20); BUN (Urea Nitrogen) 32 mg/dL (8.4-25.7); Calc. Creatinine Clearance 51 mL/min (70-130); Calcium 8.5 mg/dL (7.8-10.44); Carbon Dioxide 27 mmol/L (23-31); Chloride 96 mmol/L (98-107); Estimated GFR 57; Glucose 116 mg/dL (83-110); Potassium 4.4 mmol/L (3.5-5.1); Sodium 132 mmol/L (136-145)
[2022-05-11] MEDS: Atorvastatin Calcium 40 MG TAB PO SCH (21:51)
[2022-05-12] MEDS: Levothyroxine Sodium 100 MCG TAB PO SCH (05:43)
[2022-05-12] MEDS: Gabapentin 300 MG CAP PO PRN (05:46)
[2022-05-12 06:17] LABS: #Lymphocytes 0.5 thou/uL (1.20-3.40); #Monocytes 1.3 thou/uL (0.11-0.59); #Neutrophils 10.9 thou/uL (1.40-6.50); %Eosinophils 0.3 % (0.0-10.0); %Lymphocytes 3.8 % (21.0-51.0); %Monocytes 10.2 % (0.0-10.0); %Neutrophils 85.7 % (42.0-75.0); Hemoglobin 13.3 g/dL (14.0-18.0); Mean Corpuscular HGB CONC 31.7 g/dL (32.0-36.0); Mean Corpuscular Hemoglobin 28.9 pg (27.0-31.0); Mean Corpuscular Volume 91.1 fL (78.0-98.0); Mean Platelet Volume 8.5 fL (7.4-10.4); Platelet Count 165 thou/uL (130-400); RBC Distribution Width 15.3 % (11.5-14.5); Red Blood Cell (RBC) Count 4.59 mill/uL (4.70-6.10); White Blood Cell (WBC) Count 12.7 thou/uL (4.8-10.8)
[2022-05-12 06:37] LABS: Anion Gap 14 mmol/L (10-20); BUN (Urea Nitrogen) 32 mg/dL (8.4-25.7); Calc. Creatinine Clearance 58 mL/min (70-130); Calcium 8.6 mg/dL (7.8-10.44); Carbon Dioxide 29 mmol/L (23-31); Chloride 95 mmol/L (98-107); Estimated GFR 68; Glucose 105 mg/dL (83-110); Potassium 4.5 mmol/L (3.5-5.1); Sodium 133 mmol/L (136-145)
[2022-05-12] MEDS ORDERED: Furosemide 20 MG/2 ML VIAL SLOW IVP SCH (08:00)
[2022-05-12] MEDS ORDERED: Vancomycin 1 GM in Premix Bag 1 BAG IVPB SCH (09:00)
[2022-05-12] MEDS: Saccharomyces boulardii 250 MG CAP PO SCH (10:07)
[2022-05-12] MEDS: guaiFENesin ER 600 MG TAB PO SCH ×2 (10:08→22:49)
[2022-05-12] MEDS: Spironolactone 25 MG TAB PO SCH (10:08)
[2022-05-12] MEDS: Multivitamin W/ Minerals 1 TAB PO SCH (10:08)
[2022-05-12] MEDS: Tamsulosin HCl 0.4 MG CAP PO SCH (10:08)
[2022-05-12] MEDS: Amiodarone 200 MG TAB PO SCH ×2 (10:08→22:49)
[2022-05-12] MEDS: Ferrous Sulfate 325 MG TAB PO SCH ×2 (10:09→17:51)
[2022-05-12] MEDS: Torsemide 10 MG TAB PO SCH (10:09)
[2022-05-12] MEDS: Clopidogrel Bisulfate 75 MG TAB PO SCH (10:09)
[2022-05-12] MEDS: Folic Acid 1 MG TAB PO SCH (10:09)
[2022-05-12] MEDS: Mexiletine HCl 150 MG CAP PO SCH ×2 (10:09→22:56)
[2022-05-12] MEDS: Acetaminophen 325 MG TAB PO PRN ×2 (10:10→17:56)
[2022-05-12] MEDS: Empagliflozin 10 MG TAB PO SCH (10:10)
[2022-05-12] MEDS: VANCOMYCIN 1.25 GM/250 ML BAG 1.25 GM in Premix Bag 1 BAG IVPB SCH (11:56)
[2022-05-12] MEDS: Simethicone Chewable 80 MG TAB PO SCH ×2 (17:51→22:48)
[2022-05-12] MEDS: Atorvastatin Calcium 40 MG TAB PO SCH (22:49)
[2022-05-13 05:31] LABS: #Lymphocytes 0.3 thou/uL (1.20-3.40); #Monocytes 1.1 thou/uL (0.11-0.59); #Neutrophils 9.8 thou/uL (1.40-6.50); %Basophils 0.1 % (0.0-1.0); %Eosinophils 0.3 % (0.0-10.0); %Lymphocytes 2.9 % (21.0-51.0); %Monocytes 9.6 % (0.0-10.0); %Neutrophils 87.1 % (42.0-75.0); Hemoglobin 13.1 g/dL (14.0-18.0); Mean Corpuscular HGB CONC 30.4 g/dL (32.0-36.0); Mean Corpuscular Volume 92.1 fL (78.0-98.0); Mean Platelet Volume 8.2 fL (7.4-10.4); Platelet Count 174 thou/uL (130-400); RBC Distribution Width 15.3 % (11.5-14.5); Red Blood Cell (RBC) Count 4.67 mill/uL (4.70-6.10); White Blood Cell (WBC) Count 11.3 thou/uL (4.8-10.8)
[2022-05-13] MEDS: Acetaminophen 325 MG TAB PO PRN (05:50)
[2022-05-13] MEDS: Gabapentin 300 MG CAP PO PRN (05:51)
[2022-05-13] MEDS: Levothyroxine Sodium 100 MCG TAB PO SCH (05:51)
[2022-05-13 06:13] LABS: Anion Gap 13 mmol/L (10-20); BUN (Urea Nitrogen) 38 mg/dL (8.4-25.7); Calc. Creatinine Clearance 54 mL/min (70-130); Calcium 8.8 mg/dL (7.8-10.44); Carbon Dioxide 28 mmol/L (23-31); Chloride 95 mmol/L (98-107); Estimated GFR 62; Glucose 101 mg/dL (83-110); Potassium 4.2 mmol/L (3.5-5.1); Sodium 132 mmol/L (136-145)
[2022-05-13] MEDS: Multivitamin W/ Minerals 1 TAB PO SCH (08:26)
[2022-05-13] MEDS: Clopidogrel Bisulfate 75 MG TAB PO SCH (08:26)
[2022-05-13] MEDS: Simethicone Chewable 80 MG TAB PO SCH ×4 (08:26→20:20)
[2022-05-13] MEDS: guaiFENesin ER 600 MG TAB PO SCH ×2 (08:26→20:21)
[2022-05-13] MEDS: Spironolactone 25 MG TAB PO SCH (08:26)
[2022-05-13] MEDS: Ferrous Sulfate 325 MG TAB PO SCH ×2 (08:26→17:57)
[2022-05-13] MEDS: Folic Acid 1 MG TAB PO SCH (08:26)
[2022-05-13] MEDS: Amiodarone 200 MG TAB PO SCH ×2 (08:27→20:14)
[2022-05-13] MEDS: Empagliflozin 10 MG TAB PO SCH (08:27)
[2022-05-13] MEDS: Tamsulosin HCl 0.4 MG CAP PO SCH (08:27)
[2022-05-13] MEDS: Saccharomyces boulardii 250 MG CAP PO SCH (08:27)
[2022-05-13] MEDS: Mexiletine HCl 150 MG CAP PO SCH ×2 (10:03→20:15)
[2022-05-13] MEDS: VANCOMYCIN 1.25 GM/250 ML BAG 1.25 GM in Premix Bag 1 BAG IVPB SCH (10:03)
[2022-05-13] MEDS ORDERED: Furosemide 40 MG/4 ML VIAL SLOW IVP SCH (16:00)
[2022-05-13] MEDS ORDERED: Sodium Chloride 0.9% 500 ML IVPB SCH (20:00)
[2022-05-13] MEDS ORDERED: Midodrine HCl 5 MG TAB PO SCH (20:15)
[2022-05-13] MEDS: Atorvastatin Calcium 40 MG TAB PO SCH (20:20)
[2022-05-13] MEDS: Enoxaparin Sodium 40 MG/0.4 ML SYRINGE SC SCH (20:21)
[2022-05-13] MEDS ORDERED: Sodium Chloride 0.9% 250 ML IVPB SCH (20:45)
[2022-05-13] MEDS ORDERED: NOREPINEPHRINE 8 MG/250 ML-D5W 250 ML IVPB SCH (21:00)
[2022-05-13 23:18] VITALS: BP 79/49
[2022-05-14 04:27] LABS: #Lymphocytes 0.5 thou/uL (1.20-3.40); #Neutrophils 10.6 thou/uL (1.40-6.50); %Eosinophils 0.3 % (0.0-10.0); %Lymphocytes 3.9 % (21.0-51.0); %Monocytes 8.1 % (0.0-10.0); %Neutrophils 87.7 % (42.0-75.0); Hemoglobin 12.6 g/dL (14.0-18.0); Mean Corpuscular HGB CONC 30.4 g/dL (32.0-36.0); Mean Corpuscular Hemoglobin 27.7 pg (27.0-31.0); Mean Corpuscular Volume 91.3 fL (78.0-98.0); Mean Platelet Volume 8.5 fL (7.4-10.4); Platelet Count 183 thou/uL (130-400); RBC Distribution Width 15.5 % (11.5-14.5); Red Blood Cell (RBC) Count 4.53 mill/uL (4.70-6.10); White Blood Cell (WBC) Count 12.1 thou/uL (4.8-10.8)
[2022-05-14 05:07] LABS: Anion Gap 14 mmol/L (10-20); BUN (Urea Nitrogen) 47 mg/dL (8.4-25.7); Calc. Creatinine Clearance 40 mL/min (70-130); Carbon Dioxide 27 mmol/L (23-31); Chloride 93 mmol/L (98-107); Estimated GFR 43; Glucose 104 mg/dL (83-110); Potassium 4.3 mmol/L (3.5-5.1); Sodium 130 mmol/L (136-145)
[2022-05-14 05:50] VITALS: BMI 25.6
[2022-05-14] MEDS: Levothyroxine Sodium 100 MCG TAB PO SCH (06:46)
[2022-05-14] MEDS: Amiodarone 200 MG TAB PO SCH ×2 (09:10→21:48)
[2022-05-14] MEDS: Empagliflozin 10 MG TAB PO SCH (09:10)
[2022-05-14] MEDS: guaiFENesin ER 600 MG TAB PO SCH (09:10)
[2022-05-14] MEDS: Tamsulosin HCl 0.4 MG CAP PO SCH (09:10)
[2022-05-14] MEDS: Multivitamin W/ Minerals 1 TAB PO SCH (09:10)
[2022-05-14] MEDS: Clopidogrel Bisulfate 75 MG TAB PO SCH (09:10)
[2022-05-14] MEDS: Saccharomyces boulardii 250 MG CAP PO SCH (09:10)
[2022-05-14] MEDS: Folic Acid 1 MG TAB PO SCH (09:11)
[2022-05-14] MEDS: Simethicone Chewable 80 MG TAB PO SCH ×2 (09:11→12:24)
[2022-05-14] MEDS: Ferrous Sulfate 325 MG TAB PO SCH (09:11)
[2022-05-14] MEDS: Spironolactone 25 MG TAB PO SCH (09:11)
[2022-05-14] MEDS: Mexiletine HCl 150 MG CAP PO SCH ×2 (09:14→21:48)
[2022-05-14] MEDS ORDERED: DOBUTamine 500 mg/250 ml 250 ML IVPB SCH (09:30)
[2022-05-14 09:59] LABS: Vancomycin, Trough 13.5 ug/mL
[2022-05-14] MEDS ORDERED: Vancomycin 1.5 GRAM/300 ML BAG 1.5 GM in Premix Bag 1 BAG IVPB SCH (10:00)
[2022-05-14] MEDS: Torsemide 10 MG TAB PO SCH (10:06)
[2022-05-14] MEDS: VANCOMYCIN 1.25 GM/250 ML BAG 1.25 GM in Premix Bag 1 BAG IVPB SCH (13:07)
[2022-05-14 13:44] LABS: Actual Bicarbonate (HCO3a) 22.5 mEq/L (22-28); Base Excess (BEa) -4.8 mEq/L (-2.0 to +3.0); CO2 Tension 50.7 mmHg (35.0-45.0); Calcium, Ionized (arterial) 1.22 mmol/L (1.12-1.30); Carboxyhemoglobin (COHb) 1.1 gm% (0.0-3.0); Hemoglobin (Hb) 13.5 g/dL (14.0-18.0); Potassium - ABG Lab 4.37 mmol/L (3.70-5.30); pH, Arterial 7.27 (7.35-7.45)
[2022-05-14 13:46] LABS: O2 Tension (PaO2), arterial 48.8 mmHg (> 60.0); Puncture Site RBA
[2022-05-14] MEDS ORDERED: Morphine 4 MG/ML VIAL SLOW IVP PRN (14:23)
[2022-05-14 21:21] VITALS: TEMP 97.7
[2022-05-14] MEDS: Enoxaparin Sodium 40 MG/0.4 ML SYRINGE SC SCH (21:49)
[2022-05-15] MEDS ORDERED: DOBUTamine 500 mg/250 ml 250 ML IVPB SCH (09:45)
== END 2022-05-14 23:32 | disposition expired | DRG 551 ==
LOC: ERS 01:50 → SUATTDRO 01:50 → ERHOLD 06:05 → SURG A 11:26 → 2NO 15:52 → ERHOLD 16:03 → SURG B 16:06 → OBSVTOIN 05-09 12:54 → 2NO 05-13 15:59 → CCU 05-13 22:38
PROVIDERS: ADMIT Internal Medicine; ATTEND Internal Medicine
PROC: 5A0935A Assistance with Respiratory Ventilation, Less than 24 Consecutive Hours, High Flow/Velocity Cannula (ICD-10-PCS; principal; 2022-05-14)
PROC: 5A09357 Assistance with Respiratory Ventilation, Less than 24 Consecutive Hours, Continuous Positive Airway Pressure (ICD-10-PCS; 2022-05-14)
PROC: 3E033XZ Introduction of Vasopressor into Peripheral Vein, Percutaneous Approach (ICD-10-PCS; 2022-05-14)
DX: S32.029A Unspecified fracture of second lumbar vertebra, initial encounter for closed fracture (principal); Z66 Do not resuscitate; Z51.5 Encounter for palliative care; Z20.822 Contact with and (suspected) exposure to COVID-19; I50.43 Acute on chronic combined systolic (congestive) and diastolic (congestive) heart failure; J18.9 Pneumonia, unspecified organism; J96.01 Acute respiratory failure with hypoxia; S22.039A Unspecified fracture of third thoracic vertebra, initial encounter for closed fracture; I13.0 Hypertensive heart and chronic kidney disease with heart failure and stage 1 through stage 4 chronic kidney disease, or unspecified chronic kidney disease; N17.9 Acute kidney failure, unspecified; I42.9 Cardiomyopathy, unspecified; F03.90 Unspecified dementia, unspecified severity, without behavioral disturbance, psychotic disturbance, mood disturbance, and anxiety; I25.10 Atherosclerotic heart disease of native coronary artery without angina pectoris; E78.5 Hyperlipidemia, unspecified; E11.22 Type 2 diabetes mellitus with diabetic chronic kidney disease; E03.9 Hypothyroidism, unspecified; Z96.651 Presence of right artificial knee joint; N18.2 Chronic kidney disease, stage 2 (mild); R77.8 Other specified abnormalities of plasma proteins; E11.51 Type 2 diabetes mellitus with diabetic peripheral angiopathy without gangrene; I71.4 Abdominal aortic aneurysm, without rupture; G89.29 Other chronic pain; I48.0 Paroxysmal atrial fibrillation; Y95 Nosocomial condition; R29.6 Repeated falls; W01.0XXA Fall on same level from slipping, tripping and stumbling without subsequent striking against object, initial encounter; Y92.009 Unspecified place in unspecified non-institutional (private) residence as the place of occurrence of the external cause; Z88.1 Allergy status to other antibiotic agents; Z88.8 Allergy status to other drugs, medicaments and biological substances; Z79.899 Other long term (current) drug therapy; Z79.02 Long term (current) use of antithrombotics/antiplatelets; Z79.890 Hormone replacement therapy; Z86.73 Personal history of transient ischemic attack (TIA), and cerebral infarction without residual deficits; Z95.810 Presence of automatic (implantable) cardiac defibrillator; Z95.1 Presence of aortocoronary bypass graft; Z90.49 Acquired absence of other specified parts of digestive tract; Z98.890 Other specified postprocedural states; Z98.42 Cataract extraction status, left eye; Z98.41 Cataract extraction status, right eye; Z87.891 Personal history of nicotine dependence; Z82.49 Family history of ischemic heart disease and other diseases of the circulatory system; Z91.81 History of falling
CPT/HCPCS: 36415; 36600; 51701; 71045; 72128; 72131; 72157; 72158; 74018; 80048; 80053; 80202; 81003; 82553; 82805; 83880; 84145; 84484; 85025; 87070; 87205; 93005; 94640; 94660; 96374; 96376; A9579; G0378; J1250; J1650; J1940; J1956; J2270; J2370; J2405; J2704; J3010; J3370; J3490; J7030; J7070; J7620; U0002